=== PATIENT | female | born 1940 | race Caucasian/White ===

== ENCOUNTER 2016-10-31 12:36 | Observation (INO) ==
--- NOTE | 2016-10-31 12:49 | Emergency Department Note ---
Disposition Referrals: NO,PCP [Primary Care Provider] - Forms: ED Satisfaction Letter General Adult HPI - General Chief complaint: ED Arrhythmia/Palpitations Stated complaint: A-Fib Time Seen by Provider: 10/31/16 12:42 Source: patient Limitations: no limitations - History of Present Illness HPI Narrative: Dizziness, palpitations this AM. PCP: Dr. Mc Pain Scale: 0 - Related Data Home Medications Medication Instructions Recorded Confirmed Aspirin [Adult Low Dose Aspirin EC] 81 mg PO DAILY 07/24/15 08/06/15 Gabapentin [Neurontin] 300 mg PO TID 07/24/15 08/06/15 Niacin [Niaspan] 500 mg PO DAILY 07/24/15 08/06/15 [place]-3/Dha/Epa/Fish Oil [Fish Oil 1,000 mg PO TID 07/24/15 08/06/15 Dr 500 mg Softgel] Furosemide [Lasix] 40 mg PO BID 08/11/15 08/11/15 Previous Rx's Medication Instructions Recorded Rivaroxaban [Xarelto] 20 mg PO DAILY #30 tablet 07/27/15 Amiodarone [Cordarone] 200 mg PO DAILY tablet 08/06/15 Diltiazem CD (24hr) [Cardizem CD] 180 mg PO DAILY cap.er.24h 08/06/15 Levalbuterol Neb [Xopenex Neb] 0.63 mg IH [id number] vial.neb 08/06/15 Metoprolol [Lopressor] 50 mg PO BID tablet 08/06/15 Multivit/Ca/Min/Fe/FA [Thera M 1 tab PO DAILY tablet 08/06/15 Plus] Allergies Allergy/AdvReac Type Severity Reaction Status Date / Time Cyclobenzaprine AdvReac Hallucinati Verified 07/24/15 19:41 [From Flexeril] ng fenofibrate [From Tricor] AdvReac Muscle Pain Verified 07/24/15 19:41 Eupxseq-Vmg-Itb Reductase AdvReac Muscle Pain Verified 07/24/15 17:51 Inhibitor [Statins] tramadol [From Ultram] AdvReac Itching Verified 07/24/15 19:41 Past Medical History - Past Medical History Medical history: Reports: arthritis, asthma, atrial fibrillation, cardiomyopathy , CHF, coronary artery disease, GERD, hyperlipidemia, hypertension, myocardial infarction, osteoporosis, pulmonary embolus, SVT, syncope, valvular heart disease, other Surgical history: Reports: cataract, cholecystectomy, knee replacement, other Psychiatric history: Reports: anxiety, depression - Social History Smoking Status: Never smoker Smokeless Tobacco Status: No Alcohol use: Reports: none Drug use: Reports: none Physical Exam - General Limitations: no limitations General appearance: alert Course Vital Signs Temperature 97.3 F L 10/31/16 12:37 Pulse Rate 104 10/31/16 12:37 Respiratory Rate 18 10/31/16 12:37 Blood Pressure 140/95 10/31/16 12:37 O2 Sat by Pulse Oximetry 98 10/31/16 12:37 Temperature 97.3 F L 10/31/16 12:37 Pulse Rate 104 10/31/16 12:37 Respiratory Rate 18 10/31/16 12:37 Blood Pressure 140/95 10/31/16 12:37 O2 Sat by Pulse Oximetry 98 10/31/16 12:37 Oxygen Delivery Oxygen Delivery Room Air
[2016-10-31] MEDS ORDERED: 0.9 % Sodium Chloride 500 ML ONE (13:15)
--- NOTE | 2016-10-31 13:16 | Emergency Department Note ---
Disposition Clinical Impression: Atrial fibrillation with RVR, Elevated troponin Congestive heart failure Qualifiers: Congestive heart failure type: unspecified congestive heart failure type Congestive heart failure chronicity: unspecified congestive heart failure chronicity Qualified Code(s): I50.9 - Heart failure, unspecified Dyspnea Qualifiers: Dyspnea type: dyspnea on exertion Qualified Code(s): R06.09 - Other forms of dyspnea Disposition: Admitted As Inpatient Condition: Good Referrals: NO,PCP [Primary Care Provider] - Forms: ED Satisfaction Letter General Adult HPI - General Chief complaint: ED Arrhythmia/Palpitations Stated complaint: A-Fib Time Seen by Provider: 10/31/16 12:42 Source: patient Limitations: no limitations Nursing Notes Reviewed: Yes Vital Signs Reviewed: Yes - History of Present Illness HPI Narrative: 76-year-old female who reports approximately 4 days of palpitations, fatigue, dyspnea with exertion. She has a history of A. fib and is on metoprolol 50 BID and Xarelto. She is also on aspirin, Lasix 40 twice a day due to CHF, gabapentin. She is on chronic oxygen therapy at home she reports this is due to a prior collapsed lung. She denies having any chest pain. Denies any lower extremity edema. Denies any blood in her stool. She called the rope tow operator who recommended she come to the emergency department. Radiation: non-radiation Pain Scale: 0 Consistency: constant Improves with: nothing Worsens with: nothing Associated symptoms: Reports: denies other symptoms Treatments Prior to Arrival: none - Related Data Home Medications Medication Instructions Recorded Confirmed Aspirin [Adult Low Dose Aspirin EC] 81 mg PO DAILY 07/24/15 08/06/15 Gabapentin [Neurontin] 300 mg PO TID 07/24/15 08/06/15 Niacin [Niaspan] 500 mg PO DAILY 07/24/15 08/06/15 Furosemide [Lasix] 40 mg PO BID 08/11/15 08/11/15 Nystatin Cream [Mycostatin Cream] 1 appl TP TID PRN 10/31/16 10/31/16 Oxygen 2 l NS CONT 10/31/16 10/31/16 Potassium Chloride [K-Tab ER] 20 meq PO BID 10/31/16 10/31/16 Previous Rx's Medication Instructions Recorded Rivaroxaban [Xarelto] 20 mg PO DAILY #30 tablet 07/27/15 Levalbuterol Neb [Xopenex Neb] 0.63 mg IH [id number] vial.neb 08/06/15 Metoprolol [Lopressor] 50 mg PO BID tablet 08/06/15 Multivit/Ca/Min/Fe/FA [Thera M 1 tab PO DAILY tablet 08/06/15 Plus] Allergies Allergy/AdvReac Type Severity Reaction Status Date / Time Cyclobenzaprine AdvReac Hallucinati Verified 07/24/15 19:41 [From Flexeril] ng fenofibrate [From Tricor] AdvReac Muscle Pain Verified 07/24/15 19:41 Mjbjley-Pre-Mny Reductase AdvReac Muscle Pain Verified 07/24/15 17:51 Inhibitor [Statins] tramadol [From Ultram] AdvReac Itching Verified 07/24/15 19:41 All systems ED: reviewed and negative except as stated. Constitutional: Denies: fever Eyes: Denies: vision change ENT ED: Denies: throat pain Cardiovascular: Reports: palpitations, dyspnea on exertion. Denies: chest pain Respiratory: Reports: dyspnea. Denies: cough, wheezes Gastrointestinal: Denies: abdominal pain, nausea, vomiting Genitourinary: Denies: dysuria Musculoskeletal: Denies: back pain Integumentary: Denies: rash Neurological: Denies: headache Endocrine: Reports: fatigue Past Medical History - Past Medical History Medical history: Reports: arthritis, asthma, atrial fibrillation, cardiomyopathy , CHF, coronary artery disease, GERD, hyperlipidemia, hypertension, myocardial infarction, osteoporosis, pulmonary embolus, SVT, syncope, valvular heart disease, other Surgical history: Reports: cataract, cholecystectomy, knee replacement, other Psychiatric history: Reports: anxiety, depression - Social History Smoking Status: Never smoker Smokeless Tobacco Status: No Alcohol use: Reports: none Drug use: Reports: none Physical Exam - General Limitations: no limitations General appearance: alert - Head Head exam: atraumatic - Eye Eye exam: Present: normal appearance, PERRL, EOMI - ENT ENT exam: normal exam, normal oropharynx - Neck Neck exam: Present: normal inspection - Chest Chest inspection: Present: normal inspection - Respiratory Respiratory exam: Present: normal lung sounds bilaterally. Absent: respiratory distress - Cardiovascular Cardiovascular exam: Present: tachycardia, irregular rhythm - Abdominal Exam Abdominal exam: Present: soft, Non-Tender - Extremities Exam Extremities exam: Present: normal inspection. Absent: pedal edema - Neurological Exam Neurological exam: Present: alert, oriented X3 - Psychiatric Psychiatric exam: Present: normal affect, normal mood - Skin Skin exam: Present: warm, dry Course Course Narrative: 76-year-old female with a history of A. fib is apparently in atrial fibrillation with RVR. Heart rate on the EKG is [address] segment depression. LVH is also present. Her only rate control medication is metoprolol 50 twice a day. I had a discussion with the patient about admission for rate control which she is agreeable to. She wanted to let me know that her CODE STATUS is DNR CC. She does not want intubation or chest compressions. She would like medications control her heart rate, prevent further complications , improve her quality of life. She is not having any chest pain. She denies any precipitating events such as illness, fever, chest pain, injury. We will start on rate control medication and admit - Reevaluation(s) Reevaluation #1: Mildly elevated troponin but this is not surprising with having a rate as high as she has for so long. Respiratory lab work is relatively baseline. She will be admitted to the hospital for further rate control. Rate is significantly improved with a heart rate of 105 after starting the Cardizem drip. Dr meraz has been paged. Vital Signs Temperature 97.3 F L 10/31/16 12:37 Pulse Rate 104 10/31/16 12:37 Respiratory Rate 18 10/31/16 12:37 Blood Pressure 140/95 10/31/16 12:37 O2 Sat by Pulse Oximetry 98 10/31/16 12:37 Temperature 97.3 F L 10/31/16 12:37 Pulse Rate 88 10/31/16 14:36 Respiratory Rate 16 10/31/16 14:36 Blood Pressure 124/105 10/31/16 14:36 O2 Sat by Pulse Oximetry 94 10/31/16 14:36 Oxygen Delivery Oxygen Delivery Nasal Cannula Medical Decision Making - Medical Records Medical records reviewed: Yes I reviewed the patient's medical records. - Lab Data Lab results reviewed: Yes I reviewed the patient's lab results. Result diagrams: 10/31/16 13:37 10/31/16 13:37 Lab Results 10/31/16 10/31/16 10/31/16 Range/Units 13:37 13:37 13:37 WBC 7.2 (4.3-11.1) K/mcL RBC 4.55 (3.82-4.97) M/mcL Hgb 14.1 (11.5-15.4) g/dL Hct 42.8 (35.3-44.9) % MCV 94.1 (83.0-100.0) fL MCH 31.0 (28.0-33.3) pg MCHC 32.9 (31.6-35.5) g/dL RDW 14.1 (11.5-14.5) % Plt Count 198 (140-400) K/mcL MPV 10.5 (9.4-12.4) fL Immature Gran % 0.4 (0-4) % Seg Neutrophils % 79.8 % Lymphocytes % 12.4 % Monocytes % 6.0 % Eosinophils % 1.1 % Basophils % 0.3 % Neutrophils # 5.7 (1.6-8.9) K/mcL Lymphocytes # 0.9 (0.6-4.6) K/mcL Monocytes # 0.4 (0.0-1.3) K/mcL Eosinophils # 0.1 (0.0-0.6) K/mcL Basophils # 0.0 (0.0-0.2) K/mcL PT 24.8 H (9.4-12.1) Seconds INR 2.2 APTT 39.5 H (26.0-36.0) Seconds Sodium 141 (136-145) mEq/L Potassium 5.2 H (3.5-4.5) mEq/L Chloride 109 (98-109) mEq/L Carbon Dioxide 23 (19-29) mEq/L BUN 27 H (7-20) mg/dL Creatinine 1.16 H (0.57-1.11) mg/dL Est GFR ( Amer) 55 L (> 60) Est GFR (Non-Af Amer) 46 L (> 60) BUN/Creatinine Ratio 23 (6-26) Glucose 130 H (70-99) mg/dL Calculated Osmolality 299 (280-300) Calcium 10.1 (8.6-10.8) mg/dL Magnesium 2.2 (1.6-2.6) mg/dL Troponin I (0-0.03) ng/mL 10/31/16 Range/Units 13:37 WBC (4.3-11.1) K/mcL RBC (3.82-4.97) M/mcL Hgb (11.5-15.4) g/dL Hct (35.3-44.9) % MCV (83.0-100.0) fL MCH (28.0-33.3) pg MCHC (31.6-35.5) g/dL RDW (11.5-14.5) % Plt Count (140-400) K/mcL MPV (9.4-12.4) fL Immature Gran % (0-4) % Seg Neutrophils % % Lymphocytes % % Monocytes % % Eosinophils % % Basophils % % Neutrophils # (1.6-8.9) K/mcL Lymphocytes # (0.6-4.6) K/mcL Monocytes # (0.0-1.3) K/mcL Eosinophils # (0.0-0.6) K/mcL Basophils # (0.0-0.2) K/mcL PT (9.4-12.1) Seconds INR APTT (26.0-36.0) Seconds Sodium (136-145) mEq/L Potassium (3.5-4.5) mEq/L Chloride (98-109) mEq/L Carbon Dioxide (19-29) mEq/L BUN (7-20) mg/dL Creatinine (0.57-1.11) mg/dL Est GFR ( Amer) (> 60) Est GFR (Non-Af Amer) (> 60) BUN/Creatinine Ratio (6-26) Glucose (70-99) mg/dL Calculated Osmolality (280-300) Calcium (8.6-10.8) mg/dL Magnesium (1.6-2.6) mg/dL Troponin I 0.04 H* (0-0.03) ng/mL - Radiology Data Radiology results reviewed: Yes I reviewed the patient's radiology results. - EKG Data EKG #1 EKG attestation: Yes I reviewed and interpreted this EKG. Rate: tachycardia Rhythm: A.Fib [place]/QRS: left axis deviation ST segment depression in: v3, v4, v5, v6 Interpretation: other (A. fib with RVR with heart rate of 165) Critical Care Time Critical Care Time: Yes Total Critical Care Time: 35 Attestation: critical care time spent in medical management of rate control of A fib. Attestation Statement - Attestation Attestation: I examined this patient and my medical decision-making was reviewed with the ASSISTANT STATISTICIAN/PA/Advanced Practice Nurse/Resident Physician. I agree with the documented findings, disposition and treatment plan as described except to the extent set forth below.
[2016-10-31 13:44] LABS: Basophils % 0.3 %; Eosinophils # 0.1 K/mcL (0.0-0.6); Eosinophils % 1.1 %; Hematocrit 42.8 % (35.3-44.9); Hemoglobin 14.1 g/dL (11.5-15.4); Immature Granulocytes % 0.4 % (0-4); Lymphocytes # 0.9 K/mcL (0.6-4.6); Lymphocytes % 12.4 %; Mean Corpuscular HGB Conc 32.9 g/dL (31.6-35.5); Mean Corpuscular Volume 94.1 fL (83.0-100.0); Mean Platelet Volume 10.5 fL (9.4-12.4); Monocytes # 0.4 K/mcL (0.0-1.3); Neutrophils # 5.7 K/mcL (1.6-8.9); Platelet Count 198 K/mcL (140-400); Red Blood Count 4.55 M/mcL (3.82-4.97); Red Cell Distribution Width 14.1 % (11.5-14.5); Segmented Neutrophils % 79.8 %
[2016-10-31 13:50] LABS: INR 2.2; Prothrombin Time 24.8 Seconds (9.4-12.1)
[2016-10-31 13:53] LABS: Activated Partial Thrombo Time 39.5 Seconds (26.0-36.0)
[2016-10-31 13:59] LABS: Calcium 10.1 mg/dL (8.6-10.8); Magnesium 2.2 mg/dL (1.6-2.6); Potassium 5.2 mEq/L (3.5-4.5)
[2016-10-31] MEDS ORDERED: NON-FORMULARY MEDICATION 1 EACH EACH (Oxygen [Oxygen] 2 L) NS SCH (17:00)
[2016-10-31] MEDS ORDERED: Calcium Gluconate 1,000 MG in D5% in Water 100 ML IVPB ONE (17:04)
[2016-10-31] MEDS ORDERED: *HR* Digoxin 0.5 MG/2 ML AMPUL IVP ONE (17:06)
--- NOTE | 2016-10-31 17:12 | Internal Med History&Physical ---
Date of Encounter: 10/31/16 Time of Encounter: 17:08 Assessment and Plan (1) Atrial fibrillation with RVR Current visit: No Status: Acute Patient in aFib with rapid ventricular response. Currently on Cardizem drip 5 mg per hour. We will titrate to keep heart rate less than 100 so long blood pressure tolerates. During my interview heart rate was running around 120s. I will give a dose of digoxin .25 mg IV. Patient is on metoprolol 50 mg twice a day will continue. She had similar presentations a year ago with uncontrollable atrial fibrillation rates was transferred to outside facility for electrophysiology opinion. She mentioned she has not had any ablation but had cardioversions. She mentioned that she has been maintaining sinus rhythm the past year. She is on xarelto for anticoagulation, will continue (2) NSTEMI (non-ST elevated myocardial infarction) Current visit: No Status: Acute She denies any chest pain. Suspect NSTEMI type 2 due to demand ischemia. In 2009 patient had a coronary angiogram showed mild coronary artery disease. Internal Medicine - H&P: HPI Chief complaint: palpitations and OSB History of present illness: Ms. Bacon is a 76 year old female with history of parts displease defibrillation currently on metoprolol 50 mg twice a day and xarelto stroke prophylaxis presented emergency today with the main complain of palpitations and shortness of breath. Patient mentioned that since she started noticing palpitations which she describes as rapid and irregular. She was noting that she would get short of breath with any minimal exertion. She has minimal lower extremity swelling, denies orthopnea or paroxysmal nocturnal dyspnea. She was found to be major fibrillation with rapid ventricular response analysis emergency room heart rate was around 180s. She was started on Cardizem drip with improvement over rate to 110-120. She had problems with weight control for her atrial fibrillation before. She had to be transferred to [place] last year or electrophysiology evaluation. She does not recall that she had any ablation procedure. She denies any chest pain. She had an angiogram in 2009 showing mild coronary artery disease. She denies any recent febrile illness. No fever chills cough expectoration or urinary symptoms. Past Med Surg Social Fam HX - Past Medical History Medical history: arthritis, asthma, atrial fibrillation, cardiomyopathy, CHF, coronary artery disease, GERD, hyperlipidemia, hypertension, myocardial infarction, osteoporosis, pulmonary embolus, SVT, syncope, valvular heart disease, other Psychiatric history: anxiety, depression - Past Surgical History Surgical History: cataract, cholecystectomy, knee replacement, other - Social History Smoking Status: Never smoker Smokeless Tobacco Status: No Alcohol use: none Drug use: none - Family History Son Family Member Ethnicity: Non- Living Status: Still Living Hx Family Cardiac Disorders: Yes (ME, AFIB) Hx Family Endocrine Disorder: Yes (DM) Mother Living Status: Hx Family Cardiac Disorders: Yes (CHF) Internal Medicine - H&P: Meds Aspirin [Adult Low Dose Aspirin EC] 81 mg PO DAILY 07/24/15 [History] Gabapentin [Neurontin] 300 mg PO TID 07/24/15 [History] Niacin [Niaspan] 500 mg PO DAILY 07/24/15 [History] Rivaroxaban [Xarelto] 20 mg PO DAILY #30 tablet 07/27/15 [Rx] Levalbuterol Neb [Xopenex Neb] 0.63 mg IH [id number] vial.neb 08/06/15 [Rx] Metoprolol [Lopressor] 50 mg PO BID tablet 08/06/15 [Rx] Multivit/Ca/Min/Fe/FA [Thera M Plus] 1 tab PO DAILY tablet 08/06/15 [Rx] Furosemide [Lasix] 40 mg PO BID 08/11/15 [History] Nystatin Cream [Mycostatin Cream] 1 appl TP TID PRN 10/31/16 [History] Oxygen 2 l NS CONT 10/31/16 [History] Potassium Chloride [K-Tab ER] 20 meq PO BID 10/31/16 [History] Allergies Cyclobenzaprine [From Flexeril] Adverse Reaction (Verified 07/24/15 19:41) Hallucinating fenofibrate [From Tricor] Adverse Reaction (Verified 07/24/15 19:41) Muscle Pain Hvloroe-Tdd-Eis Reductase Inhibitor [Statins] Adverse Reaction (Verified 17:51) Muscle Pain tramadol [From Ultram] Adverse Reaction (Verified 07/24/15 19:41) Itching All Systems PM: A 10-system review of systems was performed and is negative for pertinent findings except as documented above in the HPI. Review of systems: 10 point review of systems is negative except for HPI - Constitutional Vitals: Temp Pulse Resp BP Pulse Ox 97.4 F L 96 18 150/93 94 10/31/16 16:43 10/31/16 16:43 10/31/16 16:43 10/31/16 16:43 10/31/16 16:43 Exam: Gen.: patient is alert oriented times 3 cardiac: variable intensity of S1 due to AFib. No murmurs chest: rales in the bases abdomen soft nontender nondistended normal bowel sounds lower extremity no swelling. Neuro: no new focal deficits Internal Med - H&P Results - Labs CBC & Chem 7: 10/31/16 13:37 10/31/16 13:37
[2016-10-31] MEDS: Furosemide 20 MG/2 ML VIAL IVP SCH (17:59)
[2016-10-31] MEDS ORDERED: Levalbuterol Neb 0.63 MG/3 ML IH PRN (19:00)
[2016-10-31] MEDS: Gabapentin 300 MG CAPSULE PO SCH (21:39)
[2016-11-01] MEDS ORDERED: 0.9 % Sodium Chloride 500 ML ONE (04:32)
[2016-11-01 05:09] LABS: Basophils % 0.4 %; Eosinophils # 0.2 K/mcL (0.0-0.6); Eosinophils % 4.3 %; Hematocrit 40.2 % (35.3-44.9); Hemoglobin 13.6 g/dL (11.5-15.4); Immature Granulocytes % 0.2 % (0-4); Lymphocytes # 0.8 K/mcL (0.6-4.6); Lymphocytes % 15.8 %; Mean Corpuscular HGB Conc 33.8 g/dL (31.6-35.5); Mean Corpuscular Hemoglobin 31.6 pg (28.0-33.3); Mean Corpuscular Volume 93.3 fL (83.0-100.0); Mean Platelet Volume 10.8 fL (9.4-12.4); Monocytes # 0.3 K/mcL (0.0-1.3); Monocytes % 6.5 %; Neutrophils # 3.7 K/mcL (1.6-8.9); Platelet Count 162 K/mcL (140-400); Red Blood Count 4.31 M/mcL (3.82-4.97); Segmented Neutrophils % 72.8 %
[2016-11-01 05:25] LABS: BUN/Creatinine Ratio 25 (6-26); Blood Urea Nitrogen 22 mg/dL (7-20); Calcium 9.3 mg/dL (8.6-10.8); Carbon Dioxide 26 mEq/L (19-29); Chloride 107 mEq/L (98-109); Creatine Kinase 60 Units/L (29-168); Glucose 87 mg/dL (70-99); Osmolality,Calculated 297 (280-300); Sodium 142 mEq/L (136-145); eGFR For African Americans > 60 (> 60); eGFR For Non-African Americans > 60 (> 60)
[2016-11-01 05:26] LABS: Potassium 3.9 mEq/L (3.5-4.5)
[2016-11-01 05:47] LABS: Thyroid Stimulating Hormone 3.783 mcIU/mL (0.350-4.840)
[2016-11-01] MEDS: Aspirin Enteric Coated 81 MG Tablet PO SCH (08:46)
[2016-11-01] MEDS: Furosemide 20 MG/2 ML VIAL IVP SCH (08:46)
[2016-11-01] MEDS: Gabapentin 300 MG CAPSULE PO SCH ×3 (08:46→20:42)
[2016-11-01] MEDS: Niacin (24 HR) 500 MG TAB.ER.24H PO SCH (08:46)
--- NOTE | 2016-11-01 09:48 | Cardiology Consult Note ---
<Abhi Hernandez R - Last Filed: 11/01/16 10:02> Date of Encounter: 11/01/16 Time of Encounter: 09:44 Assessment and Plan (1) Atrial fibrillation with RVR Current Visit: No Status: Acute Known hx of Paroxysmal A-Fib, anticoagulated on Xarelto. INR was 2.2 on admission, but creatinine was mildly elevated, now normal. Symptoms started last week, found to be in A-Fib with RVR on presentation to PCP office yesterday. Previously on amiodarone, stopped due to pulmonary toxicity. Pt is on Lopressor 50mg BID at home. Currently on cardizem gtt at 5mg/hr and rate controlled A-Fib. Will transition to PO Cardizem CD 120mg daily. I discussed with pt regarding initiating antiarrhythmic therapy (Sotalol or Rythmol) during inpt stay given recurrent admissions for A-Fib and prior cardioversions. Pt would like to be discharged home with rate control strategy and follow-up with Dr. Daquan Perez as outpt to discuss/plan antiarrhythmic initiation if appropriate. Check echo. Prior echo 07/2015 EF preserved, mild-moderately dilated left atrium. [facility] 04/2010 minimal CAD. If echo shows no significant change and pt remains rate controlled with transition to PO Cardizem, will sign off from cardiology standpoint and follow- up as outpt. (2) Elevated troponin Current Visit: No Status: Acute Borderline 0.04, 0.05, 0.04 in setting of A-Fib with RVR, nondiagnostic for ACS. Pt denies chest pain. Echo ordered. [facility] 04/2010 minimal CAD. Discussion w patient/family: The assessment and plan as outlined above was discussed with the patient and/or family members who expressed understanding and agreement. All questions were answered. Thank you for involving us in the care of your patient. Please call with any questions. I will discuss all the above with Dr. Benton and make changes as necessary. History of Present Illness Consult date: 11/01/16 Requesting physician: Andry Chau Consult reason: A-Fib RVR Chief complaint: dyspnea, palpitations History of present illness: Ms. Bacon is a 76 year old female with history of PAF, COPD, and diastolic CHF. Previously, she was on amiodarone, which was stopped secondary to pulmonary toxicity. She had a LAINA guided cardioversion in 07/2015 at [place], reports a second cardioversion performed at [facility]. She is now on supplemental oxygen. She was seen by Dr. Liang as outpt 10/25/16 and in her usual state of health. She states last Monday is when initial symptoms started. She began feeling bad in general and noticed her BP and HR fluctuating. Over the past week her HR has gradually increased. She was symptomatic with palpitations, dyspnea, nausea, and weakness. She denies chest pain. She went to see her PCP yesterday, was in A-Fib with RVR rate 150s and send to ED. She was started on a cardizem gtt and is currently rate controlled at bedside on 5mg/hr of IV Cardizem. She reports now feeling much better and symptoms have resolved. Troponins 0.04, 0.05, 0.04. Previous testing: TTE 07/25/2015: LVEF 55-60%. Mild concentric LVH. Mild to moderately dilated left atrium. Mild aortic regurgitation. Moderate mitral regurgitation. No evidence of pulmonary hypertension identified. LAINA-guided cardioversion 07/24/2015: LVEF 55%. Mild concentric LVH. Moderate to severely dilated left atrium. No left atrial appendage thrombus. PFO noted with predominant hult-do-vbyxh shunt. Mild aortic regurgitation. Mild to moderate mitral regurgitation. Mild tricuspid regurgitation. Successful synchronized cardioversion utilizing 150 J. [facility] 04/26/10: Minimal CAD. Past Med Surg Social Fam HX - Past Medical History Medical history: arthritis, asthma, atrial fibrillation, CHF, coronary artery disease, hyperlipidemia, hypertension, myocardial infarction, osteoporosis, pulmonary embolus, SVT, syncope, valvular heart disease Psychiatric history: anxiety, depression - Past Surgical History Surgical History: cataract, cholecystectomy, knee replacement, other - Social History Smoking Status: Never smoker Smokeless Tobacco Status: No Alcohol use: none Drug use: none - Family History Son Family Member Ethnicity: Non- Living Status: Still Living Hx Family Cardiac Disorders: Yes (DE, AFIB) Hx Family Endocrine Disorder: Yes (DM) Mother Living Status: Hx Family Cardiac Disorders: Yes (CHF) Medications and Allergies Aspirin [Adult Low Dose Aspirin EC] 81 mg PO DAILY 07/24/15 [History] Gabapentin [Neurontin] 300 mg PO TID 07/24/15 [History] Niacin [Niaspan] 500 mg PO DAILY 07/24/15 [History] Rivaroxaban [Xarelto] 20 mg PO DAILY #30 tablet 07/27/15 [Rx] Levalbuterol Neb [Xopenex Neb] 0.63 mg IH [id number] vial.neb 08/06/15 [Rx] Metoprolol [Lopressor] 50 mg PO BID tablet 08/06/15 [Rx] Multivit/Ca/Min/Fe/FA [Thera M Plus] 1 tab PO DAILY tablet 08/06/15 [Rx] Furosemide [Lasix] 40 mg PO BID 08/11/15 [History] Nystatin Cream [Mycostatin Cream] 1 appl TP TID PRN 10/31/16 [History] Oxygen 2 l NS CONT 10/31/16 [History] Potassium Chloride [K-Tab ER] 20 meq PO BID 10/31/16 [History] Allergies Cyclobenzaprine [From Flexeril] Adverse Reaction (Verified 07/24/15 19:41) Hallucinating fenofibrate [From Tricor] Adverse Reaction (Verified 07/24/15 19:41) Muscle Pain Bdidboe-Ycg-Jbc Reductase Inhibitor [Statins] Adverse Reaction (Verified 17:51) Muscle Pain tramadol [From Ultram] Adverse Reaction (Verified 07/24/15 19:41) Itching All Systems Review: A 10-system review of systems was performed and is negative for pertinent findings except as documented above in the HPI. - Constitutional Constitutional: weakness - Cardiovascular Cardiovascular: as per HPI, dyspnea at rest, dyspnea on exertion, irregular heart rhythm, palpitations, rapid heart rate - Gastrointestinal Gastrointestinal: nausea Physical Examination Vital Signs, Last 4 Hours Temp Pulse Resp BP Pulse Ox 11/01/16 07:48 97.8 F 81 16 122/77 95 Vital Signs Temp Pulse Resp BP Pulse Ox 11/01/16 07:48 97.8 F 81 16 122/77 95 11/01/16 05:25 18 94 11/01/16 03:46 97.9 F 82 16 143/78 92 10/31/16 22:28 97.6 F 70 16 130/93 92 10/31/16 18:48 78 16 173/99 96 10/31/16 16:43 97.4 F L 96 18 150/93 94 10/31/16 15:22 16 153/117 10/31/16 14:36 88 16 124/105 94 10/31/16 14:00 94 16 116/97 94 10/31/16 13:29 107 16 104/92 91 10/31/16 13:20 181 18 121/104 91 10/31/16 12:37 97.3 F L 104 18 140/95 98 Intake and Output 10/31/16 11/01/16 11/01/16 23:59 07:59 15:59 Intake Total 500 / 500 360 / 360 Output Total 900 / 900 500 / 500 Balance -400 / -400 -500 / -500 360 / 360 Intake: Oral 500 / 500 360 / 360 Output: Urine 900 / 900 500 / 500 Other: Meal Breakfast Percent of Meal Consumed 100% # Voids 2 Weight 93.621 kg General: Conversant, No Apparent Distress HEENT: Atraumatic, Normocephaly, Mucus Membranes Moist Neck: No JVD, Normal carotid pulses Cardiac: Other (irregularly irregular rhythm) Lungs: Normal Breath Sounds, No Wheeze, Rales, Rhonchi Neuro: Alert and responsive, No focal deficits noted Abdomen: Soft, Non-Tender Skin: No rashes noted on visualized skin Musculoskeletal: No Chest Wall Tenderness Extremities: No Clubbing, No Cyanosis, No Edema, Normal Pulses Results 11/01/16 04:45 11/01/16 04:45 Lab Results 10/31/16 11/01/16 11/01/16 20:15 04:45 04:45 WBC 5.1 Hgb 13.6 Hct 40.2 Plt Count 162 Sodium 142 Potassium 3.9 D Chloride 107 Carbon Dioxide 26 BUN 22 H Creatinine 0.87 Glucose 87 Calcium 9.3 Magnesium 2.0 Troponin I 0.05 H* TSH 3.783 11/01/16 04:45 WBC Hgb Hct Plt Count Sodium Potassium Chloride Carbon Dioxide BUN Creatinine Glucose Calcium Magnesium Troponin I 0.04 H* TSH Short CBC 11/01/16 10/31/16 Range/Units 04:45 13:37 WBC 5.1 7.2 (4.3-11.1) K/mcL Hgb 13.6 14.1 (11.5-15.4) g/dL Hct 40.2 42.8 (35.3-44.9) % Plt Count 162 198 (140-400) K/mcL Neutrophils # 3.7 5.7 (1.6-8.9) K/mcL BMP 11/01/16 10/31/16 Range/Units 04:45 13:37 Sodium 142 141 (136-145) mEq/L Potassium 3.9 D 5.2 H (3.5-4.5) mEq/L Chloride 107 109 (98-109) mEq/L Carbon Dioxide 26 23 (19-29) mEq/L BUN 22 H 27 H (7-20) mg/dL Creatinine 0.87 1.16 H (0.57-1.11) mg/dL Glucose 87 130 H (70-99) mg/dL Calcium 9.3 10.1 (8.6-10.8) mg/dL Cardiac Enzymes 11/01/16 10/31/16 10/31/16 Range/Units 04:45 20:15 13:37 Troponin I 0.04 H* 0.05 H* 0.04 H* (0-0.03) ng/mL Impressions Chest X-Ray 10/31/16 12:53 IMPRESSION: Cardiomegaly with mild pulmonary edema. A small left pleural effusion is suspected. D/ / Robert Lo MD / Robert Lo MD Interpreting Provider: Robert Lo MD Active Medications Aspirin (Aspirin Ec) 81 mg PO DAILY [facility] Stop: 05/03/17 09:01 Last Admin: 11/01/16 08:46 Dose: 81 mg Furosemide (Lasix) 20 mg IVP DAILY [facility] Stop: 05/02/17 17:31 Last Admin: 11/01/16 08:46 Dose: 20 mg Gabapentin (Neurontin) 300 mg PO TID [facility] Stop: 05/02/17 21:01 Last Admin: 11/01/16 08:46 Dose: 300 mg Diltiazem HCl 125 mg/ Dextrose 125 mls @ 5 mls/hr IVC .Q24H LENIN; 5 MG/HR PRN Reason: Protocol Stop: 05/02/17 13:16 Last Admin: 10/31/16 13:48 Dose: 5 mg/hr, 5 mls/hr Levalbuterol HCl (Xopenex) 0.63 mg IH [id number] PRN PRN Reason: Dyspnea Stop: 05/02/17 22:01 Last Admin: 11/01/16 05:24 Dose: 0.63 mg Metoprolol Tartrate (Lopressor) 50 mg PO BID [facility] Stop: 05/02/17 21:01 Last Admin: 11/01/16 08:46 Dose: 50 mg Niacin (Niaspan) 500 mg PO DAILY [facility] Stop: 05/03/17 09:01 Last Admin: 11/01/16 08:46 Dose: 500 mg Rivaroxaban (Xarelto) 20 mg PO DAILY@1700 [facility] Stop: 05/03/17 17:01 - Imaging and Cardiology Echo: report reviewed - EKG Interpretation EKG results cardiology: personally reviewed (A-Fib RVR rate 150s-160s.), other ( 24 hour tele AVG HR 92, A-Fib, longest pause 2.5 seconds.) Consult Discharge Plan - Plan Referrals: Mello Mc MD [Primary Care Provider] - 11/08/16 10:00 am (Please follow up as schedule...) <Betsy Benton - Last Filed: 11/01/16 16:58> Date of Encounter: 11/01/16 Assessment and Plan Discussion w patient/family: The assessment and plan as outlined above was discussed with the patient and/or family members who expressed understanding and agreement. All questions were answered. Thank you for involving us in the care of your patient. Please call with any questions. History of Present Illness History of present illness: Ms. Bacon is a 76 year old female All Systems Review: A 10-system review of systems was performed and is negative for pertinent findings except as documented above in the HPI. Physical Examination Vital Signs, Last 4 Hours Temp Pulse Resp BP Pulse Ox 11/01/16 15:46 97.5 F L 91 16 130/89 94 Results 11/01/16 04:45 11/01/16 04:45 Lab Results 10/31/16 11/01/16 11/01/16 20:15 04:45 04:45 WBC 5.1 Hgb 13.6 Hct 40.2 Plt Count 162 Sodium 142 Potassium 3.9 D Chloride 107 Carbon Dioxide 26 BUN 22 H Creatinine 0.87 Glucose 87 Calcium 9.3 Magnesium 2.0 Troponin I 0.05 H* TSH 3.783 11/01/16 04:45 WBC Hgb Hct Plt Count Sodium Potassium Chloride Carbon Dioxide BUN Creatinine Glucose Calcium Magnesium Troponin I 0.04 H* TSH - Attending Attestation I examined this patient and my medical decision-making was reviewed with the DREDGE RUNNER/PA/Advanced Practice Nurse/Resident Physician. I agree with the documented findings, disposition and treatment plan. Patient presents with AFIB RVR in setting of ARF on CKD. Renal function is improving. Heart rates are improving with addition of cardizem. Will re- evaluate tomorrow. Previous lung toxicity to amiodarone. Mild elevated troponins are not diagnostic for ACS. Checking echo.
[2016-11-01] MEDS ORDERED: Diltiazem CD (24hr) 120 MG CAPSULE PO SCH (10:45)
[2016-11-01] MEDS ORDERED: *HR* Rivaroxaban 10 MG TABLET PO SCH (17:00)
[2016-11-01] MEDS ORDERED: *HR* Rivaroxaban 15 MG TABLET PO SCH (17:00)
[2016-11-01] MEDS: Furosemide 40 MG TABLET PO SCH (17:01)
--- NOTE | 2016-11-01 17:46 | Internal Med Progress Note ---
Date of Encounter: 11/01/16 Time of Encounter: 10:00 - Assessment and plan (1) Atrial fibrillation with RVR Current Visit: No Status: Acute Assessment and plan: Improved after treatment. Heart rate 90 now. On by mouth Cardizem and metoprolol. On xarelto for anticoagulation. (2) DVT prophylaxis Current Visit: No Status: Acute Assessment and plan: On xarelto (3) Hypertension Current Visit: Yes Status: Acute Assessment and plan: Stable. Cardizem CD 120 mg by mouth daily added. Monitor BP change. Qualifiers: Hypertension type: essential hypertension Qualified Code(s): I10 - Essential (primary) hypertension - Time Spent With Patient 25 - 35 minutes - Subjective Interval history: Patient is a 76-year-old female admitted for A. fib with rapid ventricular response. Past medical history is significant for A. fib on xarelto, asthma, CHF, CAD, hyperlipidemia, hypertension, valvular heart disease. She was seen and examined. Patient feels fine. No chest pain or shortness of breath. No palpitation. Her heart rate has been controlled with Cardizem drip , switched to by mouth Cardizem right now. Cardiology consult appreciated. Echo done, shows valvular heart disease with moderate mitral valve stenosis, aortic regurgitation. Will continue closely monitor patient and plan to discharge home on by mouth Cardizem and metoprolol in tomorrow a.m. if heart rate and BP is stable. - Constitutional Vitals: Temp Pulse Resp BP Pulse Ox 97.5 F L 91 16 130/89 94 11/01/16 15:46 11/01/16 15:46 11/01/16 15:46 11/01/16 15:46 11/01/16 15:46 General appearance: Present: A&O X 3, no acute distress, answers questions appropriately - Head Head exam: Present: atraumatic, normocephalic - Eye Eye exam: Present: PERRL, conjuntiva pink, sclera anicteric Pupils: Present: PERRL - Neck Neck exam general surgery: Present: supple, trachea midline. Absent: lymphadenopathy - Respiratory Respiratory exam: Present: CTAB. Absent: accessory muscle use, rales, rhonchi, wheezes - Cardiovascular Cardiovascular exam: Present: irregular rhythm, +S1, +S2. Absent: diastolic murmur, gallop, rubs, systolic murmur - GI/Abdominal GI/Abdominal exam: Present: normal bowel sounds, soft, no peritoneal signs. Absent: distended, tenderness - Extremities Exam Extremities exam: Present: warm, radial pulses palpable and symetrical. Absent : calf tenderness, cyanotic, pedal edema - Neurological Exam Neurological exam: Present: CN II-XII intact, oriented X3, no focal deficits. Absent: pronater drift, facial droop, speech deficit - Skin Skin exam: Present: dry, intact Internal Medicine: Result - Labs CBC & Chem 7: 11/01/16 04:45 11/01/16 04:45 Labs: Short CBC 11/01/16 Range/Units 04:45 WBC 5.1 (4.3-11.1) K/mcL Hgb 13.6 (11.5-15.4) g/dL Hct 40.2 (35.3-44.9) % Plt Count 162 (140-400) K/mcL Neutrophils # 3.7 (1.6-8.9) K/mcL BMP 11/01/16 04:45 Sodium 142 Potassium 3.9 D Chloride 107 Carbon Dioxide 26 BUN 22 H Creatinine 0.87 Glucose 87 Calcium 9.3 Cardiac Enzymes 10/31/16 11/01/16 Range/Units 20:15 04:45 Troponin I 0.05 H* 0.04 H* (0-0.03) ng/mL - ABG Interpretation ABG results: PT/INR, D-dimer PT 24.8 Seconds (9.4-12.1) H 10/31/16 13:37 Consult Discharge Plan - Plan Referrals: Mello Mc MD [Primary Care Provider] - 11/08/16 10:00 am (Please follow up as schedule...)
--- NOTE | 2016-11-01 18:58 | Electrocardiograph Report ---
[address] [place] [address] Test Date: 2016-10-31 Pat Name: Delores Bacon Department: 102 Room: 2A Gender: F [employer]: Elke : 1940 Requested By: Rustam Hallman Order Number: [id number] Reading MD: Giovana Perez Measurements Intervals [place] Rate: 165 P: IA: 0 QRS: 12 QRSD: 84 T: 35 QT: 253 QTc: 344 Interpretive Statements ATRIAL FIBRILLATION WITH RAPID VENTRICULAR RESPONSE ST DEVIATION AND MODERATE T-WAVE ABNORMALITY, CONSIDER LATERAL ISCHEMIA [-0.1+ mV T WAVE IN I/aVL/V5/V6] Electronically Signed On 11-01-2016 18:56:37 EDT by Giovana Perez
--- NOTE | 2016-11-01 20:05 | Event Note ---
Date of Encounter: 11/01/16 Time of Encounter: 19:00 Discussed code status with pt. Pt state she would like DNR/DNI. Status ordered per pt's wishes.
[2016-11-02] MEDS: Aspirin Enteric Coated 81 MG Tablet PO SCH (08:02)
[2016-11-02] MEDS: Niacin (24 HR) 500 MG TAB.ER.24H PO SCH (08:02)
[2016-11-02] MEDS: Gabapentin 300 MG CAPSULE PO SCH (08:02)
[2016-11-02] MEDS: Furosemide 40 MG TABLET PO SCH (08:02)
[2016-11-02] MEDS ORDERED: Diltiazem CD (24hr) 180 MG CAPSULE PO SCH (09:00)
[2016-11-02] MEDS ORDERED: Diltiazem CD (24hr) 240 MG CAPSULE PO SCH (09:00)
--- NOTE | 2016-11-02 09:46 | Cardiology Progress Note ---
Date of Encounter: 11/02/16 Time of Encounter: 09:42 Assessment and Plan (1) Atrial fibrillation with RVR Current Visit: No Status: Acute Known hx of Paroxysmal A-Fib, anticoagulated on Xarelto. INR was 2.2 on admission, but creatinine was mildly elevated, now normal. Symptoms started last week, found to be in A-Fib with RVR on presentation to PCP office yesterday. Previously on amiodarone, stopped due to pulmonary toxicity. Pt is on Lopressor 50mg BID currently and at home. Pt was on IV Cardizem yesterday, transitioned to PO Cardizem CD. Dose increased to 240mg this AM. Rates now controlled 70s-90s at bedside. 12 hour tele AVG HR 95, A-Fib. I discussed with pt regarding initiating antiarrhythmic therapy (Sotalol or Rythmol) during inpt stay given recurrent admissions for A-Fib and prior cardioversions. Pt would like to be discharged home with rate control strategy and follow-up with Dr. Daquan Perez as outpt to discuss/plan antiarrhythmic initiation if appropriate. Echo EF 50%, moderate valvular disease, severely dilated left atrium. [facility] 04/2010 minimal CAD. Cardiology signing off. Continue Lopressor 50mg BID and Cardizem CD 240mg daily. Reconsult PRN. Coordinating outpt follow-up. (2) Elevated troponin Current Visit: No Status: Acute Borderline 0.04, 0.05, 0.04 in setting of A-Fib with RVR, nondiagnostic for ACS. Pt denies chest pain. Echo EF 50%. [facility] 04/2010 minimal CAD. Discussion w patient/family: The assessment and plan as outlined above was discussed with the patient and/or family members who expressed understanding and agreement. All questions were answered. Thank you for involving us in the care of your patient. Please call with any questions. I will discuss all the above with Dr. Benton and make changes as necessary. Subjective Principal diagnosis: A-Fib RVR Interval history: Pt reports feeling great this AM. 12 hour tele AVG HR 95, A-Fib. Echo EF 50%, moderate valvular dysfunction, severely dilated left atrium. Objective Vital Signs, Last 4 Hours Temp Pulse Resp BP Pulse Ox 11/02/16 08:07 95 11/02/16 07:44 97.5 F L 96 17 123/87 95 Vital Signs Temp Pulse Resp BP Pulse Ox 11/02/16 08:07 95 11/02/16 07:44 97.5 F L 96 17 123/87 95 11/02/16 03:46 97.9 F 90 16 155/77 92 11/02/16 00:30 97.8 F 80 16 133/79 92 11/01/16 19:30 97.7 F 16 169/97 97 11/01/16 15:46 97.5 F L 91 16 130/89 94 11/01/16 12:12 98.3 F 109 18 130/88 92 Intake and Output 11/01/16 11/02/16 11/02/16 23:59 07:59 15:59 Intake Total 240 / 240 360 / 360 Output Total 550 / 550 300 / 300 Balance 240 / 240 -550 / -550 60 / 60 Intake: Oral 240 / 240 360 / 360 Output: Urine 550 / 550 300 / 300 Other: Meal Dinner Breakfast Percent of Meal Consumed 45% 80% Weight 92.624 kg Patient Weight 11/02/16 23:59 Weight 92.624 kg General: Conversant, No Apparent Distress HEENT: Atraumatic, Normocephaly, Mucus Membranes Moist Neck: No JVD, Normal carotid pulses Cardiac: Other (irregularly irregular) Lungs: Normal Breath Sounds, No Wheeze, Rales, Rhonchi Neuro: Alert and responsive, No focal deficits noted Abdomen: Soft, Non-Tender Skin: No rashes noted on visualized skin Musculoskeletal: No Chest Wall Tenderness Extremities: No Clubbing, No Cyanosis, No Edema, Normal Pulses Results 11/01/16 04:45 11/01/16 04:45 Active Medications Aspirin (Aspirin Ec) 81 mg PO DAILY [facility] Stop: 05/03/17 09:01 Last Admin: 11/02/16 08:02 Dose: 81 mg Diltiazem HCl (Cardizem Cd) 240 mg PO DAILY [facility] Stop: 05/04/17 09:01 Last Admin: 11/02/16 08:02 Dose: 240 mg Furosemide (Lasix) 40 mg PO BIDDIURETIC [facility] Stop: 05/03/17 17:01 Last Admin: 11/02/16 08:02 Dose: 40 mg Gabapentin (Neurontin) 300 mg PO TID [facility] Stop: 05/02/17 21:01 Last Admin: 11/02/16 08:02 Dose: 300 mg Levalbuterol HCl (Xopenex) 0.63 mg IH [id number] PRN PRN Reason: Dyspnea Stop: 05/02/17 22:01 Last Admin: 11/01/16 05:24 Dose: 0.63 mg Metoprolol Tartrate (Lopressor) 50 mg PO BID [facility] Stop: 05/02/17 21:01 Last Admin: 11/02/16 08:02 Dose: 50 mg Niacin (Niaspan) 500 mg PO DAILY [facility] Stop: 05/03/17 09:01 Last Admin: 11/02/16 08:02 Dose: 500 mg Potassium Chloride (Potassium Chloride) 20 meq PO BID [facility] Stop: 05/03/17 21:01 Last Admin: 11/02/16 08:02 Dose: 20 meq Rivaroxaban (Xarelto) 20 mg PO DAILY@1700 [facility] Stop: 05/03/17 17:01 Last Admin: 11/01/16 17:01 Dose: 20 mg - Imaging and Cardiology Echo: report reviewed - EKG Interpretation EKG results cardiology: other (12 hour tele AVG HR 95, A-Fib) Consult Discharge Plan - Plan Referrals: Mello Mc MD [Primary Care Provider] - 11/08/16 10:00 am (Please follow up as schedule...)
[2016-11-02 11:52] VITALS: BP 134/78
--- NOTE | 2016-11-02 11:57 | Discharge Summary ---
Date of Encounter: 11/02/16 Time of Encounter: 10:00 - Discharge Diagnosis (1) Atrial fibrillation with RVR Priority: Primary Status: Acute (2) DVT prophylaxis Priority: Secondary Status: Acute (3) Hypertension Priority: Secondary Status: Acute Qualifiers: Hypertension type: essential hypertension Qualified Code(s): I10 - Essential (primary) hypertension - Discharge Medications Prescriptions: Diltiazem CD (24hr) [Cardizem CD] 240 mg PO DAILY #30 cap.er.24h Home Medications: Aspirin [Adult Low Dose Aspirin EC] 81 mg PO DAILY 07/24/15 [History] Gabapentin [Neurontin] 300 mg PO TID 07/24/15 [History] Niacin [Niaspan] 500 mg PO DAILY 07/24/15 [History] Rivaroxaban [Xarelto] 20 mg PO DAILY #30 tablet 07/27/15 [Rx] Levalbuterol Neb [Xopenex Neb] 0.63 mg IH [id number] vial.neb 08/06/15 [Rx] Metoprolol [Lopressor] 50 mg PO BID tablet 08/06/15 [Rx] Multivit/Ca/Min/Fe/FA [Thera M Plus] 1 tab PO DAILY tablet 08/06/15 [Rx] Furosemide [Lasix] 40 mg PO BID 08/11/15 [History] Nystatin Cream [Mycostatin Cream] 1 appl TP TID PRN 10/31/16 [History] Oxygen 2 l NS CONT 10/31/16 [History] Potassium Chloride [K-Tab ER] 20 meq PO BID 10/31/16 [History] Diltiazem CD (24hr) [Cardizem CD] 240 mg PO DAILY #30 cap.er.24h 11/02/16 [Rx] Allergies/Adverse Reactions: Allergies Cyclobenzaprine [From Flexeril] Adverse Reaction (Verified 07/24/15 19:41) Hallucinating fenofibrate [From Tricor] Adverse Reaction (Verified 07/24/15 19:41) Muscle Pain Dpqypuf-Ejx-Ais Reductase Inhibitor [Statins] Adverse Reaction (Verified 17:51) Muscle Pain tramadol [From Ultram] Adverse Reaction (Verified 07/24/15 19:41) Itching Procedures/tests Complete & Pending: Procedures Performed prior 72 hours Category Date Time Status EV echocardiogram Routine Y 11/01/16 17:06 Completed - Notes to Outpatient Provider 1. New home medication Cardizem CD 240 mg by mouth daily added. Please follow- up heart rate and blood pressure. Date of admission: 10/31/16 14:56 Primary care physician: Mello Mc MD Consults: 10/31/16 17:01 Consult to Cardiology [CONS] Routine Comment: Consulting Provider: Cardiology Yuridia Reason for Consult: AFib with RVR Call Completed: Yes Discharging clinician: Eugenio Witt Anticipated date of discharge: 11/02/16 - Patient Status Disposition: Home, Self-Care Condition: Good Functional capacity at discharge: independent ambulation Overall status at discharge: patient is back to baseline - Discharge Instructions Follow Up With: Mello Mc MD [Primary Care Provider] - 11/08/16 10:00 am (Please follow up as schedule...) - Diet and Activity Activity: increase activity as tolerated Diet: advance to your usual diet Interval History: Ms. Bacon is a 76 year old female with history of parts displease defibrillation currently on metoprolol 50 mg twice a day and xarelto stroke prophylaxis presented emergency today with the main complain of palpitations and shortness of breath. Patient mentioned that since she started noticing palpitations which she describes as rapid and irregular. She was noting that she would get short of breath with any minimal exertion. She has minimal lower extremity swelling, denies orthopnea or paroxysmal nocturnal dyspnea. She was found to be major fibrillation with rapid ventricular response analysis emergency room heart rate was around 180s. She was started on Cardizem drip with improvement over rate to 110-120. She had problems with weight control for her atrial fibrillation before. She had to be transferred to [place] last year or electrophysiology evaluation. She does not recall that she had any ablation procedure. She denies any chest pain. She had an angiogram in 2009 showing mild coronary artery disease. She denies any recent febrile illness. No fever chills cough expectoration or urinary symptoms. Hospital course: Ms. Bacon is a 76 year old female was admitted as a A. fib with a rapid ventricular response. Patient was placed on Cardizem drip, cardiology consult has been called. After treatment, patient's heart rate decreased to 60-80 level. Cardizem drip has been stopped and switched to by mouth Cardizem. Patient has no chest pain, shortness of breath, or palpitation. Vital signs stable. Will discharge patient home with by mouth Cardizem, dose per cardiology recommendation. Patient will follow-up with her cardiology as outpatient. I saw and examined the patient today. Patient is awake alert, oriented 3. Denies chest pain or shortness of breath. Vital signs stable. Will discharge patient home today. - Time Spent with Patient Total time spent providing and/or coordinating discharge services: 25 min Less than 30 minutes - Constitutional Vitals: Temp Pulse Resp BP Pulse Ox 97.7 F 69 17 134/78 93 11/02/16 11:50 11/02/16 11:50 11/02/16 11:50 11/02/16 11:50 11/02/16 11:50 General appearance: Present: A&O X 3, no acute distress, answers questions appropriately - Head Head exam: Present: atraumatic, normocephalic - Eye Eye exam: Present: PERRL, conjuntiva pink, sclera anicteric Pupils: Present: PERRL - Neck Neck exam general surgery: Present: supple, trachea midline. Absent: lymphadenopathy - Respiratory Respiratory exam: Present: CTAB. Absent: accessory muscle use, rales, rhonchi, wheezes - Cardiovascular Cardiovascular exam: Present: irregular rhythm, +S1, +S2. Absent: diastolic murmur, gallop, rubs, systolic murmur - GI/Abdominal GI/Abdominal exam: Present: normal bowel sounds, soft, no peritoneal signs. Absent: distended, tenderness - Extremities Exam Extremities exam: Present: warm, radial pulses palpable and symetrical. Absent : calf tenderness, cyanotic, pedal edema - Neurological Exam Neurological exam: Present: CN II-XII intact, oriented X3, no focal deficits. Absent: pronater drift, facial droop, speech deficit - Skin Skin exam: Present: dry, intact
[2016-11-03 20:30] LABS: CK-BB (CK isoenzymes) 0 % (0-0); CK-MB (CK isoenzymes) 0 % (0-4); CK-MM (CK-isoenzymes) 100 % (96-100)
[2016-11-03 20:30] LABS: CK-MB (CK isoenzymes) 0 % (0-4); CK-MM (CK-isoenzymes) 100 % (96-100)
[2016-11-04 10:54] LABS: CK Total (Ck Isoenzymes) 75 U/L (20-180)
[2016-11-04 10:56] LABS: CK Total (Ck Isoenzymes) 63 U/L (20-180); CK-BB (CK isoenzymes) 0 % (0-0)
== END 2016-11-02 14:10 | disposition home or self-care (01) ==
LOC: EMEROO 12:36 → 2ANU 12:36 → SUATTDRO 17:01
PROVIDERS: ADMIT Internal Medicine; ATTEND Internal Medicine

== ENCOUNTER 2016-11-16 13:37 | Inpatient (IN) ==
[2016-11-16] MEDS ORDERED: *HR* Metoprolol 5 MG/5 ML VIAL IVP ONE ×2 (14:18→16:42)
--- NOTE | 2016-11-16 14:59 | Emergency Department Note ---
Disposition Clinical Impression: Atrial fibrillation with RVR CHF exacerbation Qualifiers: Congestive heart failure type: unspecified congestive heart failure type Qualified Code(s): I50.9 - Heart failure, unspecified Dyspnea Qualifiers: Dyspnea type: unspecified Qualified Code(s): R06.00 - Dyspnea, unspecified Disposition: Admitted As Inpatient Condition: Fair General Adult HPI - General Chief complaint: ED Chest Pain Stated complaint: CP/POLA Time Seen by Provider: 11/16/16 14:02 Source: patient Limitations: no limitations Nursing Notes Reviewed: Yes Vital Signs Reviewed: Yes - History of Present Illness HPI Narrative: 76-year-old female who reports approximately 3 days of dyspnea. She also is experiencing palpitations. She has a history of A. fib with RVR. She does feel palpitations. She denies worsening lower extremity edema. She has not had a fever. She did develop a cough over the last 24 hours which is mildly productive. Dyspnea worse with exertion. Radiation: non-radiation Pain Severity: moderate Pain Scale: 3 Consistency: constant Improves with: nothing Worsens with: movement Associated symptoms: Reports: denies other symptoms - Related Data Home Medications Medication Instructions Recorded Confirmed Aspirin [Adult Low Dose Aspirin EC] 81 mg PO DAILY 07/24/15 11/16/16 Gabapentin [Neurontin] 300 mg PO TID 07/24/15 11/16/16 Niacin [Niaspan] 500 mg PO HS 07/24/15 11/16/16 Furosemide [Lasix] 40 mg PO BID 08/11/15 11/16/16 Nystatin Cream [Mycostatin Cream] 1 appl TP TID PRN 10/31/16 11/16/16 Oxygen 2 l NS CONT 10/31/16 11/16/16 Potassium Chloride [K-Tab ER] 20 meq PO BID 10/31/16 11/16/16 Levalbuterol Neb [Xopenex Neb] 0.63 mg IH BID 11/16/16 11/16/16 Previous Rx's Medication Instructions Recorded Rivaroxaban [Xarelto] 20 mg PO DAILY #30 tablet 07/27/15 Metoprolol [Lopressor] 50 mg PO BID tablet 08/06/15 Multivit/Ca/Min/Fe/FA [Thera M 1 tab PO DAILY tablet 08/06/15 Plus] Diltiazem CD (24hr) [Cardizem CD] 240 mg PO DAILY #30 cap.er.24h 11/02/16 Allergies Allergy/AdvReac Type Severity Reaction Status Date / Time Cyclobenzaprine AdvReac Hallucinati Verified 07/24/15 19:41 [From Flexeril] ng fenofibrate [From Tricor] AdvReac Muscle Pain Verified 07/24/15 19:41 Yjmyhul-Rff-Lfp Reductase AdvReac Muscle Pain Verified 07/24/15 17:51 Inhibitor [Statins] tramadol [From Ultram] AdvReac Itching Verified 07/24/15 19:41 All systems ED: reviewed and negative except as stated. Constitutional: Denies: fever Eyes: Denies: vision change ENT ED: Denies: throat pain Cardiovascular: Reports: palpitations. Denies: chest pain Respiratory: Reports: cough, dyspnea Gastrointestinal: Denies: abdominal pain, nausea, vomiting Genitourinary: Denies: dysuria Musculoskeletal: Denies: back pain Integumentary: Denies: rash Neurological: Denies: headache Endocrine: Reports: fatigue Past Medical History - Past Medical History Medical history: Reports: arthritis, asthma, atrial fibrillation, CHF, coronary artery disease, hyperlipidemia, hypertension, myocardial infarction, osteoporosis, pulmonary embolus, SVT, syncope, valvular heart disease Surgical history: Reports: cataract, cholecystectomy, knee replacement, other Psychiatric history: Reports: anxiety, depression - Social History Smoking Status: Never smoker Smokeless Tobacco Status: No Alcohol use: Reports: none Drug use: Reports: none Physical Exam - General Limitations: no limitations General appearance: alert - Head Head exam: atraumatic - Eye Eye exam: Present: normal appearance, PERRL, EOMI - ENT ENT exam: normal exam, normal oropharynx - Neck Neck exam: Present: normal inspection - Chest Chest inspection: Present: normal inspection. Absent: symmetric chest wall rise - Respiratory Respiratory exam: Present: other (Diminished in the bases). Absent: respiratory distress, accessory muscle use, prolonged expiratory phase - Cardiovascular Cardiovascular exam: Present: tachycardia, irregular rhythm - Abdominal Exam Abdominal exam: Present: soft, Non-Tender - Extremities Exam Extremities exam: Present: normal inspection - Back Exam Back exam: Present: normal inspection - Neurological Exam Neurological exam: Present: alert, oriented X3 - Psychiatric Psychiatric exam: Present: normal affect, normal mood - Skin Skin exam: Present: warm, dry Course Course Narrative: 76-year-old female who has A. fib. Her rate is up to 140 while I am in the room and drops down to 80. Her EKG rate is 100. There is some lateral ST depression. Her dyspnea may be due secondary to CHF or A. fib RVR. Her blood pressure was 110 systolic so I need to be careful with controlling her rate. I will go ahead and give her 2.5 mg of metoprolol and see if he has any effect. In addition we will do a CTA of her chest to rule out pulmonary embolism as she is hypoxic. Her normal oxygen requirement at home is 2 L and she is currently requiring 5 L to stay at 92%. CTA is negative aside from pleural effusion. I believe that the lateral ST depressions likely rate induced. Due to her EKG changes and hypoxia from baseline she will be admitted for a CHF exacerbation. After a total of 5mg of lopressor her HR is approx 90-100 Vital Signs Temperature 97.9 F 11/16/16 13:46 Pulse Rate 101 11/16/16 13:46 Respiratory Rate 22 11/16/16 13:46 Blood Pressure 141/92 11/16/16 13:46 O2 Sat by Pulse Oximetry 82 11/16/16 13:46 Temperature 97.9 F 11/16/16 13:46 Pulse Rate 80 11/16/16 17:57 Respiratory Rate 26 11/16/16 18:14 Blood Pressure 129/97 11/16/16 18:14 O2 Sat by Pulse Oximetry 91 11/16/16 17:57 Oxygen Delivery Oxygen Delivery Nasal Cannula Medical Decision Making - Medical Records Medical records reviewed: Yes I reviewed the patient's medical records. - Lab Data Lab results reviewed: Yes I reviewed the patient's lab results. Result diagrams: 11/16/16 14:57 11/16/16 14:57 Lab Results 11/16/16 11/16/16 11/16/16 Range/Units 14:57 14:57 14:57 WBC 7.3 (4.3-11.1) K/mcL RBC 4.40 (3.82-4.97) M/mcL Hgb 13.7 (11.5-15.4) g/dL Hct 43.1 (35.3-44.9) % MCV 98.0 (83.0-100.0) fL MCH 31.1 (28.0-33.3) pg MCHC 31.8 (31.6-35.5) g/dL RDW 15.3 H (11.5-14.5) % Plt Count 220 (140-400) K/mcL MPV 10.2 (9.4-12.4) fL Immature Gran % 0.3 (0-4) % Seg Neutrophils % 78.3 % Lymphocytes % 10.5 % Monocytes % 8.7 % Eosinophils % 1.9 % Basophils % 0.3 % Neutrophils # 5.7 (1.6-8.9) K/mcL Lymphocytes # 0.8 (0.6-4.6) K/mcL Monocytes # 0.6 (0.0-1.3) K/mcL Eosinophils # 0.1 (0.0-0.6) K/mcL Basophils # 0.0 (0.0-0.2) K/mcL PT 26.8 H (9.4-12.1) Seconds INR 2.4 APTT 41.2 H (26.0-36.0) Seconds VBG pH (7.32-7.42) pH Units VBG pCO2 (41-51) mmHg VBG pO2 (25-40) mmHg VBG HCO3 (21-27) mEq/L Sodium (136-145) mEq/L Potassium (3.5-4.5) mEq/L Chloride (98-109) mEq/L Carbon Dioxide (19-29) mEq/L BUN (7-20) mg/dL Creatinine (0.57-1.11) mg/dL Est GFR ( Amer) (> 60) Est GFR (Non-Af Amer) (> 60) BUN/Creatinine Ratio (6-26) Glucose (70-99) mg/dL Calculated Osmolality (280-300) Calcium (8.6-10.8) mg/dL Troponin I (0-0.03) ng/mL B-Natriuretic Peptide 871 H (0-100) pg/mL 11/16/16 11/16/16 11/16/16 Range/Units 14:57 14:57 14:57 WBC (4.3-11.1) K/mcL RBC (3.82-4.97) M/mcL Hgb (11.5-15.4) g/dL Hct (35.3-44.9) % MCV (83.0-100.0) fL MCH (28.0-33.3) pg MCHC (31.6-35.5) g/dL RDW (11.5-14.5) % Plt Count (140-400) K/mcL MPV (9.4-12.4) fL Immature Gran % (0-4) % Seg Neutrophils % % Lymphocytes % % Monocytes % % Eosinophils % % Basophils % % Neutrophils # (1.6-8.9) K/mcL Lymphocytes # (0.6-4.6) K/mcL Monocytes # (0.0-1.3) K/mcL Eosinophils # (0.0-0.6) K/mcL Basophils # (0.0-0.2) K/mcL PT (9.4-12.1) Seconds INR APTT (26.0-36.0) Seconds VBG pH 7.39 (7.32-7.42) pH Units VBG pCO2 49 (41-51) mmHg VBG pO2 75 H (25-40) mmHg VBG HCO3 29.7 H (21-27) mEq/L Sodium 143 (136-145) mEq/L Potassium 4.4 (3.5-4.5) mEq/L Chloride 105 (98-109) mEq/L Carbon Dioxide 31 H (19-29) mEq/L BUN 17 (7-20) mg/dL Creatinine 1.13 H (0.57-1.11) mg/dL Est GFR ( Amer) 57 L (> 60) Est GFR (Non-Af Amer) 47 L (> 60) BUN/Creatinine Ratio 15 (6-26) Glucose 144 H (70-99) mg/dL Calculated Osmolality 300 (280-300) Calcium 10.1 (8.6-10.8) mg/dL Troponin I 0.02 (0-0.03) ng/mL B-Natriuretic Peptide (0-100) pg/mL - Radiology Data Radiology results reviewed: Yes I reviewed the patient's radiology results. - EKG Data EKG #1 EKG attestation: Yes I reviewed and interpreted this EKG. Rate: tachycardia Rhythm: A.Fib [place]/QRS: normal ST segment depression in: II, v5, v6 Interpretation: other (Afib RVR with lateral depression) Critical Care Time Critical Care Time: Yes Total Critical Care Time: 31 Attestation: This is a female patient presenting with acute hypoxia and dyspnea requiring intervention with both o2 as well as diuresis. She remains in critical condition with high potential for life threatening deterioration. Critical care time was excluding billable procedures. Attestation Statement - Attestation Attestation: I agree with the residents plan of care. In summary this is a 76-year-old female who presents with dyspnea, tachycardia, afib with RVR. Known CHF. CT scan of the chest was preformed. CT scan of the chest was performed to rule out pulmonary embolism. Ultimately this was negative but she does have evidence of heart failure. She was given both nitro paste as well as IV lasix. Plans to admit for further evaluation of worsening heart failure. Her HR was controlled with beta delano. Discussed case with hospitalist team.
[2016-11-16 15:03] LABS: Basophils % 0.3 %; Eosinophils # 0.1 K/mcL (0.0-0.6); Eosinophils % 1.9 %; Hematocrit 43.1 % (35.3-44.9); Hemoglobin 13.7 g/dL (11.5-15.4); Immature Granulocytes % 0.3 % (0-4); Lymphocytes # 0.8 K/mcL (0.6-4.6); Lymphocytes % 10.5 %; Mean Corpuscular HGB Conc 31.8 g/dL (31.6-35.5); Mean Corpuscular Hemoglobin 31.1 pg (28.0-33.3); Mean Platelet Volume 10.2 fL (9.4-12.4); Monocytes # 0.6 K/mcL (0.0-1.3); Monocytes % 8.7 %; Neutrophils # 5.7 K/mcL (1.6-8.9); Platelet Count 220 K/mcL (140-400); Red Cell Distribution Width 15.3 % (11.5-14.5); Segmented Neutrophils % 78.3 %
[2016-11-16 15:12] LABS: VBG HCO3 29.7 mEq/L (21-27); VBG PH 7.39 pH Units (7.32-7.42)
[2016-11-16 15:14] LABS: INR 2.4; Prothrombin Time 26.8 Seconds (9.4-12.1)
[2016-11-16 15:17] LABS: Activated Partial Thrombo Time 41.2 Seconds (26.0-36.0)
[2016-11-16 15:18] LABS: Calcium 10.1 mg/dL (8.6-10.8); Potassium 4.4 mEq/L (3.5-4.5)
--- NOTE | 2016-11-16 16:25 | Electrocardiograph Report ---
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
[2016-11-16] MEDS ORDERED: Nitroglycerin 1 INCH/GM PACKET TP ONE (16:40)
[2016-11-16] MEDS ORDERED: Furosemide 40 MG/4 ML VIAL IVP ONE (16:42)
[2016-11-16] MEDS ORDERED: Acetaminophen 325 MG TABLET PO PRN (19:40)
[2016-11-16] MEDS ORDERED: Naloxone 0.4 MG/ML INJ IVP PRN (19:40)
--- NOTE | 2016-11-16 19:47 | Internal Med History&Physical ---
<Gonzalez,Fadia J - Last Filed: 11/16/16 19:44> Date of Encounter: 11/16/16 Time of Encounter: 19:45 Assessment and Plan (1) Atrial fibrillation with RVR Current visit: No Status: Acute Per history. Was recently hospitalized 10/2016 for A. fib with RVR. Require Cardizem drip at that time. Has been on amiodarone in the past but stopped due to pulmonary toxicity. TTE 10/2016 with severely left dilated atrium. Evaluated by cardiology last admission who recommended initiating antiarrhythmic therapy however patient wanted to attempt rate control strategy first. Now with worsening shortness of breath, EKG arrival showed A. fib with RVR heart rate 110s-120s. Heart rate now in the 80s and 90s. Continue home BB, CCB, xarelto. Cardiology consulted (will need to be called in the morning). (2) Congestive heart failure (CHF) Current visit: No Status: Acute TTE 10/2016 with EF 50% and diastolic dysfunction secondary to A. fib. Appears clinically overloaded on exam with crackles in lower extremity edema. Received IV Lasix in the ED with improvement in breathing. Continue IV Lasix, I's and O' s, daily weights. Cardiology consult and (will need to be called in the morning ). Qualifiers: Congestive heart failure type: combined Congestive heart failure chronicity : acute Qualified Code(s): I50.41 - Acute combined systolic (congestive) and diastolic (congestive) heart failure (3) LARRY (acute kidney injury) Current visit: Yes Status: Acute Cr 1.13; Baseline appears to be normal. Possibly cardiorenal syndrome. Holding on fluids she is clinically fluid Monitor repeat BMP with IV diuresis. (4) DVT prophylaxis Current visit: No Status: Acute Xarelto Internal Medicine - H&P: HPI Chief complaint: Shortness of breath Admitted From: Home Plans for Post Hospital Care: Home History of present illness: Ms. Bacon is a 76 year old female past medical history A. fib on several toe CHF who presented to [facility] on 11/16/2016 with complaints of worsening shortness of breath. She was found to be in A. fib with RVR. Given IV beta delano in the ED for rate control and was admitted for further workup and treatment and cardiac evaluation. Information obtained from chart review and patient report. Patient reports shortness of breath has been worsening over the past several days says she has to stop and catch her breath. Nothing makes breathing better or worse. She called her senior program analyst who advised her to come to the ER not when she was found to be in A. fib with RVR. She reports taking home Lasix as prescribed. Has intermittent nonproductive cough denies chest pain. Has lower extremity edema. No abdominal pain and nausea vomiting or diarrhea. Past Med Surg Social Fam HX - Past Medical History Medical history: arthritis, asthma, atrial fibrillation, CHF, coronary artery disease, hyperlipidemia, hypertension, myocardial infarction, osteoporosis, pulmonary embolus, SVT, syncope, valvular heart disease Psychiatric history: anxiety, depression - Past Surgical History Surgical History: cataract, cholecystectomy, knee replacement, other - Social History Smoking Status: Never smoker Smokeless Tobacco Status: No Alcohol use: none Drug use: none - Family History Son Family Member Ethnicity: Non- Living Status: Still Living Hx Family Cardiac Disorders: Yes (CT, AFIB) Hx Family Endocrine Disorder: Yes (DM) Mother Living Status: Hx Family Cardiac Disorders: Yes (CHF) Internal Medicine - H&P: Meds Aspirin [Adult Low Dose Aspirin EC] 81 mg PO DAILY 07/24/15 [History] Gabapentin [Neurontin] 300 mg PO TID 07/24/15 [History] Niacin [Niaspan] 500 mg PO HS 07/24/15 [History] Rivaroxaban [Xarelto] 20 mg PO DAILY #30 tablet 07/27/15 [Rx] Metoprolol [Lopressor] 50 mg PO BID tablet 08/06/15 [Rx] Multivit/Ca/Min/Fe/FA [Thera M Plus] 1 tab PO DAILY tablet 08/06/15 [Rx] Furosemide [Lasix] 40 mg PO BID 08/11/15 [History] Nystatin Cream [Mycostatin Cream] 1 appl TP TID PRN 10/31/16 [History] Oxygen 2 l NS CONT 10/31/16 [History] Potassium Chloride [K-Tab ER] 20 meq PO BID 10/31/16 [History] Diltiazem CD (24hr) [Cardizem CD] 240 mg PO DAILY #30 cap.er.24h 11/02/16 [Rx] Levalbuterol Neb [Xopenex Neb] 0.63 mg IH BID 11/16/16 [History] Allergies Cyclobenzaprine [From Flexeril] Adverse Reaction (Verified 07/24/15 19:41) Hallucinating fenofibrate [From Tricor] Adverse Reaction (Verified 07/24/15 19:41) Muscle Pain [place]ai-Gif-Owt Reductase Inhibitor [Statins] Adverse Reaction (Verified 17:51) Muscle Pain tramadol [From Ultram] Adverse Reaction (Verified 07/24/15 19:41) Itching All Systems PM: A 10-system review of systems was performed and is negative for pertinent findings except as documented above in the HPI. - Constitutional Constitutional: no chills, no fever(s), no night sweats - EENT Eyes: no change in vision, no discharge, no pain, no photophobia Ears: no ear discharge, no ear pain, no tinnitus Nose, mouth and throat: no dysphagia, no nasal discharge, no neck pain, no sore throat - Cardiovascular Cardiovascular ROS IM: dyspnea, dyspnea on exertion, edema, palpitations, no chest pain, no diaphoresis, no lightheadedness, no syncope - Respiratory Respiratory: dyspnea, dyspnea on exertion, no cough, no wheezing, no excessive phlegm production - Gastrointestinal Gastrointestinal: no abdominal pain, no diarrhea, no hematemesis, no hematochezia, no melena, no nausea, no vomiting - Genitourinary Genitourinary: no change in urinary stream, no dysuria, no flank pain, no hematuria - Musculoskeletal Musculoskeletal ROS IM: no numbness, no tingling - Integumentary Integumentary IM: no rash, no unusual bruising - Neurological Neurological ROS: no confusion, no convulsions, no focal weakness, no numbness, no tingling, no tremor(s) - Hematologic/Lymphatic Hematologic/Lymphatic: no easy bruising - Constitutional Vitals: Temp Pulse Resp BP Pulse Ox 97.9 F 80 26 129/97 91 11/16/16 13:46 11/16/16 17:57 11/16/16 18:14 11/16/16 18:14 11/16/16 17:57 General appearance: Present: A&O X 3 - Head Head exam: Present: atraumatic, normocephalic - Eye Eye exam: Present: PERRL, conjuntiva pink, sclera anicteric Pupils: Present: PERRL - Neck Neck exam general surgery: Present: supple, trachea midline. Absent: lymphadenopathy - Respiratory Respiratory exam: Present: accessory muscle use, rales. Absent: rhonchi, wheezes - Cardiovascular Cardiovascular exam: Present: irregular rhythm, +S1, +S2. Absent: diastolic murmur, gallop, rubs, systolic murmur - GI/Abdominal GI/Abdominal exam: Present: normal bowel sounds, soft, no peritoneal signs. Absent: distended, tenderness - Extremities Exam Extremities exam: Present: pedal edema, warm, radial pulses palpable and symetrical. Absent: calf tenderness, cyanotic - Neurological Exam Neurological exam: Present: CN II-XII intact, oriented X3, no focal deficits. Absent: pronater drift, facial droop, speech deficit - Skin Skin exam: Present: dry, intact Internal Med - H&P Results - Labs CBC & Chem 7: 11/16/16 14:57 11/16/16 14:57 <Fabián Bennett - Last Filed: 11/17/16 07:22> Date of Encounter: 11/17/16 Internal Medicine - H&P: HPI History of present illness: Ms. Bacon is a 76 year old female All Systems PM: A 10-system review of systems was performed and is negative for pertinent findings except as documented above in the HPI. - Constitutional Vitals: Temp Pulse Resp BP Pulse Ox 98.7 F 112 15 104/88 90 11/17/16 05:29 11/17/16 05:29 11/17/16 05:29 11/17/16 05:29 11/17/16 05:29 Internal Med - H&P Results - Labs CBC & Chem 7: 11/17/16 05:21 11/17/16 05:21 Labs: Short CBC 11/17/16 Range/Units 05:21 WBC 6.0 (4.3-11.1) K/mcL Hgb 12.7 (11.5-15.4) g/dL Hct 39.6 (35.3-44.9) % Plt Count 179 (140-400) K/mcL Neutrophils # 4.5 (1.6-8.9) K/mcL BMP 11/17/16 05:21 Sodium 144 Potassium 3.5 Chloride 105 Carbon Dioxide 30 H BUN 15 Creatinine 0.88 Glucose 114 H Calcium 9.3 Cardiac Enzymes 11/16/16 Range/Units 20:19 Troponin I 0.01 (0-0.03) ng/mL Liver Function 11/17/16 Range/Units 05:21 Total Bilirubin 1.3 H (0.2-1.2) mg/dL AST 20 (5-34) Units/L ALT 25 (0-55) Units/L Alkaline Phosphatase 91 (38-126) Units/L Albumin 3.3 L (3.5-5.0) g/dL - Attending Attestation I examined this patient and my medical decision-making was reviewed with the Resident Physician. I agree with the documented findings, disposition and treatment plan as described
[2016-11-16] MEDS: Gabapentin 300 MG CAPSULE PO SCH (20:22)
[2016-11-16] MEDS: Furosemide 40 MG/4 ML VIAL IVP SCH (20:22)
[2016-11-17] MEDS: Ipratropium/Albuterol Neb 3 ML IH SCH ×4 (00:44→11:31)
[2016-11-17 05:46] LABS: Basophils % 0.2 %; Eosinophils # 0.2 K/mcL (0.0-0.6); Eosinophils % 3.7 %; Hematocrit 39.6 % (35.3-44.9); Hemoglobin 12.7 g/dL (11.5-15.4); Immature Granulocytes % 0.3 % (0-4); Lymphocytes # 0.8 K/mcL (0.6-4.6); Lymphocytes % 12.8 %; Mean Corpuscular HGB Conc 32.1 g/dL (31.6-35.5); Mean Corpuscular Hemoglobin 31.4 pg (28.0-33.3); Mean Corpuscular Volume 97.8 fL (83.0-100.0); Monocytes # 0.4 K/mcL (0.0-1.3); Monocytes % 7.2 %; Neutrophils # 4.5 K/mcL (1.6-8.9); Platelet Count 179 K/mcL (140-400); Red Blood Count 4.05 M/mcL (3.82-4.97); Red Cell Distribution Width 15.2 % (11.5-14.5); Segmented Neutrophils % 75.8 %
[2016-11-17 06:00] LABS: Alanine Aminotransferase 25 Units/L (0-55); Albumin 3.3 g/dL (3.5-5.0); Albumin/Globulin Ratio 1.2 (1.1-2.2); Alkaline Phosphatase 91 Units/L (38-126); Aspartate Amino Transferase 20 Units/L (5-34); BUN/Creatinine Ratio 17 (6-26); Bilirubin,Total 1.3 mg/dL (0.2-1.2); Blood Urea Nitrogen 15 mg/dL (7-20); Calcium 9.3 mg/dL (8.6-10.8); Carbon Dioxide 30 mEq/L (19-29); Chloride 105 mEq/L (98-109); Globulin 2.8 g/dL (2.4-3.5); Glucose 114 mg/dL (70-99); Osmolality,Calculated 300 (280-300); Potassium 3.5 mEq/L (3.5-4.5); Sodium 144 mEq/L (136-145); Total Protein 6.1 g/dL (6.0-8.3); eGFR For African Americans > 60 (> 60); eGFR For Non-African Americans > 60 (> 60)
[2016-11-17] MEDS: Furosemide 40 MG/4 ML VIAL IVP SCH ×2 (08:28→17:28)
[2016-11-17] MEDS: Aspirin Enteric Coated 81 MG Tablet PO SCH (08:28)
[2016-11-17] MEDS: Gabapentin 300 MG CAPSULE PO SCH ×3 (08:28→20:25)
[2016-11-17] MEDS ORDERED: *HR* Rivaroxaban 10 MG TABLET PO SCH (09:00)
[2016-11-17] MEDS ORDERED: Diltiazem CD (24hr) 240 MG CAPSULE PO SCH (09:00)
[2016-11-17 11:45] LABS: Magnesium 2.1 mg/dL (1.6-2.6)
--- NOTE | 2016-11-17 12:09 | Cardiology Consult Note ---
Date of Encounter: 11/17/16 Time of Encounter: 11:50 Assessment and Plan (1) Atrial fibrillation with RVR Current Visit: Yes Status: Acute Known hx of Paroxysmal A-Fib, anticoagulated on Xarelto. Dyspnea/palpitations started 3-4 days ago. Previously on amiodarone, stopped due to pulmonary toxicity. Pt is on Lopressor 50mg BID and cardizem 240 mg daily currently and at home. Echo EF 50%, moderate valvular disease, severely dilated left atrium. [facility] 04/2010 minimal CAD. HR 110's-130's at bedside, on cardizem gtt at 10 mg/hr--continue until HR controlled. ECG upon admission: Afib HR 100 QRS 77 QT/QTc 350,407 ms. Recommend starting antiarrhythmic as inpatient--discussed with Dr. Daquan Perez, will start sotalol 80 mg BID. Monitor renal function closely. Daily ECG's to assess QT/QTc. Has been on Xarelto 20 mg daily for 30+ days without missed dose. Possible DCCV after 5th dose if does not convert to NSR. Patient/family are agreeable to plan. (2) Congestive heart failure Current Visit: Yes Status: Chronic Dypsnea likely secondary to RVR. Clinically appears euvolemic upon exam, CTA negative for acute process. Continue home medications. Qualifiers: Congestive heart failure type: diastolic Congestive heart failure chronicity: chronic Qualified Code(s): I50.32 - Chronic diastolic (congestive ) heart failure Discussion w patient/family: The assessment and plan as outlined above was discussed with the patient and/or family members who expressed understanding and agreement. All questions were answered. Thank you for involving us in the care of your patient. Please call with any questions. History of Present Illness Consult date: 11/17/16 Requesting physician: Fabián Bennett Consult reason: Afib with RVR Chief complaint: Shortness of breath, palpitations History of present illness: Ms. Bacon is a 76 year old female with PMHx significant for PAF, dCHF, and COPD who presented to [facility] with 3 day history of worsening shortness of breath, palpitations, and weakness. Recent hospitalization with similar symptoms. Associated symptoms include elevated blood pressure. Outpatient plan for antiarrhythmic therapy--had appt next week. CTA negative for acute abnormality. She is agreeable to start antiarrhythmic therapy this admission if appropriate. Prior CV testing: TTE 11/01/16: LVEF 50%, mild cLVH, severely dilated LA, moderately dilated RA , moderate AR, moderate MS, moderate MR, mild TR TTE 07/25/15: LVEF 55-60%. Mild concentric LVH. Mild to moderately dilated left atrium. Mild aortic regurgitation. Moderate mitral regurgitation. No evidence of pulmonary hypertension identified. LAINA-guided cardioversion 07/24/15: LVEF 55%. Mild concentric LVH. Moderate to severely dilated left atrium. No left atrial appendage thrombus. PFO noted with predominant [id number] shunt. Mild aortic regurgitation. Mild to moderate mitral regurgitation. Mild tricuspid regurgitation. Successful synchronized cardioversion utilizing 150 J. [facility] 04/26/10: Minimal CAD. Past Med Surg Social Fam HX - Past Medical History Medical history: arthritis, asthma, atrial fibrillation, CHF (diastolic, chronic ), hyperlipidemia, hypertension, myocardial infarction, osteoporosis, pulmonary embolus, syncope, valvular heart disease Psychiatric history: anxiety, depression - Past Surgical History Surgical History: cataract, cholecystectomy, knee replacement, other - Social History Smoking Status: Never smoker Smokeless Tobacco Status: No Alcohol use: none Drug use: none - Family History Son Family Member Ethnicity: Non- Living Status: Still Living Hx Family Cardiac Disorders: Yes (OH, AFIB) Hx Family Endocrine Disorder: Yes (DM) Mother Living Status: Hx Family Cardiac Disorders: Yes (CHF) Medications and Allergies Aspirin [Adult Low Dose Aspirin EC] 81 mg PO DAILY 07/24/15 [History] Gabapentin [Neurontin] 300 mg PO TID 07/24/15 [History] Niacin [Niaspan] 500 mg PO HS 07/24/15 [History] Rivaroxaban [Xarelto] 20 mg PO DAILY #30 tablet 07/27/15 [Rx] Metoprolol [Lopressor] 50 mg PO BID tablet 08/06/15 [Rx] Multivit/Ca/Min/Fe/FA [Thera M Plus] 1 tab PO DAILY tablet 08/06/15 [Rx] Furosemide [Lasix] 40 mg PO BID 08/11/15 [History] Nystatin Cream [Mycostatin Cream] 1 appl TP TID PRN 10/31/16 [History] Oxygen 2 l NS CONT 10/31/16 [History] Potassium Chloride [K-Tab ER] 20 meq PO BID 10/31/16 [History] Diltiazem CD (24hr) [Cardizem CD] 240 mg PO DAILY #30 cap.er.24h 11/02/16 [Rx] Levalbuterol Neb [Xopenex Neb] 0.63 mg IH BID 11/16/16 [History] Allergies amiodarone Adverse Reaction (Verified 11/17/16 12:20) pulmonary toxicity Cyclobenzaprine [From Flexeril] Adverse Reaction (Verified 07/24/15 19:41) Hallucinating fenofibrate [From Tricor] Adverse Reaction (Verified 07/24/15 19:41) Muscle Pain [id number] Reductase Inhibitor [Statins] Adverse Reaction (Verified 17:51) Muscle Pain tramadol [From Ultram] Adverse Reaction (Verified 07/24/15 19:41) Itching All Systems Review: A 10-system review of systems was performed and is negative for pertinent findings except as documented above in the HPI. - Cardiovascular Cardiovascular: as per HPI Physical Examination Vital Signs, Last 4 Hours Resp Pulse Ox 11/17/16 11:32 15 92 11/17/16 08:36 92 General: Conversant HEENT: Atraumatic, Normocephaly Neck: No JVD Cardiac: Other (irregularly irregular) Lungs: Normal Breath Sounds Neuro: Alert and responsive Abdomen: Soft Skin: No rashes noted on visualized skin Musculoskeletal: No Chest Wall Tenderness Extremities: No Edema, Normal Pulses Results 11/17/16 05:21 11/17/16 05:21 Lab Results 11/16/16 11/17/16 11/17/16 20:19 05:21 05:21 WBC 6.0 Hgb 12.7 Hct 39.6 Plt Count 179 Sodium 144 Potassium 3.5 Chloride 105 Carbon Dioxide 30 H BUN 15 Creatinine 0.88 Glucose 114 H Calcium 9.3 Magnesium 2.1 Total Bilirubin 1.3 H AST 20 ALT 25 Alkaline Phosphatase 91 Troponin I 0.01 Active Medications Acetaminophen (Tylenol) 650 mg PO Q6HR PRN PRN Reason: Mild Pain (1-3) Stop: 05/18/17 19:41 Albuterol/Ipratropium (Duoneb) 3 ml IH [id number] LENIN PRN Reason: Protocol Stop: 05/19/17 00:01 Last Admin: 11/17/16 11:31 Dose: 3 ml Aspirin (Aspirin Ec) 81 mg PO DAILY [facility] Stop: 05/19/17 09:01 Last Admin: 11/17/16 08:28 Dose: 81 mg Furosemide (Lasix) 40 mg IVP BIDDIURETIC [facility] Stop: 05/18/17 20:01 Last Admin: 11/17/16 08:28 Dose: 40 mg Gabapentin (Neurontin) 300 mg PO TID [facility] Stop: 05/18/17 21:01 Last Admin: 11/17/16 08:28 Dose: 300 mg Diltiazem HCl 125 mg/ Dextrose 125 mls @ 10 mls/hr IVC .[id number] LENIN; 10 MG/HR PRN Reason: Protocol Stop: 05/19/17 11:01 Last Admin: 11/17/16 11:33 Dose: 10 mg/hr, 10 mls/hr Metoprolol Tartrate (Lopressor) 50 mg PO BID [facility] Stop: 05/18/17 21:01 Last Admin: 11/17/16 08:28 Dose: 50 mg Naloxone HCl (Narcan) 0.4 mg IVP Q2MIN PRN PRN Reason: Opioid Reversal Stop: 05/18/17 19:41 Potassium Chloride (Potassium Chloride) 20 meq PO BID [facility] Stop: 05/19/17 11:01 Last Admin: 11/17/16 11:34 Dose: 20 meq Rivaroxaban (Xarelto) 20 mg PO DAILY [facility] Stop: 05/19/17 09:01 Last Admin: 11/17/16 08:28 Dose: 20 mg - Imaging and Cardiology Echo: report reviewed Cardiac cath: report reviewed Other Results: 12 hour tele: avg PR=280 afib. - EKG Interpretation EKG results cardiology: personally reviewed Consult Discharge Plan - Plan Referrals: Mello Mc MD [Primary Care Provider] - 11/28/16 11:00 am
[2016-11-17] MEDS ORDERED: Levalbuterol Neb 1.25 MG/3 ML IH PRN (15:08)
--- NOTE | 2016-11-17 16:52 | Internal Med Progress Note ---
Date of Encounter: 11/17/16 Time of Encounter: 10:15 - Assessment and plan (1) Atrial fibrillation with RVR Current Visit: Yes Status: Acute Assessment and plan: Remains uncontrolled and has been placed on IV Cardizem drip. Cardiology consulted. We will follow recommendations. On anticoagulation consulted. High risk for complications. (2) LARRY (acute kidney injury) Current Visit: Yes Status: Resolved Assessment and plan: Renal Function is back to baseline (3) Congestive heart failure (CHF) Current Visit: Yes Status: Acute Assessment and plan: On IV Lasix. Has had negative 750 ml fluid balance. We will continue Lasix. Qualifiers: Congestive heart failure type: combined Congestive heart failure chronicity : acute Qualified Code(s): I50.41 - Acute combined systolic (congestive) and diastolic (congestive) heart failure (4) Asthma Current Visit: Yes Status: Chronic Assessment and plan: On albuterol but given tachycardia, has been changed to Xopenex as needed Qualifiers: Asthma severity: mild persistent Asthma complication type: uncomplicated Qualified Code(s): J45.30 - Mild persistent asthma, uncomplicated - Subjective Interval history: Patient complains of some palpitations and shortness of breath. Denies any chest pain. No cough. No fever or chills. No dizziness or lightheadedness. No pedal edema. - Constitutional Vitals: Temp Pulse Resp BP Pulse Ox 98.7 F 112 15 104/88 92 11/17/16 05:29 11/17/16 05:29 11/17/16 11:32 11/17/16 05:29 11/17/16 11:32 General appearance: Present: cooperative, mild distress, A&O X 3, answers questions appropriately - Neck Neck exam general surgery: Present: supple, trachea midline. Absent: lymphadenopathy - Respiratory Respiratory exam: Present: prolonged expiratory phase, wheezes. Absent: accessory muscle use, rales, rhonchi - Cardiovascular Cardiovascular exam: Present: irregular rhythm, +S1, +S2, tachycardia. Absent: diastolic murmur, gallop, rubs, systolic murmur - GI/Abdominal GI/Abdominal exam: Present: normal bowel sounds, soft, no peritoneal signs. Absent: distended, tenderness - Extremities Exam Extremities exam: Present: pedal edema, warm, radial pulses palpable and symetrical. Absent: calf tenderness, cyanotic - Neurological Exam Neurological exam: Present: alert, oriented X3, no focal deficits. Absent: facial droop, speech deficit - Skin Skin exam: Present: dry, intact Internal Medicine: Result - Labs CBC & Chem 7: 11/17/16 05:21 11/17/16 05:21 Labs: Short CBC 11/17/16 Range/Units 05:21 WBC 6.0 (4.3-11.1) K/mcL Hgb 12.7 (11.5-15.4) g/dL Hct 39.6 (35.3-44.9) % Plt Count 179 (140-400) K/mcL Neutrophils # 4.5 (1.6-8.9) K/mcL BMP 11/17/16 05:21 Sodium 144 Potassium 3.5 Chloride 105 Carbon Dioxide 30 H BUN 15 Creatinine 0.88 Glucose 114 H Calcium 9.3 Cardiac Enzymes 11/16/16 Range/Units 20:19 Troponin I 0.01 (0-0.03) ng/mL Liver Function 11/17/16 Range/Units 05:21 Total Bilirubin 1.3 H (0.2-1.2) mg/dL AST 20 (5-34) Units/L ALT 25 (0-55) Units/L Alkaline Phosphatase 91 (38-126) Units/L Albumin 3.3 L (3.5-5.0) g/dL - ABG Interpretation ABG results: PT/INR, D-dimer PT 26.8 Seconds (9.4-12.1) H 11/16/16 14:57 Consult Discharge Plan - Plan Referrals: Mello Mc MD [Primary Care Provider] - 11/28/16 11:00 am
[2016-11-18 05:23] LABS: BUN/Creatinine Ratio 23 (6-26); Blood Urea Nitrogen 19 mg/dL (7-20); Calcium 9.3 mg/dL (8.6-10.8); Carbon Dioxide 30 mEq/L (19-29); Chloride 103 mEq/L (98-109); Glucose 86 mg/dL (70-99); Osmolality,Calculated 298 (280-300); Sodium 143 mEq/L (136-145); eGFR For African Americans > 60 (> 60); eGFR For Non-African Americans > 60 (> 60)
[2016-11-18 05:56] LABS: Potassium 3.8 mEq/L (3.5-4.5)
--- NOTE | 2016-11-18 10:08 | Internal Med Progress Note ---
Date of Encounter: 11/18/16 Time of Encounter: 09:45 - Assessment and plan (1) Atrial fibrillation with RVR Current Visit: Yes Status: Acute Assessment and plan: Evaluated by cardiology. Recommended starting sotalol. Patient received 2 doses yesterday. Heart rate is improving. Still remains in A. fib. On IV Cardizem to control heart rate. We will wean as tolerated. High risk for complications due to use of a new antiarrhythmic and use of intravenous Cardizem (2) LARRY (acute kidney injury) Current Visit: Yes Status: Resolved (3) Congestive heart failure (CHF) Current Visit: Yes Status: Acute Assessment and plan: Continue Lasix. We will transition to oral Lasix as patient has had good response so far and is clinically improving. Qualifiers: Congestive heart failure type: combined Congestive heart failure chronicity : acute Qualified Code(s): I50.41 - Acute combined systolic (congestive) and diastolic (congestive) heart failure (4) Asthma Current Visit: Yes Status: Chronic Assessment and plan: Continue bronchodilators. Will resume Symbicort. Qualifiers: Asthma severity: mild persistent Asthma complication type: uncomplicated Qualified Code(s): J45.30 - Mild persistent asthma, uncomplicated (5) Interstitial lung disease Current Visit: Yes Status: Chronic Assessment and plan: Treat symptomatically. Continue O2 supplementation. As patient is having continued shortness of breath, we will also start systemic steroids. - Subjective Interval history: Patient had an episode of chest heaviness and shortness of breath early this morning. Treated with bronchodilators with improvement in her symptoms. She no longer has chest heaviness at this time. No palpitations. No other new complaints at this time. Patient says that she was on Symbicort before and is now sure whether she has asthma or COPD as she has been told of both the diagnoses at different times. 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 She also had findings suggestive of reactive small airway disease. - Constitutional Vitals: Temp Pulse Resp BP Pulse Ox 97.9 F 87 20 124/68 90 11/18/16 07:00 11/18/16 07:00 11/18/16 07:00 11/18/16 07:00 11/18/16 07:00 General appearance: Present: cooperative, mild distress, A&O X 3, answers questions appropriately - Neck Neck exam general surgery: Present: supple, trachea midline. Absent: lymphadenopathy - Respiratory Respiratory exam: Present: prolonged expiratory phase, rhonchi. Absent: accessory muscle use, rales, wheezes - Cardiovascular Cardiovascular exam: Present: irregular rhythm, +S1, +S2. Absent: diastolic murmur, gallop, rubs, systolic murmur - GI/Abdominal GI/Abdominal exam: Present: normal bowel sounds, soft, no peritoneal signs. Absent: distended, tenderness - Extremities Exam Extremities exam: Present: warm, radial pulses palpable and symetrical. Absent : calf tenderness, cyanotic, pedal edema - Neurological Exam Neurological exam: Present: alert, CN II-XII intact, oriented X3, no focal deficits. Absent: facial droop, speech deficit - Skin Skin exam: Present: dry, intact Internal Medicine: Result - Labs CBC & Chem 7: 11/17/16 05:21 11/18/16 03:22 Labs: BMP 11/17/16 11/18/16 05:21 03:22 Sodium 144 143 Potassium 3.5 3.8 Chloride 105 103 Carbon Dioxide 30 H 30 H BUN 15 19 Creatinine 0.88 0.81 Glucose 114 H 86 Calcium 9.3 9.3 Cardiac Enzymes 11/18/16 Range/Units 03:22 Troponin I 0.01 (0-0.03) ng/mL Liver Function 11/17/16 Range/Units 05:21 Total Bilirubin 1.3 H (0.2-1.2) mg/dL AST 20 (5-34) Units/L ALT 25 (0-55) Units/L Alkaline Phosphatase 91 (38-126) Units/L Albumin 3.3 L (3.5-5.0) g/dL - ABG Interpretation ABG results: PT/INR, D-dimer PT 26.8 Seconds (9.4-12.1) H 11/16/16 14:57 Consult Discharge Plan - Plan Referrals: Mello Mc MD [Primary Care Provider] - 11/28/16 11:00 am
[2016-11-18] MEDS: Furosemide 40 MG/4 ML VIAL IVP SCH ×2 (10:13→17:00)
[2016-11-18] MEDS: Aspirin Enteric Coated 81 MG Tablet PO SCH (10:13)
[2016-11-18] MEDS: Gabapentin 300 MG CAPSULE PO SCH ×3 (10:14→20:41)
[2016-11-18] MEDS: predniSONE 20 MG TABLET PO SCH (11:17)
[2016-11-18] MEDS: Levalbuterol Neb 1.25 MG/3 ML IH SCH ×3 (11:22→19:43)
[2016-11-18] MEDS: Budesonide/Formoterol 160/4.5 MDI IH SCH ×2 (11:22→19:43)
--- NOTE | 2016-11-18 14:24 | Cardiology Progress Note ---
Date of Encounter: 11/18/16 Time of Encounter: 14:20 Assessment and Plan (1) Atrial fibrillation with RVR Current Visit: Yes Status: Acute Known hx of Paroxysmal A-Fib, anticoagulated on Xarelto. Dyspnea/palpitations started 3-4 days ago. Previously on amiodarone, stopped due to pulmonary toxicity. Pt is on Lopressor 50mg BID and cardizem 240 mg daily currently and at home. Echo EF 50%, moderate valvular disease, severely dilated left atrium. [facility] 04/2010 minimal CAD. HR controlled improved, HR 80-100's upon exam. Continue lopressor 50 mg BID and sotalol 80 mg BID. Wean off cardizem gtt to keep HR less than 100. ECG upon admission: Afib HR 100 QRS 77 QT/QTc 350,407 ms. ECG 11/18/16: Afib HR 98 QRS 86 QT/QTc 371,426 ms after 2 doses of sotalol Continue daily ECG's and monitor kidney function. Has been on Xarelto 20 mg daily for 30+ days without missed dose. Possible DCCV after 5th dose if does not convert to NSR. Patient/family are agreeable to plan. (2) Congestive heart failure Current Visit: Yes Status: Chronic Dypsnea likely secondary to RVR. Clinically appears euvolemic upon exam, CTA negative for acute process. Continue home medications. Qualifiers: Congestive heart failure type: diastolic Congestive heart failure chronicity: chronic Qualified Code(s): I50.32 - Chronic diastolic (congestive ) heart failure Discussion w patient/family: The assessment and plan as outlined above was discussed with the patient and/or family members who expressed understanding and agreement. All questions were answered. Thank you for involving us in the care of your patient. Please call with any questions. The patient was discussed and reviewed with Dr. Benton; changes to be made accordingly. Subjective Principal diagnosis: Afib Interval history: Seen and examined. Reports dyspnea is much better today, HR control has improved. Reports episode of shortness of breath this AM--improved after breathing tx. Objective Vital Signs, Last 4 Hours Pulse Resp BP Pulse Ox 11/18/16 13:22 99 138/104 11/18/16 11:24 16 96 General: Conversant, No Apparent Distress HEENT: Atraumatic, Normocephaly Cardiac: Other (irregularly irregular) Lungs: Normal Breath Sounds Neuro: Alert and responsive Abdomen: Soft Skin: No rashes noted on visualized skin Musculoskeletal: No Chest Wall Tenderness Extremities: No Edema, Normal Pulses Results 11/17/16 05:21 11/18/16 03:22 Lab Results 11/18/16 11/18/16 03:22 03:22 Sodium 143 Potassium 3.8 Chloride 103 Carbon Dioxide 30 H BUN 19 Creatinine 0.81 Glucose 86 Calcium 9.3 Troponin I 0.01 Active Medications Acetaminophen (Tylenol) 650 mg PO Q6HR PRN PRN Reason: Mild Pain (1-3) Stop: 05/18/17 19:41 Aspirin (Aspirin Ec) 81 mg PO DAILY [facility] Stop: 05/19/17 09:01 Last Admin: 11/18/16 10:13 Dose: 81 mg Budesonide/Formoterol Fumarate (Symbicort) 2 puff IH BIDRESP LENIN PRN Reason: Protocol Stop: 05/20/17 10:01 Last Admin: 11/18/16 11:22 Dose: 2 puff Furosemide (Lasix) 40 mg IVP BIDDIURETIC [facility] Stop: 05/18/17 20:01 Last Admin: 11/18/16 10:13 Dose: 40 mg Gabapentin (Neurontin) 300 mg PO TID [facility] Stop: 05/18/17 21:01 Last Admin: 11/18/16 10:14 Dose: 300 mg Diltiazem HCl 125 mg/ Dextrose 125 mls @ 10 mls/hr IVC .[id number] LENIN; 10 MG/HR PRN Reason: Protocol Stop: 05/19/17 11:01 Last Admin: 11/18/16 03:30 Dose: 5 mg/hr, 5 mls/hr Levalbuterol HCl (Xopenex) 1.25 mg IH [id number] LENIN Stop: 05/20/17 10:52 Last Admin: 11/18/16 11:22 Dose: 1.25 mg Metoprolol Tartrate (Lopressor) 50 mg PO BID [facility] Stop: 05/18/17 21:01 Last Admin: 11/18/16 10:13 Dose: 50 mg Naloxone HCl (Narcan) 0.4 mg IVP Q2MIN PRN PRN Reason: Opioid Reversal Stop: 05/18/17 19:41 Potassium Chloride (Potassium Chloride) 20 meq PO BID [facility] Stop: 05/19/17 11:01 Last Admin: 11/18/16 10:14 Dose: 20 meq Prednisone (Prednisone) 40 mg PO DAILY [facility] Stop: 05/20/17 10:16 Last Admin: 11/18/16 11:17 Dose: 40 mg Rivaroxaban (Xarelto) 15 mg PO 1700 [facility] Stop: 05/20/17 17:01 Sotalol HCl (Betapace) 80 mg PO Q12HR LENIN Stop: 05/19/17 18:01 Last Admin: 11/18/16 05:03 Dose: 80 mg - Imaging and Cardiology Echo: report reviewed Other Results: 12 hour tele: avg [id number] afib. - EKG Interpretation EKG results cardiology: personally reviewed Consult Discharge Plan - Plan Referrals: Mello Mc MD [Primary Care Provider] - 11/28/16 11:00 am
[2016-11-18] MEDS: *HR* Rivaroxaban 15 MG TABLET PO SCH (17:00)
--- NOTE | 2016-11-18 17:48 | Electrocardiograph Report ---
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
--- NOTE | 2016-11-18 17:51 | Electrocardiograph Report ---
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
[2016-11-19] MEDS: Levalbuterol Neb 1.25 MG/3 ML IH SCH ×4 (03:39→21:53)
[2016-11-19] MEDS: Furosemide 40 MG TABLET PO SCH ×2 (07:56→17:18)
[2016-11-19] MEDS: Gabapentin 300 MG CAPSULE PO SCH ×3 (07:56→20:39)
[2016-11-19] MEDS: Aspirin Enteric Coated 81 MG Tablet PO SCH (07:56)
[2016-11-19] MEDS: predniSONE 20 MG TABLET PO SCH (07:56)
--- NOTE | 2016-11-19 08:24 | Cardiology Progress Note ---
Date of Encounter: 11/19/16 Time of Encounter: 07:00 Assessment and Plan (1) Atrial fibrillation with RVR Current Visit: Yes Status: Acute Known hx of Paroxysmal A-Fib, anticoagulated on Xarelto. Dyspnea/palpitations started 3-4 days ago. Previously on amiodarone, stopped due to pulmonary toxicity. Pt is on Lopressor 50mg BID and cardizem 240 mg daily currently and at home. Echo EF 50%, moderate valvular disease, severely dilated left atrium. [facility] 04/2010 minimal CAD. HR controlled improved, HR 80-100's upon exam. Decrease lopressor to 25 mg BID; continue sotalol 80 mg BID. Wean off cardizem gtt to keep HR less than 100. ECG upon admission: Afib HR 100 QRS 77 QT/QTc 350,407 ms. ECG 11/18/16: Afib HR 98 QRS 86 QT/QTc 371,426 ms ECG 11/19/16: Afib HR 84 QRS 88 QT/QTc 380,421 ms Continue daily ECG's and monitor kidney function. Has been on Xarelto 20 mg daily for 30+ days without missed dose. Possible DCCV after 5th dose if does not convert to NSR. Patient/family are agreeable to plan. (2) Congestive heart failure Current Visit: Yes Status: Chronic Dypsnea likely secondary to RVR. Clinically appears euvolemic upon exam, CTA negative for acute process. Continue home medications. Qualifiers: Congestive heart failure type: diastolic Congestive heart failure chronicity: chronic Qualified Code(s): I50.32 - Chronic diastolic (congestive ) heart failure Discussion w patient/family: The assessment and plan as outlined above was discussed with the patient and/or family members who expressed understanding and agreement. All questions were answered. Thank you for involving us in the care of your patient. Please call with any questions. The patient was discussed and reviewed with Dr. Benton; changes to be made accordingly. Subjective Principal diagnosis: Afib Interval history: Seen and examined. Reports dyspnea is much better today, HR control improving--HR 70's upon exam. Objective Vital Signs, Last 4 Hours Temp Pulse Resp BP Pulse Ox 11/19/16 06:13 97.5 F L 84 15 140/87 11/19/16 04:35 104 17 121/81 94 General: Conversant HEENT: Atraumatic, Normocephaly Cardiac: Other (irregularly irregular) Lungs: Normal Breath Sounds Neuro: Alert and responsive Abdomen: Soft Skin: No rashes noted on visualized skin Musculoskeletal: No Chest Wall Tenderness Extremities: Normal Pulses, Other (mild BLE edema) Results 11/17/16 05:21 11/18/16 03:22 Active Medications Acetaminophen (Tylenol) 650 mg PO Q6HR PRN PRN Reason: Mild Pain (1-3) Stop: 05/18/17 19:41 Aspirin (Aspirin Ec) 81 mg PO DAILY [facility] Stop: 05/19/17 09:01 Last Admin: 11/19/16 07:56 Dose: 81 mg Budesonide/Formoterol Fumarate (Symbicort) 2 puff IH BIDRESP LENIN PRN Reason: Protocol Stop: 05/20/17 10:01 Last Admin: 11/18/16 19:43 Dose: 2 puff Furosemide (Lasix) 40 mg PO BIDDIURETIC [facility] Stop: 05/21/17 08:01 Last Admin: 11/19/16 07:56 Dose: 40 mg Gabapentin (Neurontin) 300 mg PO TID [facility] Stop: 05/18/17 21:01 Last Admin: 11/19/16 07:56 Dose: 300 mg Diltiazem HCl 125 mg/ Dextrose 125 mls @ 10 mls/hr IVC .[id number] LENIN; 10 MG/HR PRN Reason: Protocol Stop: 05/19/17 11:01 Last Titration: 11/19/16 08:02 Dose: 5 mg/hr, 5 mls/hr Levalbuterol HCl (Xopenex) 1.25 mg IH Q3NPNBT [facility] Stop: 05/20/17 10:52 Last Admin: 11/19/16 03:39 Dose: 1.25 mg Metoprolol Tartrate (Lopressor) 25 mg PO BID [facility] Stop: 05/21/17 09:01 Naloxone HCl (Narcan) 0.4 mg IVP Q2MIN PRN PRN Reason: Opioid Reversal Stop: 05/18/17 19:41 Potassium Chloride (Potassium Chloride) 20 meq PO BID [facility] Stop: 05/19/17 11:01 Last Admin: 11/19/16 07:56 Dose: 20 meq Prednisone (Prednisone) 40 mg PO DAILY [facility] Stop: 05/20/17 10:16 Last Admin: 11/19/16 07:56 Dose: 40 mg Rivaroxaban (Xarelto) 15 mg PO 1700 [facility] Stop: 05/20/17 17:01 Last Admin: 11/18/16 17:00 Dose: 15 mg Sotalol HCl (Betapace) 80 mg PO Q12HR [facility] Stop: 05/19/17 18:01 Last Admin: 11/19/16 05:14 Dose: 80 mg - Imaging and Cardiology Echo: report reviewed Other Results: 12 hour tele: avg HR=86 afib. - EKG Interpretation EKG results cardiology: personally reviewed Consult Discharge Plan - Plan Referrals: Mello Mc MD [Primary Care Provider] - 11/28/16 11:00 am
[2016-11-19] MEDS: Budesonide/Formoterol 160/4.5 MDI IH SCH ×2 (11:24→21:53)
--- NOTE | 2016-11-19 13:57 | Internal Med Progress Note ---
Date of Encounter: 11/19/16 Time of Encounter: 09:45 - Assessment and plan (1) Atrial fibrillation with RVR Current Visit: Yes Status: Acute Assessment and plan: On Cardizem drip. Also receiving oral sotalol. Heart rate ranging between 80 and 110. Cardiology following. Patient did have a short run of nonsustained ventricular tachycardia yesterday. Has not had further episodes since then. Moderate risk for complications. (2) LARRY (acute kidney injury) Current Visit: Yes Status: Resolved (3) Congestive heart failure (CHF) Current Visit: Yes Status: Acute Assessment and plan: On oral Lasix. Clinically improving. Continue current dosage for now. Qualifiers: Congestive heart failure type: combined Congestive heart failure chronicity : acute Qualified Code(s): I50.41 - Acute combined systolic (congestive) and diastolic (congestive) heart failure (4) Interstitial lung disease Current Visit: Yes Status: Chronic Assessment and plan: Likely idiopathic. Patient was not on amiodarone long enough for this to be the cause of the patient's interstitial lung disease. Continue O2 supplementation. (5) Reactive airway disease Current Visit: Yes Status: Acute Assessment and plan: Mild exacerbation. Treating with Xopenex. Qualifiers: Asthma severity: mild persistent Asthma complication type: with acute exacerbation Qualified Code(s): J45.31 - Mild persistent asthma with (acute) exacerbation - Subjective Interval history: Patient doing well today. Denies any palpitations. No significant shortness of breath today. No chest pains. No other new complaints at this time. - Constitutional Vitals: Temp Pulse Resp BP Pulse Ox 97.6 F 74 15 118/81 96 11/19/16 11:11 11/19/16 11:11 11/19/16 11:27 11/19/16 11:11 11/19/16 11:27 General appearance: Present: cooperative, mild distress, A&O X 3, answers questions appropriately - Eye Eye exam: Present: EOMI, PERRL - Neck Neck exam general surgery: Present: supple, trachea midline. Absent: lymphadenopathy - Respiratory Respiratory exam: Present: CTAB. Absent: accessory muscle use, rales, rhonchi, wheezes - Cardiovascular Cardiovascular exam: Present: irregular rhythm, +S1, +S2. Absent: diastolic murmur, gallop, rubs, systolic murmur - Extremities Exam Extremities exam: Present: warm, radial pulses palpable and symetrical. Absent : calf tenderness, cyanotic, pedal edema - Neurological Exam Neurological exam: Present: alert, oriented X3, no focal deficits. Absent: facial droop, speech deficit Internal Medicine: Result - Labs CBC & Chem 7: 11/17/16 05:21 11/18/16 03:22 - ABG Interpretation ABG results: PT/INR, D-dimer PT 26.8 Seconds (9.4-12.1) H 11/16/16 14:57 Consult Discharge Plan - Plan Referrals: Mello Mc MD [Primary Care Provider] - 11/28/16 11:00 am
[2016-11-19] MEDS: *HR* Rivaroxaban 15 MG TABLET PO SCH (17:18)
[2016-11-20 03:31] LABS: BUN/Creatinine Ratio 31 (6-26); Blood Urea Nitrogen 27 mg/dL (7-20); Calcium 9.5 mg/dL (8.6-10.8); Carbon Dioxide 27 mEq/L (19-29); Chloride 106 mEq/L (98-109); Glucose 136 mg/dL (70-99); Magnesium 2.3 mg/dL (1.6-2.6); Osmolality,Calculated 301 (280-300); Sodium 142 mEq/L (136-145); eGFR For African Americans > 60 (> 60); eGFR For Non-African Americans > 60 (> 60)
[2016-11-20 03:32] LABS: Potassium 4.2 mEq/L (3.5-4.5)
[2016-11-20] MEDS: Levalbuterol Neb 1.25 MG/3 ML IH SCH ×4 (03:47→21:24)
[2016-11-20] MEDS: Aspirin Enteric Coated 81 MG Tablet PO SCH (07:32)
[2016-11-20] MEDS: predniSONE 20 MG TABLET PO SCH (07:32)
[2016-11-20] MEDS: Gabapentin 300 MG CAPSULE PO SCH ×3 (07:32→20:18)
[2016-11-20] MEDS: Furosemide 40 MG TABLET PO SCH ×2 (07:32→17:25)
--- NOTE | 2016-11-20 09:43 | Cardiology Progress Note ---
Date of Encounter: 11/20/16 Time of Encounter: 09:50 Assessment and Plan (1) Atrial fibrillation with RVR Current Visit: Yes Status: Acute Known hx of Paroxysmal A-Fib, anticoagulated on Xarelto. Dyspnea/palpitations started 3-4 days ago. Previously on amiodarone, stopped due to pulmonary toxicity. Pt is on Lopressor 50mg BID and cardizem 240 mg daily currently and at home. Echo EF 50%, moderate valvular disease, severely dilated left atrium. [facility] 04/2010 minimal CAD. HR controlled improved, HR 80-100's upon exam, avg=84. Decrease lopressor to 25 mg BID; continue sotalol 80 mg BID. Change cardizem to po today. ECG upon admission: Afib HR 100 QRS 77 QT/QTc 350,407 ms. ECG 11/18/16: Afib HR 98 QRS 86 QT/QTc 371,426 ms ECG 11/19/16: Afib HR 84 QRS 88 QT/QTc 380,421 ms ECG 11/20/16: Afib HR 96 QRS QT/QTc 381,434 ms Continue daily ECG's and monitor kidney function. Has been on Xarelto 20 mg daily for 30+ days without missed dose. s/p 6 doses of Sotalol. Plan for DCCV in AM, will make NPO after MN except medications. Patient is agreeable to proceed. (2) Congestive heart failure Current Visit: Yes Status: Chronic Dypsnea likely secondary to RVR. Clinically appears euvolemic upon exam, CTA negative for acute process. Continue home medications. Qualifiers: Congestive heart failure type: diastolic Congestive heart failure chronicity: chronic Qualified Code(s): I50.32 - Chronic diastolic (congestive ) heart failure Discussion w patient/family: The assessment and plan as outlined above was discussed with the patient and/or family members who expressed understanding and agreement. All questions were answered. Thank you for involving us in the care of your patient. Please call with any questions. The patient was discussed and reviewed with Dr. Benton; changes to be made accordingly. Subjective Principal diagnosis: Afib Interval history: Seen and examined. Reports dyspnea is much better today, HR control improving--HR 70's upon exam. Objective Vital Signs, Last 4 Hours Temp Pulse Resp BP Pulse Ox 11/20/16 07:43 98.0 F 93 15 126/91 94 General: Conversant, No Apparent Distress HEENT: Atraumatic, Normocephaly, Mucus Membranes Moist Cardiac: Other (irregularly irregular) Lungs: Normal Breath Sounds Neuro: Alert and responsive Abdomen: Soft Skin: No rashes noted on visualized skin Musculoskeletal: No Chest Wall Tenderness Extremities: Other (bilateral non-pitting edema) Results 11/17/16 05:21 11/20/16 02:54 Lab Results 11/20/16 02:54 Sodium 142 Potassium 4.2 Chloride 106 Carbon Dioxide 27 BUN 27 H Creatinine 0.87 Glucose 136 H Calcium 9.5 Magnesium 2.3 Active Medications Acetaminophen (Tylenol) 650 mg PO Q6HR PRN PRN Reason: Mild Pain (1-3) Stop: 05/18/17 19:41 Aspirin (Aspirin Ec) 81 mg PO DAILY [facility] Stop: 05/19/17 09:01 Last Admin: 11/20/16 07:32 Dose: 81 mg Budesonide/Formoterol Fumarate (Symbicort) 2 puff IH BIDRESP LENIN PRN Reason: Protocol Stop: 05/20/17 10:01 Last Admin: 11/20/16 09:57 Dose: 2 puff Diltiazem HCl (Cardizem Cd) 180 mg PO DAILY [facility] Stop: 05/22/17 10:01 Furosemide (Lasix) 40 mg PO BIDDIURETIC [facility] Stop: 05/21/17 08:01 Last Admin: 11/20/16 07:32 Dose: 40 mg Gabapentin (Neurontin) 300 mg PO TID [facility] Stop: 05/18/17 21:01 Last Admin: 11/20/16 07:32 Dose: 300 mg Levalbuterol HCl (Xopenex) 1.25 mg IH [id number] [facility] Stop: 05/20/17 10:52 Last Admin: 11/20/16 09:57 Dose: 1.25 mg Metoprolol Tartrate (Lopressor) 25 mg PO BID [facility] Stop: 05/21/17 09:01 Last Admin: 11/20/16 07:32 Dose: 25 mg Naloxone HCl (Narcan) 0.4 mg IVP Q2MIN PRN PRN Reason: Opioid Reversal Stop: 05/18/17 19:41 Potassium Chloride (Potassium Chloride) 20 meq PO BID [facility] Stop: 05/19/17 11:01 Last Admin: 11/20/16 07:32 Dose: 20 meq Prednisone (Prednisone) 40 mg PO DAILY [facility] Stop: 05/20/17 10:16 Last Admin: 11/20/16 07:32 Dose: 40 mg Rivaroxaban (Xarelto) 15 mg PO 1700 [facility] Stop: 05/20/17 17:01 Last Admin: 11/19/16 17:18 Dose: 15 mg Sotalol HCl (Betapace) 80 mg PO Q12HR [facility] Stop: 05/19/17 18:01 Last Admin: 11/20/16 05:32 Dose: 80 mg - Imaging and Cardiology Echo: report reviewed Other Results: 12 hour tele: avg HR=84 afib. No significant pause or event. - EKG Interpretation EKG results cardiology: personally reviewed Consult Discharge Plan - Plan Referrals: Mello Mc MD [Primary Care Provider] - 11/28/16 11:00 am
[2016-11-20] MEDS: Budesonide/Formoterol 160/4.5 MDI IH SCH ×2 (09:57→21:24)
[2016-11-20] MEDS: Diltiazem CD (24hr) 180 MG CAPSULE PO SCH (10:10)
--- NOTE | 2016-11-20 14:57 | Internal Med Progress Note ---
Date of Encounter: 11/20/16 Time of Encounter: 14:57 - Assessment and plan (1) Atrial fibrillation with RVR Current Visit: Yes Status: Acute Assessment and plan: On Cardizem drip. We will wean as tolerated. Has had 6 doses of sotalol but remains in A. fib. Discussed with cardiology. Plan for DC cardioversion in the morning. We will keep her nothing by mouth after midnight. Patient aware of plan. Patient has been anticoagulated with Xarelto for more than one month. (2) LARRY (acute kidney injury) Current Visit: Yes Status: Resolved (3) Congestive heart failure (CHF) Current Visit: Yes Status: Acute Assessment and plan: Acute symptoms resolving. Continue Lasix. 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 Taper steroids. Qualifiers: Asthma severity: mild persistent Asthma complication type: with acute exacerbation Qualified Code(s): J45.31 - Mild persistent asthma with (acute) exacerbation - Subjective Interval history: Patient remains in A. fib although rate controlled. On Cardizem drip still. Denies any chest pain or shortness of breath at this time. No pedal edema. No nausea or vomiting. - Constitutional Vitals: Temp Pulse Resp BP Pulse Ox 98.0 F 93 18 126/91 91 11/20/16 07:43 11/20/16 07:43 11/20/16 09:57 11/20/16 07:43 11/20/16 09:57 General appearance: Present: cooperative, mild distress, A&O X 3, answers questions appropriately - Respiratory Respiratory exam: Present: CTAB. Absent: accessory muscle use, rales, rhonchi, wheezes - Cardiovascular Cardiovascular exam: Present: irregular rhythm, +S1, +S2. Absent: diastolic murmur, gallop, rubs, systolic murmur - GI/Abdominal GI/Abdominal exam: Present: normal bowel sounds, soft, no peritoneal signs. Absent: distended, tenderness Internal Medicine: Result - Labs CBC & Chem 7: 11/17/16 05:21 11/20/16 02:54 Labs: BMP 11/20/16 02:54 Sodium 142 Potassium 4.2 Chloride 106 Carbon Dioxide 27 BUN 27 H Creatinine 0.87 Glucose 136 H Calcium 9.5 - ABG Interpretation ABG results: PT/INR, D-dimer PT 26.8 Seconds (9.4-12.1) H 11/16/16 14:57 Consult Discharge Plan - Plan Referrals: Mello Mc MD [Primary Care Provider] - 11/28/16 11:00 am
[2016-11-20] MEDS: *HR* Rivaroxaban 15 MG TABLET PO SCH (17:24)
[2016-11-21] MEDS: Levalbuterol Neb 1.25 MG/3 ML IH SCH ×4 (03:39→21:42)
[2016-11-21] MEDS: Diltiazem CD (24hr) 180 MG CAPSULE PO SCH (07:40)
[2016-11-21] MEDS: Gabapentin 300 MG CAPSULE PO SCH ×3 (07:40→20:39)
[2016-11-21] MEDS: predniSONE 20 MG TABLET PO SCH (07:41)
[2016-11-21] MEDS: Furosemide 40 MG TABLET PO SCH ×2 (07:41→18:04)
[2016-11-21] MEDS: Aspirin Enteric Coated 81 MG Tablet PO SCH (07:41)
[2016-11-21] MEDS ORDERED: 0.9 % Sodium Chloride 500 ML IVC ONE (09:50)
[2016-11-21] MEDS ORDERED: *HR* Midazolam HCl 5 MG/5 ML VIAL IVP PRN (09:50)
[2016-11-21] MEDS ORDERED: *HR* FentaNYL (PF) 100 MCG/2 ML VIAL IVP PRN (09:50)
--- NOTE | 2016-11-21 10:03 | Event Note ---
Date of Encounter: 11/21/16 Time of Encounter: 09:45 - Cardiology Event Note Seen and examined. HR 90's-100's this AM, Afib. Has been NPO after MN except medications. Now s/p 7 doses of sotalol. Has been on Xarelto without missed doses in >30 days. Code status: [id number], patient has consented and agrees to DCCV today, she is aware she will be FULL code for 24 hours after procedure. Family at bedside. All questions and concerns were addressed, patient is agreeable to proceed with DCCV today. Further recommendations to follow.
--- NOTE | 2016-11-21 10:41 | Electrocardiograph Report ---
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
[2016-11-21] MEDS: Budesonide/Formoterol 160/4.5 MDI IH SCH ×2 (11:16→21:42)
--- NOTE | 2016-11-21 14:27 | Internal Med Progress Note ---
Date of Encounter: 11/21/16 Time of Encounter: 09:00 - Assessment and plan (1) Atrial fibrillation with RVR Current Visit: Yes Status: Acute Assessment and plan: Patient is scheduled for DC cardioversion later today. Remains on anticoagulation with Xarelto. On by mouth Cardizem and sotalol. Cardiology following. High risk for complications due to DC cardioversion. Monitor vital signs closely. (2) Congestive heart failure (CHF) Current Visit: Yes Status: Chronic Assessment and plan: Continue Lasix. 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 Continue outpatient follow-up with pulmonology after discharge. (5) Reactive airway disease Current Visit: Yes Status: Acute Assessment and plan: On bronchodilators. We will begin to taper steroids to complete a short tapering course as outpatient. Qualifiers: Asthma severity: mild persistent Asthma complication type: with acute exacerbation Qualified Code(s): J45.31 - Mild persistent asthma with (acute) exacerbation - Subjective Interval history: Patient is awake and alert and appears comfortable. Denies any chest pain. Remains in A. fib although she has been off Cardizem drip. Denies any dizziness or lightheadedness. - Constitutional Vitals: Temp Pulse Resp BP Pulse Ox 97.9 F 52 17 152/72 93 11/21/16 13:34 11/21/16 13:34 11/21/16 13:34 11/21/16 13:34 11/21/16 13:34 General appearance: Present: cooperative, mild distress, A&O X 3, answers questions appropriately - Respiratory Respiratory exam: Present: prolonged expiratory phase, wheezes. Absent: accessory muscle use, rales, rhonchi - Cardiovascular Cardiovascular exam: Present: irregular rhythm, +S1, +S2. Absent: diastolic murmur, gallop, rubs, systolic murmur - GI/Abdominal GI/Abdominal exam: Present: normal bowel sounds, soft, no peritoneal signs. Absent: distended, tenderness - Extremities Exam Extremities exam: Present: warm, radial pulses palpable and symetrical. Absent : calf tenderness, cyanotic, pedal edema Internal Medicine: Result - Labs CBC & Chem 7: 11/17/16 05:21 11/20/16 02:54 - ABG Interpretation ABG results: PT/INR, D-dimer PT 26.8 Seconds (9.4-12.1) H 11/16/16 14:57 Consult Discharge Plan - Plan Referrals: Mello Mc MD [Primary Care Provider] - 11/28/16 11:00 am
[2016-11-21] MEDS ORDERED: predniSONE 10 MG TABLET PO SCH (14:29)
--- NOTE | 2016-11-21 16:02 | Electrocardiograph Report ---
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
[2016-11-21] MEDS: *HR* Rivaroxaban 15 MG TABLET PO SCH (18:04)
[2016-11-22] MEDS: Levalbuterol Neb 1.25 MG/3 ML IH SCH ×2 (03:45→09:09)
[2016-11-22 05:46] LABS: BUN/Creatinine Ratio 30 (6-26); Blood Urea Nitrogen 22 mg/dL (7-20); Carbon Dioxide 32 mEq/L (19-29); Chloride 104 mEq/L (98-109); Potassium 3.6 mEq/L (3.5-4.5); Sodium 142 mEq/L (136-145); eGFR For African Americans > 60 (> 60)
[2016-11-22 05:47] LABS: Calcium 9.2 mg/dL (8.6-10.8); Glucose 94 mg/dL (70-99); Osmolality,Calculated 297 (280-300); eGFR For Non-African Americans > 60 (> 60)
[2016-11-22 05:53] LABS: Basophils % 0.1 %; Eosinophils % 0.3 %; Hemoglobin 12.6 g/dL (11.5-15.4); Immature Granulocytes % 0.9 % (0-4); Lymphocytes # 0.8 K/mcL (0.6-4.6); Lymphocytes % 12.1 %; Mean Corpuscular HGB Conc 32.3 g/dL (31.6-35.5); Mean Corpuscular Hemoglobin 31.3 pg (28.0-33.3); Mean Corpuscular Volume 96.8 fL (83.0-100.0); Mean Platelet Volume 10.3 fL (9.4-12.4); Monocytes # 0.7 K/mcL (0.0-1.3); Monocytes % 9.5 %; Neutrophils # 5.4 K/mcL (1.6-8.9); Platelet Count 188 K/mcL (140-400); Red Blood Count 4.03 M/mcL (3.82-4.97); Red Cell Distribution Width 15.1 % (11.5-14.5); Segmented Neutrophils % 77.1 %
[2016-11-22 08:31] VITALS: BP 102/79
--- NOTE | 2016-11-22 08:32 | Discharge Summary ---
Date of Encounter: 11/22/16 Time of Encounter: 08:30 - Discharge Diagnosis (1) Atrial fibrillation Priority: Primary Status: Chronic Qualifiers: Atrial fibrillation type: paroxysmal Qualified Code(s): I48.0 - Paroxysmal atrial fibrillation (2) Respiratory failure Priority: Secondary Status: Chronic Qualifiers: Chronicity: chronic Respiratory failure complication: hypoxia Qualified Code(s): J96.11 - Chronic respiratory failure with hypoxia (3) Congestive heart failure (CHF) Priority: Secondary Status: Chronic Qualifiers: Congestive heart failure type: diastolic Congestive heart failure chronicity: chronic Qualified Code(s): I50.32 - Chronic diastolic (congestive ) heart failure (4) Interstitial lung disease Priority: Secondary Status: Chronic (5) Hypertension Priority: Secondary Status: Acute Qualifiers: Hypertension type: essential hypertension Qualified Code(s): I10 - Essential (primary) hypertension - Discharge Medications Prescriptions: Sotalol [Betapace] 80 mg PO Q12HR #120 tablet Diltiazem CD (24hr) [Cardizem CD] 180 mg PO DAILY #30 cap.er.24h Home Medications: Aspirin [Adult Low Dose Aspirin EC] 81 mg PO DAILY 07/24/15 [History] Gabapentin [Neurontin] 300 mg PO TID 07/24/15 [History] Niacin [Niaspan] 500 mg PO HS 07/24/15 [History] Rivaroxaban [Xarelto] 20 mg PO DAILY #30 tablet 07/27/15 [Rx] Multivit/Ca/Min/Fe/FA [Thera M Plus] 1 tab PO DAILY tablet 08/06/15 [Rx] Furosemide [Lasix] 40 mg PO BID 08/11/15 [History] Nystatin Cream [Mycostatin Cream] 1 appl TP TID PRN 10/31/16 [History] Oxygen 2 l NS CONT 10/31/16 [History] Potassium Chloride [K-Tab ER] 20 meq PO BID 10/31/16 [History] Levalbuterol Neb [Xopenex Neb] 0.63 mg IH BID 11/16/16 [History] Diltiazem CD (24hr) [Cardizem CD] 180 mg PO DAILY #30 cap.er.24h 11/22/16 [Rx] Sotalol [Betapace] 80 mg PO Q12HR #120 tablet 11/22/16 [Rx] Allergies/Adverse Reactions: Allergies amiodarone Adverse Reaction (Verified 11/17/16 12:20) pulmonary toxicity Cyclobenzaprine [From Flexeril] Adverse Reaction (Verified 07/24/15 19:41) Hallucinating fenofibrate [From Tricor] Adverse Reaction (Verified 07/24/15 19:41) Muscle Pain Vvtqyyd-Kyb-Fot Reductase Inhibitor [Statins] Adverse Reaction (Verified 17:51) Muscle Pain tramadol [From Ultram] Adverse Reaction (Verified 07/24/15 19:41) Itching Procedures/tests Complete & Pending: Procedures Performed prior 72 hours Category Date Time Status ECG 12 lead ECG [ECG] AM 0600 Y 11/20/16 06:00 Completed ECG 12 lead ECG [ECG] AM 0600 Y 11/21/16 06:00 Completed ECG 12 lead ECG [ECG] AM 0600 Y 11/22/16 06:00 Completed ECG 12 lead ECG [ECG] Routine Y 11/21/16 10:23 Completed EV cardioversion Routine Y 11/21/16 09:00 Completed Date of admission: 11/16/16 19:40 Primary care physician: Mello Mc MD Consults: 11/16/16 19:57 Consult to Cardiology [CONS] Routine Comment: Consulting Provider: Cardiology Yuridia Reason for Consult: A-fib with RVR Call Completed: No Discharging clinician: Masoud Lambert Anticipated date of discharge: 11/22/16 - Patient Status Disposition: Home Health Service Condition: Fair Functional capacity at discharge: uses cane/walker Overall status at discharge: patient is back to baseline - Discharge Instructions Follow Up With: Mello Mc MD [Primary Care Provider] - 11/28/16 11:00 am Martinez Liang DO [Partnered Physician] - - Diet and Activity Activity: ambulate only with your walker, as per physical therapy, increase activity as tolerated, wear oxygen at all times Diet: low fat, low cholesterol, low salt diet Hospital course: Ms. Bacon is a 76 year old female with a history of paroxysmal atrial fibrillation, diastolic CHF, interstitial lung disease and chronic respiratory hypoxic failure who presented to the emergency room due to worsening shortness of breath. She required 5 L of oxygen via nasal cannula which is about her baseline where she requires 2 L of oxygen via nasal cannula. The patient was found to have atrial flutter ablation with rapid ventricle response. She was admitted to the hospital and her home medications were continued. She was also placed on Cardizem drip at that time. Cardiology was consulted. Patient was evaluated by cardiology. As the patient was not on any antiarrhythmic drug therapy given her history of paroxysmal atrial ablation, she was started on sotalol. Her Lopressor was discontinued. The patient underwent direct current cardioversion on 11/21/2016 with conversion to sinus rhythm. The patient had dramatic improvement in her symptoms after cardioversion. She remains in sinus rhythm on 80 mg twice a day sotalol and 180 mg extended release Cardizem. The patient has been evaluated by cardiology has been deemed stable to be discharged home today. On the day of discharge, the patient denies any symptoms and states that she feels back to baseline and is eager to be discharged home. - Time Spent with Patient Total time spent providing and/or coordinating discharge services: Greater than 30 minutes (40 min) - Constitutional Vitals: Temp Pulse Resp BP Pulse Ox 97.3 F L 62 18 131/96 93 11/22/16 03:34 11/22/16 03:34 11/22/16 03:45 11/22/16 03:34 11/22/16 03:45 General appearance: Present: cooperative, mild distress, A&O X 3, answers questions appropriately Exam: Gen.: Sitting in bed. No acute distress. Chest: Intermittent wheezing present. CVS: First and second heart sounds present. No murmurs, rubs or gallops. Regular rate and rhythm. bilateral 2+ pitting pedal edema Lymphatic system: No lymphadenopathy appreciated
[2016-11-22] MEDS ORDERED: *HR* Rivaroxaban 15 MG TABLET PO SCH (09:00)
--- NOTE | 2016-11-22 09:04 | Cardiology Progress Note ---
Date of Encounter: 11/22/16 Time of Encounter: 08:30 Assessment and Plan (1) Atrial fibrillation with RVR Current Visit: Yes Status: Acute Known hx of Paroxysmal A-Fib, anticoagulated on Xarelto. Dyspnea/palpitations started 3-4 days ago. Previously on amiodarone, stopped due to pulmonary toxicity. Pt is on Lopressor 50mg BID and cardizem 240 mg daily currently and at home. Echo EF 50%, moderate valvular disease, severely dilated left atrium. [facility] 04/2010 minimal CAD. s/p successful DCCV to NSR on 11/21/16 after 3rd attempt using 300J. ECG upon admission: Afib HR 100 QRS 77 QT/QTc 350,407 ms. ECG 11/18/16: Afib HR 98 QRS 86 QT/QTc 371,426 ms ECG 11/19/16: Afib HR 84 QRS 88 QT/QTc 380,421 ms ECG 11/20/16: Afib HR 96 QRS QT/QTc 381,434 ms ECG 11/22/16: (s/p CV) HR 69 QRS 87 ms QT/QTc 408/427 ms Continue Xarelto for AC, sotalol 80 mg BID, and cardizem 180 mg daily. Recommend outpatient follow-up with Pulmonology (has followed with Dr. Fenton in the past). Follow-up with [facility] in 2-3 weeks, will arrange for outpatient follow -up. (2) Congestive heart failure Current Visit: Yes Status: Chronic Dypsnea likely secondary to RVR. Clinically appears euvolemic upon exam, CTA negative for acute process. Continue home medications. Qualifiers: Congestive heart failure type: diastolic Congestive heart failure chronicity: chronic Qualified Code(s): I50.32 - Chronic diastolic (congestive ) heart failure Discussion w patient/family: The assessment and plan as outlined above was discussed with the patient and/or family members who expressed understanding and agreement. All questions were answered. Thank you for involving us in the care of your patient. Please call with any questions. The patient was discussed and reviewed with Dr. White; Cardiology will sign-off, will coordinate appt in the outpatient setting. Subjective Principal diagnosis: Afib Interval history: Seen and examined. s/p successful DCCV 11/21/16, converted to NSR on 3rd attempt using 300 J. No complaints overnight, SR upon exam. Objective Vital Signs, Last 4 Hours Temp Pulse Resp BP Pulse Ox 11/22/16 08:28 98.4 F 58 18 102/79 95 General: Conversant, No Apparent Distress HEENT: Atraumatic, Normocephaly, Mucus Membranes Moist Cardiac: Reg Rate and Rhythm, Normal S1 and S2 Lungs: Normal Breath Sounds Neuro: Alert and responsive Abdomen: Soft Skin: No rashes noted on visualized skin Musculoskeletal: No Chest Wall Tenderness Extremities: Normal Pulses, Other (mild BLE edema) Results 11/22/16 04:43 11/22/16 04:43 Lab Results 11/22/16 11/22/16 04:43 04:43 WBC 7.0 Hgb 12.6 Hct 39.0 Plt Count 188 Sodium 142 Potassium 3.6 Chloride 104 Carbon Dioxide 32 H BUN 22 H Creatinine 0.73 Glucose 94 Calcium 9.2 Active Medications Acetaminophen (Tylenol) 650 mg PO Q6HR PRN PRN Reason: Mild Pain (1-3) Stop: 05/18/17 19:41 Aspirin (Aspirin Ec) 81 mg PO DAILY LENIN Stop: 05/19/17 09:01 Last Admin: 11/21/16 07:41 Dose: 81 mg Budesonide/Formoterol Fumarate (Symbicort) 2 puff IH BIDRESP LENIN PRN Reason: Protocol Stop: 05/20/17 10:01 Last Admin: 11/21/16 21:42 Dose: 2 puff Diltiazem HCl (Cardizem Cd) 180 mg PO DAILY LENIN Stop: 05/22/17 10:01 Last Admin: 11/21/16 07:40 Dose: 180 mg Furosemide (Lasix) 40 mg PO BIDDIURETIC LENIN Stop: 05/21/17 08:01 Last Admin: 11/21/16 18:04 Dose: 40 mg Gabapentin (Neurontin) 300 mg PO TID LENIN Stop: 05/18/17 21:01 Last Admin: 11/21/16 20:39 Dose: 300 mg Levalbuterol HCl (Xopenex) 1.25 mg IH [id number] LENIN Stop: 05/20/17 10:52 Last Admin: 11/22/16 03:45 Dose: 1.25 mg Naloxone HCl (Narcan) 0.4 mg IVP Q2MIN PRN PRN Reason: Opioid Reversal Stop: 05/18/17 19:41 Potassium Chloride (Potassium Chloride) 20 meq PO BID [facility] Stop: 05/19/17 11:01 Last Admin: 11/21/16 20:39 Dose: 20 meq Prednisone (Prednisone) 30 mg PO DAILY [facility] PRN Reason: Taper Stop: 11/27/16 14:28 Rivaroxaban (Xarelto) 20 mg PO 0900 [facility] Stop: 05/20/17 17:01 Sotalol HCl (Betapace) 80 mg PO Q12HR [facility] Stop: 05/19/17 18:01 Last Admin: 11/22/16 05:47 Dose: 80 mg - Imaging and Cardiology Echo: report reviewed Other Results: 12 hour: avg HR=55 SB. No PAF noted. - EKG Interpretation EKG results cardiology: personally reviewed Consult Discharge Plan - Plan Referrals: Martinez Liang DO [Partnered Physician] - Mello Mc MD [Primary Care Provider] - 11/28/16 11:00 am Prescriptions: Sotalol [Betapace] 80 mg PO Q12HR #120 tablet Diltiazem CD (24hr) [Cardizem CD] 180 mg PO DAILY #30 cap.er.24h
[2016-11-22] MEDS: Budesonide/Formoterol 160/4.5 MDI IH SCH (09:09)
[2016-11-22] MEDS ORDERED: *HR* Rivaroxaban 10 MG TABLET PO SCH (10:00)
[2016-11-22] MEDS: Furosemide 40 MG TABLET PO SCH (10:03)
[2016-11-22] MEDS: Gabapentin 300 MG CAPSULE PO SCH (10:03)
[2016-11-22] MEDS: Aspirin Enteric Coated 81 MG Tablet PO SCH (10:03)
[2016-11-22] MEDS: Diltiazem CD (24hr) 180 MG CAPSULE PO SCH (10:03)
--- NOTE | 2016-11-22 11:56 | Physician Discharge Referral ---
Home Health/Hosp Referral Info Transfer to: Home Health Attending Provider: Dr. Masoud Lambert Provider in Charge Post Discharge: PCP - Diagnosis (1) Atrial fibrillation Priority: Primary Status: Chronic (2) Respiratory failure Priority: Secondary Status: Chronic (3) Congestive heart failure (CHF) Priority: Secondary Status: Chronic (4) Interstitial lung disease Priority: Secondary Status: Chronic (5) Hypertension Priority: Secondary Status: Acute - Respiratory Orders Oxygen / L per min (2) Smoking Cessation: Smoking cessation has been advised. For more information, call the [place] Tobacco Quit Line at 3-756-TEMM-NOW. - Diet/Nutrition Diet/Nutrition Orders: No Added Salt (ISI), Cardiac - Activity Activity Orders: Up ad morgan, Ambulate - Services Needed Following services are medically necessary services: Physical Therapy, Occupational Therapy - Transfer Medications Prescriptions: Sotalol [Betapace] 80 mg PO Q12HR #120 tablet Diltiazem CD (24hr) [Cardizem CD] 180 mg PO DAILY #30 cap.er.24h Home Medications: Aspirin [Adult Low Dose Aspirin EC] 81 mg PO DAILY 07/24/15 [History] Gabapentin [Neurontin] 300 mg PO TID 07/24/15 [History] Niacin [Niaspan] 500 mg PO HS 07/24/15 [History] Rivaroxaban [Xarelto] 20 mg PO DAILY #30 tablet 07/27/15 [Rx] Multivit/Ca/Min/Fe/FA [Thera M Plus] 1 tab PO DAILY tablet 08/06/15 [Rx] Furosemide [Lasix] 40 mg PO BID 08/11/15 [History] Nystatin Cream [Mycostatin Cream] 1 appl TP TID PRN 10/31/16 [History] Oxygen 2 l NS CONT 10/31/16 [History] Potassium Chloride [K-Tab ER] 20 meq PO BID 10/31/16 [History] Levalbuterol Neb [Xopenex Neb] 0.63 mg IH BID 11/16/16 [History] Diltiazem CD (24hr) [Cardizem CD] 180 mg PO DAILY #30 cap.er.24h 11/22/16 [Rx] Sotalol [Betapace] 80 mg PO Q12HR #120 tablet 11/22/16 [Rx] Allergies/Adverse Reactions: Allergies amiodarone Adverse Reaction (Verified 11/17/16 12:20) pulmonary toxicity Cyclobenzaprine [From Flexeril] Adverse Reaction (Verified 07/24/15 19:41) Hallucinating fenofibrate [From Tricor] Adverse Reaction (Verified 07/24/15 19:41) Muscle Pain Ufunmny-Hoa-Zrk Reductase Inhibitor [Statins] Adverse Reaction (Verified 17:51) Muscle Pain tramadol [From Ultram] Adverse Reaction (Verified 07/24/15 19:41) Itching Certification: Further, I certify that my clinical findings support that this patient is homebound (i.e. absences from home require considerable and taxing effort and are for medical reasons or jain services or infrequently or short duration when for other reasons) because: Homebound Reason: Patient requires assistance of a person or device to safely leave home, Leaving home requires considerable and taxing effort due to condition Attestation: My signature below is to certify that this patient is under my care and that I, or nurse practitioner, or a physician's senior court office assistant working with me, has a face-to -face encounter with this patient.
--- NOTE | 2016-11-22 16:08 | Electrocardiograph Report ---
[place] [address] Test Date: 2016-11-21 Pat Name: Delores Bacon Department: 111 Room: [facility] Gender: F Event Av Operator: JOVANI : 1940 Requested By: Yarelis Saeed Order Number: [id number] Reading MD: Daquan Perez Measurements Intervals [place] Rate: 114 P: UT: 0 QRS: 12 QRSD: 80 T: -60 QT: 270 QTc: 337 Interpretive Statements ATRIAL FIBRILLATION WITH RAPID VENTRICULAR RESPONSE NONSPECIFIC ST \T\ T-WAVE ABNORMALITY Electronically Signed On 11-22-2016 16:07:11 EDT by Daquan Perez
--- NOTE | 2016-11-22 16:09 | Electrocardiograph Report ---
[place] [address] Test Date: 2016-11-21 Pat Name: Delores Bacon Department: 111 Room: [facility] Gender: F Slicing Machine Tender: [id number] : 1940 Requested By: Manda Villalba Order Number: [id number] Reading MD: Daquan Perez Measurements Intervals [place] Rate: 104 P: SC: 0 QRS: 18 QRSD: 85 T: 30 QT: 364 QTc: 424 Interpretive Statements ATRIAL FIBRILLATION WITH RAPID VENTRICULAR RESPONSE WITH ABERRANT CONDUCTION OR VENTRICULAR PREMATURE COMPLEXES NONSPECIFIC ST \T\ T-WAVE ABNORMALITY ABNORMAL RHYTHM ECG Electronically Signed On 11-22-2016 16:07:56 EDT by Daquan Perez
--- NOTE | 2016-11-22 16:40 | Electrocardiograph Report ---
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
--- NOTE | 2016-11-22 16:40 | Electrocardiograph Report ---
[address] [address] Test Date: 2016-11-22 Pat Name: Delores Bacon Department: 111 Room: 2N5 Gender: F Glove Brusher: [facility] : 1940 Requested By: Yarelis Saeed Order Number: [id number] Reading MD: Daquan Perez Measurements Intervals [place] Rate: 59 P: 78 OR: 136 QRS: 21 QRSD: 89 T: 5 QT: 456 QTc: 456 Interpretive Statements SINUS BRADYCARDIA LEFT VENTRICULAR HYPERTROPHY AND ST-T CHANGE Electronically Signed On 11-22-2016 16:38:10 EDT by Daquan Perze
== END 2016-11-22 12:18 | disposition home health service (06) | DRG 309 ==
LOC: EMEROO 13:37 → 2NENU 13:37 → SUATTDRO 19:40
PROVIDERS: ADMIT Registered Nurse; ATTEND Internal Medicine

== ENCOUNTER 2018-10-31 23:52 | Observation (INO) ==
[2018-11-01] MEDS ORDERED: *HR* OxyCODONE Immed Rel 5 MG TABLET PO ONE (00:11)
--- NOTE | 2018-11-01 01:18 | Emergency Department Note ---
Disposition Clinical Impression: Fracture of femoral condyle, right, closed Qualifiers: Encounter type: initial encounter Fracture alignment: nondisplaced Qualified Code(s): S72.414A - Nondisplaced unspecified condyle fracture of lower end of right femur, initial encounter for closed fracture Fall Qualifiers: Encounter type: initial encounter Qualified Code(s): W19.XXXA - Unspecified fall, initial encounter Disposition: Admitted As Inpatient Condition: Good Referrals: Juventino Carlisle MD [Primary Care Provider] - Forms: ED Satisfaction Letter Time of Disposition: : Fall HPI - General Chief Complaint: ED Fall Stated Complaint: fall knee pain Time Seen by Provider: 11/01/18 00:08 Source: patient, family (), EMS Mode of arrival: EMS Limitations: no limitations Nursing Notes Reviewed: Yes Vital Signs Reviewed: Yes - History of Present Illness HPI Narrative: 78-year-old female history of atrial fibrillation on Xarelto and history of bilateral knee replacement presents to the emergency department via EMS for fall and right knee pain. Prior to arrival patient was walking and experienced a mechanical fall. She tripped and fell to her right side and struck the right side of her face on the stand. She denies loss of consciousness. Reports some mild right side neck pain. No visual changes. Denies any prodromal symptoms in states this was purely mechanical fall. She had immediate pain to the right knee was unable to get up. She required assistance of her and neighbor. She took Tylenol without any significant relief. Denies any other complaints at this time. Pt Subjective Complaint: fall - Related Data Home Medications Medication Instructions Recorded Confirmed Aspirin [Adult Low Dose Aspirin EC] 81 mg PO DAILY 07/24/15 11/01/18 Gabapentin [Neurontin] 300 mg PO BID 07/24/15 11/01/18 Niacin [Niaspan] 500 mg PO HS 07/24/15 11/16/16 Furosemide [Lasix] 40 mg PO ONCE 08/11/15 11/01/18 Nystatin Cream [Mycostatin Cream] 1 appl TP TID PRN 10/31/16 11/01/18 Oxygen 2 l NS CONT 10/31/16 11/01/18 Potassium Chloride [K-Tab ER] 20 meq PO BID 10/31/16 11/16/16 Levalbuterol Neb [Xopenex Neb] 0.63 mg IH BID 11/16/16 11/01/18 Rivaroxaban [Xarelto] 15 mg PO DAILY 11/01/18 11/01/18 Previous Rx's Medication Instructions Recorded Multivit/Ca/Min/Fe/FA [Thera M 1 tab PO DAILY tablet 08/06/15 Plus] Diltiazem CD (24hr) [Cardizem CD] 180 mg PO DAILY #30 cap.er.24h 11/22/16 Sotalol [Betapace] 80 mg PO Q12HR #120 tablet 11/22/16 Allergies Allergy/AdvReac Type Severity Reaction Status Date / Time amiodarone AdvReac pulmonary Verified 09/06/17 14:46 toxicity Cyclobenzaprine AdvReac Hallucinati Verified 09/06/17 14:46 [From Flexeril] ng fenofibrate [From Tricor] AdvReac Muscle Pain Verified 09/06/17 14:46 [id number] Reductase AdvReac Muscle Pain Verified 09/06/17 14:46 Inhibitor [Statins] tramadol [From Ultram] AdvReac Itching Verified 09/06/17 14:46 All systems ED: reviewed and negative except as stated. Review of Systems: As Per HPI Constitutional: Denies: fever Cardiovascular: Denies: chest pain Gastrointestinal: Denies: abdominal pain Musculoskeletal: Reports: neck pain, arthralgia. Denies: back pain Neurological: Denies: headache, weakness, numbness Fall PMH - Past Medical History Medical history: Reports: arthritis, asthma, atrial fibrillation, CHF, hyperlipidemia, hypertension, myocardial infarction, osteoporosis, pulmonary embolus, syncope, valvular heart disease Surgical history: Reports: cataract, cholecystectomy, knee replacement, other Psychiatric history: Reports: anxiety, depression - Social History Smoking Status: Never smoker Alcohol use: Reports: none Drug use: Reports: none Physical Exam - General Limitations: no limitations General appearance: alert, in no apparent distress - Head Head exam: normocephalic, normal inspection - Expanded Head Exam Head exam physicial: Present: abrasion (Right cheek), contusion (Right cheek). Absent: raccoon eyes, Monte's sign - Eye Eye exam: Present: normal appearance, PERRL, EOMI - ENT ENT exam: normal exam, normal oropharynx, mucous membranes moist, TM's normal bilaterally - Expanded ENT Exam External ear exam: Present: normal external inspection TM/Canal: Hemotympanum: Negative Mouth exam: Present: normal external inspection Teeth exam: Present: normal inspection Throat exam: Present: normal inspection - Neck Neck exam: Present: normal inspection, full ROM, trachea midline, tenderness - Expanded Neck Exam Neck exam focused ED: Present: paraspinal tenderness. Absent: midline tenderness - Chest Chest inspection: Present: normal inspection, symmetric chest wall rise. Absent: tenderness - Respiratory Respiratory exam: Present: normal lung sounds bilaterally. Absent: respiratory distress, wheezes - Cardiovascular Cardiovascular exam: Present: regular rate, normal rhythm, normal heart sounds - Expanded Cardiovascular Exam Peripheral pulses: 2+: radial (R), radial (L), dorsalis pedis (R), dorsalis pedis (L) - Abdominal Exam Abdominal exam: Present: soft, Non-Tender, normal bowel sounds. Absent: tenderness, distention, guarding, rebound, rigidity - Expanded Lower Extremity Exam Hip/Pelvis exam: Present: tenderness (Right hip), pelvis stable. Absent: full ROM (Limited due to pain), internal rotation, shortening Upper leg exam: Present: tenderness (Right upper leg). Absent: full ROM (Limited due to pain), deformity Knee exam: Present: tenderness (Inside of the knee (medial)), swelling (Right knee), ecchymosis, knee extension intact, other (Bilateral knee scars from prior replacement). Absent: full ROM (Limited to due to pain), deformity, dislocation Lower leg exam: Present: normal inspection, full ROM Ankle exam: Present: normal inspection, full ROM Foot/toe exam: Present: normal inspection, full ROM Neurovascular/Tendon exam: Present: normal capillary refill. Absent: pulse deficit, motor deficit, sensory deficit, tendon deficit - Back Exam Back exam: Present: normal inspection, full ROM. Absent: tenderness - Neurological Exam Neurological exam: Present: alert, oriented X3 - Psychiatric Psychiatric exam: Present: normal affect, normal mood - Skin Skin exam: Present: warm, dry, intact, normal color. Absent: rash, cyanosis, diaphoresis - Expanded Skin Exam Type of lesion: Present: abrasion (Right face) Course Course Narrative: Patient presents with mechanical fall. Pain to the right knee and close head injury. She is on Xarelto. At this time will obtain plain films of the right lower extremity and CT of the head and neck. Oxycodone for pain at this time. - Reevaluation(s) Reevaluation #1: X-ray of the right knee shows a nondisplaced medial femoral condyle fracture. Patient's pain is controlled however any slight movement of her right knee brings excruciating pain. Her CT of the head and cervical spine is unre markable. There is some mastoid effusion noted but she has no fluctuance erythema or fevers or discomfort to the area. At this time will admit the patient for pain control as she cannot ambulate or move. Orthopedic surgery has been consulted. - Consultations Consultation #1: Spoke to the on-call orthopedic surgeon Dr. Shelton who agrees with the plan for a dmission to the hospitalist with consultation. No immediate surgical intervention at this time. Recommend to continue pain control regimen and knee immobilizer. No PEDRO wrap at this time Time: 03:27 Consultation #2: Spoke with on-call hospitalist reji López to admit for right medial femoral condylar fracture. Requesting basic labs Time: 03:27 Vital Signs Temperature 97.7 F 10/31/18 23:57 Pulse Rate 70 10/31/18 23:57 Respiratory Rate 16 10/31/18 23:57 Blood Pressure 172/67 10/31/18 23:57 O2 Sat by Pulse Oximetry 93 10/31/18 23:57 Temperature 97.7 F 10/31/18 23:57 Pulse Rate 63 11/01/18 04:08 Respiratory Rate 16 11/01/18 04:08 Blood Pressure 160/66 11/01/18 04:08 O2 Sat by Pulse Oximetry 93 11/01/18 04:08 Oxygen Delivery Oxygen Delivery Nasal Cannula Fall - MDM Narrative Medical decision making narrative: Patient was discussed with my attending physician who agrees with ED management and final disposition. They independently evaluated the patient. Please refer to their attestation to this encounter for additional information. This note was generated by [employer] voice recognition software and as a result grammatical or spelling errors may occur using this program. - Medical Records Medical records reviewed: Yes I reviewed the patient's medical records. - Lab Data Result diagrams: 11/01/18 04:21 Lab Results 11/01/18 Range/Units 04:21 WBC 9.8 (4.3-11.1) K/mcL RBC 4.45 (3.82-4.97) M/mcL Hgb 13.8 (11.5-15.4) g/dL Hct 40.7 (35.3-44.9) % MCV 91.5 (83.0-100.0) fL MCH 31.0 (28.0-33.3) pg MCHC 33.9 (31.6-35.5) g/dL RDW 13.1 (11.5-14.5) % Plt Count 172 (140-400) K/mcL MPV 9.9 (9.4-12.4) fL Immature Gran % 0.3 (0-4) % Seg Neutrophils % 80.6 % Lymphocytes % 9.2 % Monocytes % 7.7 % Eosinophils % 2.1 % Basophils % 0.1 % Neutrophils # 7.9 (1.6-8.9) K/mcL Lymphocytes # 0.9 (0.6-4.6) K/mcL Monocytes # 0.8 (0.0-1.3) K/mcL Eosinophils # 0.2 (0.0-0.6) K/mcL Basophils # 0.0 (0.0-0.2) K/mcL - Radiology Data Radiology results reviewed: Yes I reviewed the patient's radiology results. Cervical Spine CT 11/01/18 00:10 IMPRESSION: No acute abnormality of the cervical spine. Bilateral mastoid opacification/disease. Correlate clinically for signs of infection. D/ / Jovan Dill MD / Jovan iDll MD Interpreting Provider: Jovan Dill MD Femur X-Ray 11/01/18 00:10 IMPRESSION: Osteopenia limits assessment. Mild degenerative changes. No acute fracture or dislocation. RECOMMENDATION: Follow-up studies are advised should symptoms persist. Consideration may be given to multi planer imaging. D/ / Lydia Estrada MD / Lydia Estrada MD Interpreting Provider: Lydia Estrada MD Head CT 11/01/18 00:10 IMPRESSION: No acute intracranial abnormality. Bilateral mastoid disease/opacification, right greater than left. Correlate for signs of acute infection. D/ / Jovan Dill MD / Jovan Dill MD Interpreting Provider: Jovan Dill MD Knee X-Ray 11/01/18 00:10 IMPRESSION: A nondisplaced periprosthetic fracture is suspected involving the [place] medial femoral condyle. Small fat/hemorrhage level in the suprapatellar bursa. D/ / Jovan Dill MD / Jovan Dill MD Interpreting Provider: Jovan Dill MD Pelvis X-Ray 11/01/18 00:10 IMPRESSION: No obvious acute displaced fracture. If high clinical concern for fracture persists then pelvic CT may be helpful for further evaluation as warranted. D/ / Tevin Zaragoza / Tevin Zaragoza Interpreting Provider: Tevin Zaragoza
[2018-11-01] MEDS ORDERED: *HR* FentaNYL (PF) 100 MCG/2 ML VIAL IVP ONE (03:24)
--- NOTE | 2018-11-01 04:12 | Emergency Department Note ---
Disposition Clinical Impression: Fracture of femoral condyle, right, closed Qualifiers: Encounter type: initial encounter Fracture alignment: nondisplaced Qualified Code(s): S72.414A - Nondisplaced unspecified condyle fracture of lower end of right femur, initial encounter for closed fracture Fall Qualifiers: Encounter type: initial encounter Qualified Code(s): W19.XXXA - Unspecified fall, initial encounter Disposition: Admitted As Inpatient Condition: Good Time of Disposition: 03:29 General Adult HPI - General Chief complaint: ED Fall Stated complaint: fall knee pain Time Seen by Provider: 11/01/18 00:08 Source: patient, family (), EMS Mode of arrival: EMS Limitations: no limitations Nursing Notes Reviewed: Yes Vital Signs Reviewed: Yes - History of Present Illness Pain Scale: 0 - Related Data Home Medications Medication Instructions Recorded Confirmed Aspirin [Adult Low Dose Aspirin EC] 81 mg PO DAILY 07/24/15 11/01/18 Gabapentin [Neurontin] 300 mg PO BID 07/24/15 11/01/18 Niacin [Niaspan] 500 mg PO HS 07/24/15 11/16/16 Furosemide [Lasix] 40 mg PO ONCE 08/11/15 11/01/18 Nystatin Cream [Mycostatin Cream] 1 appl TP TID PRN 10/31/16 11/01/18 Oxygen 2 l NS CONT 10/31/16 11/01/18 Potassium Chloride [K-Tab ER] 20 meq PO BID 10/31/16 11/16/16 Levalbuterol Neb [Xopenex Neb] 0.63 mg IH BID 11/16/16 11/01/18 Rivaroxaban [Xarelto] 15 mg PO DAILY 11/01/18 11/01/18 Previous Rx's Medication Instructions Recorded Multivit/Ca/Min/Fe/FA [Thera M 1 tab PO DAILY tablet 08/06/15 Plus] Diltiazem CD (24hr) [Cardizem CD] 180 mg PO DAILY #30 cap.er.24h 11/22/16 Sotalol [Betapace] 80 mg PO Q12HR #120 tablet 11/22/16 Allergies Allergy/AdvReac Type Severity Reaction Status Date / Time amiodarone AdvReac pulmonary Verified 09/06/17 14:46 toxicity Cyclobenzaprine AdvReac Hallucinati Verified 09/06/17 14:46 [From Flexeril] ng fenofibrate [From Tricor] AdvReac Muscle Pain Verified 09/06/17 14:46 [id number] Reductase AdvReac Muscle Pain Verified 09/06/17 14:46 Inhibitor [Statins] tramadol [From Ultram] AdvReac Itching Verified 09/06/17 14:46 Constitutional: Denies: fever Cardiovascular: Denies: chest pain Gastrointestinal: Denies: abdominal pain Musculoskeletal: Reports: neck pain, arthralgia. Denies: back pain Neurological: Denies: headache, weakness, numbness Past Medical History - Past Medical History Medical history: Reports: arthritis, asthma, atrial fibrillation, CHF, hyperlipidemia, hypertension, myocardial infarction, osteoporosis, pulmonary embolus, syncope, valvular heart disease Surgical history: Reports: cataract, cholecystectomy, knee replacement, other Psychiatric history: Reports: anxiety, depression - Social History Smoking Status: Never smoker Smokeless Tobacco Status: No Alcohol use: Reports: none Drug use: Reports: none Physical Exam - General Limitations: no limitations General appearance: alert, in no apparent distress Course Vital Signs Temperature 97.7 F 10/31/18 23:57 Pulse Rate 70 10/31/18 23:57 Respiratory Rate 16 10/31/18 23:57 Blood Pressure 172/67 10/31/18 23:57 O2 Sat by Pulse Oximetry 93 10/31/18 23:57 Temperature 97.7 F 10/31/18 23:57 Pulse Rate 63 11/01/18 04:08 Respiratory Rate 18 11/01/18 05:15 Blood Pressure 151/59 11/01/18 05:15 O2 Sat by Pulse Oximetry 93 11/01/18 04:08 Oxygen Delivery Oxygen Delivery Nasal Cannula Medical Decision Making - Lab Data Lab results reviewed: Yes I reviewed the patient's lab results. Result diagrams: 11/01/18 04:21 11/01/18 04:21 Lab Results 11/01/18 11/01/18 11/01/18 Range/Units 04:21 04:21 04:21 WBC 9.8 (4.3-11.1) K/mcL RBC 4.45 (3.82-4.97) M/mcL Hgb 13.8 (11.5-15.4) g/dL Hct 40.7 (35.3-44.9) % MCV 91.5 (83.0-100.0) fL MCH 31.0 (28.0-33.3) pg MCHC 33.9 (31.6-35.5) g/dL RDW 13.1 (11.5-14.5) % Plt Count 172 (140-400) K/mcL MPV 9.9 (9.4-12.4) fL Immature Gran % 0.3 (0-4) % Seg Neutrophils % 80.6 % Lymphocytes % 9.2 % Monocytes % 7.7 % Eosinophils % 2.1 % Basophils % 0.1 % Neutrophils # 7.9 (1.6-8.9) K/mcL Lymphocytes # 0.9 (0.6-4.6) K/mcL Monocytes # 0.8 (0.0-1.3) K/mcL Eosinophils # 0.2 (0.0-0.6) K/mcL Basophils # 0.0 (0.0-0.2) K/mcL PT 13.7 H (9.4-12.1) Seconds INR 1.2 APTT 35.8 (26.0-36.0) Seconds Sodium 143 (136-145) mEq/L Potassium 4.1 (3.5-5.1) mEq/L Chloride 104 (98-107) mEq/L Carbon Dioxide 28 (23-29) mEq/L BUN 11 (8-23) mg/dL Creatinine 0.59 L (0.60-1.20) mg/dL Est GFR ( Amer) > 60 (> 60) Est GFR (Non-Af Amer) > 60 (> 60) BUN/Creatinine Ratio 19 (6-26) Glucose 121 H (70-105) mg/dL Calculated Osmolality 297 (280-300) Calcium 9.0 (8.6-10.3) mg/dL - Radiology Data Radiology results reviewed: Yes I reviewed the patient's radiology results. Cervical Spine CT 11/01/18 00:10 IMPRESSION: No acute abnormality of the cervical spine. Bilateral mastoid opacification/disease. Correlate clinically for signs of infection. D/ / Jovan Dill MD / Jovan Dill MD Interpreting Provider: Jovan Dill MD Femur X-Ray 11/01/18 00:10 IMPRESSION: Osteopenia limits assessment. Mild degenerative changes. No acute fracture or dislocation. RECOMMENDATION: Follow-up studies are advised should symptoms persist. Consideration may be given to multi planer imaging. D/ / Lydia Estrada MD / Lydia Estrada MD Interpreting Provider: Lydia Estrada MD Head CT 11/01/18 00:10 IMPRESSION: No acute intracranial abnormality. Bilateral mastoid disease/opacification, right greater than left. Correlate for signs of acute infection. D/ / Jovan Dill MD / Jovan Dill MD Interpreting Provider: Jovan Dill MD Knee X-Ray 11/01/18 00:10 IMPRESSION: A nondisplaced periprosthetic fracture is suspected involving the [place] medial femoral condyle. Small fat/hemorrhage level in the suprapatellar bursa. D/ / Jovan Dill MD / Jovan Dill MD Interpreting Provider: Jovan Dill MD Pelvis X-Ray 11/01/18 00:10 IMPRESSION: No obvious acute displaced fracture. If high clinical concern for fracture persists then pelvic CT may be helpful for further evaluation as warranted. D/ / Tevin Zaragoza / Tevin Zaragoza Interpreting Provider: Tevin Zaragoza Attestation Statement - Attestation Attestation: I, Valente Delacruz MD, personally evaluated this patient and discussed their management with the resident physician. I reviewed the resident's note and agree with the documented findings, medical decision making, and plan of care. 78-year-old female persisted emergency department by EMS with a complaint of right knee pain after she tripped and fell going into her house. She tripped over the door she was entering. She did strike her face on a table and has a bruise to the right cheek. She denies any loss of consciousness. She also has a bruise to the left forearm. She has a history of bilateral total knee arthroplasties more than 20 years ago. She only complains of pain in the right knee. On examination patient is a well-developed obese elderly female in no acute distress. She is alert and oriented 3. There is no cyanosis or diaphoresis. There is a contusion with some ecchymosis to the right cheek area. No significant swelling. She also has some abrasion and ecchymosis to the distal left forearm. Full range of motion of the wrist and elbow. Neurovascular function intact distally. Breath sounds are equal bilaterally. Heart regular rate and rhythm. Abdomen soft and nontender with normal bowel sounds. There is some mild ecchymosis to the inferior anterior right knee. There is diffuse swelling of the right knee with marked tenderness to palpation. Range of motion limited secondary to pain. Neurovascular function intact distally. Also appears to be some tenderness over the right femur and right hip. CT of the head and cervical spine was negative. X-ray of the pelvis, right femur, and right knee shows a nondisplaced fracture of the medial condyle of the distal femur. Labs reviewed. Dr. Harrell discussed this with the orthopedist adult education teacher, Dr. Shelton. He felt this was likely a nonsurgical fracture but did recommend admission for pain control and will consult on the patient. The hospitalist, Dr. Ugalde, was consulted and accepted admission of the patient.
[2018-11-01 04:33] LABS: Basophils % 0.1 %; Eosinophils # 0.2 K/mcL (0.0-0.6); Eosinophils % 2.1 %; Hematocrit 40.7 % (35.3-44.9); Hemoglobin 13.8 g/dL (11.5-15.4); Immature Granulocytes % 0.3 % (0-4); Lymphocytes # 0.9 K/mcL (0.6-4.6); Lymphocytes % 9.2 %; Mean Corpuscular HGB Conc 33.9 g/dL (31.6-35.5); Mean Corpuscular Volume 91.5 fL (83.0-100.0); Mean Platelet Volume 9.9 fL (9.4-12.4); Monocytes # 0.8 K/mcL (0.0-1.3); Monocytes % 7.7 %; Neutrophils # 7.9 K/mcL (1.6-8.9); Platelet Count 172 K/mcL (140-400); Red Blood Count 4.45 M/mcL (3.82-4.97); Red Cell Distribution Width 13.1 % (11.5-14.5); Segmented Neutrophils % 80.6 %; White Blood Count 9.8 K/mcL (4.3-11.1)
[2018-11-01 04:45] LABS: INR 1.2; Prothrombin Time 13.7 Seconds (9.4-12.1)
[2018-11-01 04:47] LABS: Activated Partial Thrombo Time 35.8 Seconds (26.0-36.0)
[2018-11-01 04:58] LABS: BUN/Creatinine Ratio 19 (6-26); Blood Urea Nitrogen 11 mg/dL (8-23); Carbon Dioxide 28 mEq/L (23-29); Chloride 104 mEq/L (98-107); Glucose 121 mg/dL (70-105); Osmolality,Calculated 297 (280-300); Potassium 4.1 mEq/L (3.5-5.1); Sodium 143 mEq/L (136-145); eGFR For African Americans > 60 (> 60); eGFR For Non-African Americans > 60 (> 60)
[2018-11-01] MEDS ORDERED: Naloxone 0.4 MG/ML INJ IVP PRN (07:30)
[2018-11-01] MEDS ORDERED: *HR* FentaNYL (PF) 100 MCG/2 ML VIAL IVP PRN (07:34)
[2018-11-01] MEDS ORDERED: NON-FORMULARY MEDICATION 1 EACH EACH (Oxygen 2 L) NS SCH (07:45)
[2018-11-01] MEDS ORDERED: Levalbuterol Neb 0.63 MG/3 ML ONE (07:48)
[2018-11-01] MEDS: Levalbuterol Neb 0.63 MG/3 ML IH SCH ×2 (07:56→20:00)
[2018-11-01] MEDS: Multivit/Ca/Min/Fe/FA 1 TAB TABLET PO SCH (14:54)
[2018-11-01] MEDS: Gabapentin 300 MG CAPSULE PO SCH ×2 (14:54→20:18)
--- NOTE | 2018-11-01 16:39 | Internal Med History&Physical ---
Date of Encounter: 11/01/18 Time of Encounter: 09:00 Internal Medicine - H&P: HPI Chief complaint: s/p fall with fracture of right knee prosthesis History of present illness: Ms. Bacon is a 78 year old female with pmh of bilateral knee replacement, atrial fibrillation on xarelto, hypertension, PE, osteoporosis presenting with complaints of tripping and falling last night. Patient says she was standing on the porch of the house and walked back into the house when she tripped and fell and landed on her right knee. She immediately felt excruciating pain and called her for help who was unable to get her up. She was finally able to get up with the help of her neighbors and called EMS to bring her to the hospital. Prior to this episode, she was at her usual state of health and had no acute complaints In the ER, she was noted to have a non displaced fracture of the medial condyle of the distal femur. Orthopedic surgery was consulted and she is being admitted for further management Past Med Surg Social Fam HX - Past Medical History Medical history: arthritis, asthma, atrial fibrillation, CHF, hyperlipidemia, hypertension, myocardial infarction, osteoporosis, pulmonary embolus, syncope, valvular heart disease Additional medical history: PE in 1985 Psychiatric history: anxiety, depression - Past Surgical History Surgical History: knee replacement Additional surgical history: BACK SURGERY - Social History Smoking Status: Never smoker Smokeless Tobacco Status: No Alcohol use: none Drug use: none - Family History Son Family Member Ethnicity: Non- Living Status: Still Living Hx Family Cardiac Disorders: Yes ([place], AFIB) Hx Family Endocrine Disorder: Yes (DM) Mother Living Status: Hx Family Cardiac Disorders: Yes (mother) Hx Family Cancer: Yes (sister) Internal Medicine - H&P: Meds Aspirin [Adult Low Dose Aspirin EC] 81 mg PO DAILY 07/24/15 [History] Gabapentin [Neurontin] 300 mg PO BID 07/24/15 [History] Niacin [Niaspan] 500 mg PO HS 07/24/15 [History] Multivit/Ca/Min/Fe/FA [Thera M Plus] 1 tab PO DAILY tablet 08/06/15 [Rx] Furosemide [Lasix] 40 mg PO ONCE 08/11/15 [History] Nystatin Cream [Mycostatin Cream] 1 appl TP TID PRN 10/31/16 [History] Oxygen 2 l NS CONT 10/31/16 [History] Potassium Chloride [K-Tab ER] 20 meq PO BID 10/31/16 [History] Levalbuterol Neb [Xopenex Neb] 0.63 mg IH BID 11/16/16 [History] Diltiazem CD (24hr) [Cardizem CD] 180 mg PO DAILY #30 cap.er.24h 11/22/16 [Rx] Sotalol [Betapace] 80 mg PO Q12HR #120 tablet 11/22/16 [Rx] Rivaroxaban [Xarelto] 15 mg PO DAILY 11/01/18 [History] Allergy/AdvReac Type Severity Reaction Status Date / Time amiodarone AdvReac pulmonary Verified 09/06/17 14:46 toxicity Cyclobenzaprine AdvReac Hallucinati Verified 09/06/17 14:46 [From Flexeril] ng fenofibrate [From Tricor] AdvReac Muscle Pain Verified 09/06/17 14:46 Xbsnuqj-Zrg-Tcj Reductase AdvReac Muscle Pain Verified 09/06/17 14:46 Inhibitor [Statins] tramadol [From Ultram] AdvReac Itching Verified 09/06/17 14:46 All Systems PM: A 10-system review of systems was performed and is negative for pertinent findings except as documented above in the HPI. - Constitutional Constitutional: no chills, no fever(s), no night sweats - EENT Eyes: no change in vision, no discharge, no pain, no photophobia Ears: no ear discharge, no ear pain, no tinnitus Nose, mouth and throat: no dysphagia, no nasal discharge, no neck pain, no sore throat - Cardiovascular Cardiovascular ROS IM: no chest pain, no diaphoresis, no dyspnea, no lightheadedness, no palpitations, no syncope - Respiratory Respiratory: no cough, no dyspnea, no wheezing, no excessive phlegm production - Gastrointestinal Gastrointestinal: no abdominal pain, no diarrhea, no hematemesis, no hematochezia, no melena, no nausea, no vomiting - Genitourinary Genitourinary: no change in urinary stream, no dysuria, no flank pain, no hematuria - Musculoskeletal Musculoskeletal ROS IM: limited range of motion, no numbness, no tingling Additional comments: Right knee pain - Integumentary Integumentary IM: no rash, no unusual bruising - Neurological Neurological ROS: no confusion, no convulsions, no focal weakness, no numbness, no tingling, no tremor(s) - Hematologic/Lymphatic Hematologic/Lymphatic: no easy bruising - Constitutional Vitals: Temp Pulse Resp BP Pulse Ox 98.5 F 84 19 180/83 90 11/01/18 16:04 11/01/18 16:04 11/01/18 16:04 11/01/18 16:04 11/01/18 16:04 Exam: Moderate distress from knee pain - Head Head exam: Present: atraumatic, normocephalic - Eye Eye exam: Present: PERRL, conjuntiva pink, sclera anicteric Pupils: Present: PERRL - Neck Neck exam general surgery: Present: supple, trachea midline. Absent: lymphadenopathy - Respiratory Respiratory exam: Present: CTAB. Absent: accessory muscle use, rales, rhonchi, wheezes - Cardiovascular Cardiovascular exam: Present: RRR, +S1, +S2. Absent: diastolic murmur, gallop, rubs, systolic murmur - GI/Abdominal GI/Abdominal exam: Present: normal bowel sounds, soft, no peritoneal signs. Absent: distended, tenderness - Extremities Exam Extremities exam: Present: warm, radial pulses palpable and symmetrical. Absent: calf tenderness, cyanotic, pedal edema - Neurological Exam Neurological exam: Present: CN II-XII intact, oriented X3, no focal deficits. Absent: pronater drift, facial droop, speech deficit - Skin Skin exam: Present: dry, intact Internal Med - H&P Results - Labs CBC & Chem 7: 11/01/18 04:21 11/01/18 04:21 Labs: Short CBC 11/01/18 Range/Units 04:21 WBC 9.8 (4.3-11.1) K/mcL Hgb 13.8 (11.5-15.4) g/dL Hct 40.7 (35.3-44.9) % Plt Count 172 (140-400) K/mcL Neutrophils # 7.9 (1.6-8.9) K/mcL BMP 11/01/18 04:21 Sodium 143 Potassium 4.1 Chloride 104 Carbon Dioxide 28 BUN 11 Creatinine 0.59 L Glucose 121 H Calcium 9.0 - Impressions ITS Impressions Cervical Spine CT 11/01/18 00:10 IMPRESSION: No acute abnormality of the cervical spine. Bilateral mastoid opacification/disease. Correlate clinically for signs of infection. D/ / Jovan Dill MD / Jovan Dill MD Interpreting Provider: Jovan Dill MD Femur X-Ray 11/01/18 00:10 IMPRESSION: Osteopenia limits assessment. Mild degenerative changes. No acute fracture or dislocation. RECOMMENDATION: Follow-up studies are advised should symptoms persist. Consideration may be given to multi planer imaging. D/ / Lydia Estrada MD / Lydia Estrada MD Interpreting Provider: Lydia Estrada MD Head CT 11/01/18 00:10 IMPRESSION: No acute intracranial abnormality. Bilateral mastoid disease/opacification, right greater than left. Correlate for signs of acute infection. D/ / Jovan Dill MD / Jovan Dill MD Interpreting Provider: Jovan Dill MD Knee X-Ray 11/01/18 00:10 IMPRESSION: A nondisplaced periprosthetic fracture is suspected involving the [place] medial femoral condyle. Small fat/hemorrhage level in the suprapatellar bursa. D/ / Jovan Dill MD / Jovan Dill MD Interpreting Provider: Jovan Dill MD Pelvis X-Ray 11/01/18 00:10 IMPRESSION: No obvious acute displaced fracture. If high clinical concern for fracture persists then pelvic CT may be helpful for further evaluation as warranted. D/ / Tevin Sessions / Tevin Zaragoza Interpreting Provider: Tevin Zaragoza - Assessment and Plan (1) Fracture of femoral condyle, right, closed Current Visit: Yes Status: Acute Assessment and plan: Pt comes inn with femoral fracture s/p fall. Xray shows medial femoral condyle fracture Pain control. Orthopedic surgery consulted Qualifiers: Encounter type: initial encounter Fracture alignment: nondisplaced Qualified Code(s): S72.414A - Nondisplaced unspecified condyle fracture of lower end of right femur, initial encounter for closed fracture (2) Atrial fibrillation Current Visit: Yes Status: Chronic Assessment and plan: Hold xarelto for possible surgery. Continue rate control with sotalol Qualifiers: Atrial fibrillation type: paroxysmal Qualified Code(s): I48.0 - Paroxysmal atrial fibrillation (3) Hypertension Current Visit: Yes Status: Acute Assessment and plan: Continue home meds Qualifiers: Hypertension type: essential hypertension Qualified Code(s): I10 - Essential (primary) hypertension (4) DVT prophylaxis Current Visit: Yes Status: Acute Assessment and plan: SCDs - Time Spent With Patient Total time spent is greater than 50% in coordination of care (as documented) at patient's floor/unit and/or counseling patient:
--- NOTE | 2018-11-01 17:32 | Orthopedic Consult Note ---
Date of Encounter: 11/01/18 Time of Encounter: 17:15 History of Present Illness Chief complaint: Right knee pain HPI: Ms. Barragan is a 78 year old female who sustained a fall when she was attempting to go into her house last night. She apparently stumbled and fell striking her right knee as well as the right side of her face. Patient states that she has had difficulty ambulating and has used a walker for at least the past 4 years. She attributes this to a combination of a back problem as well as what sounds like chronic shingles. The patient did have bilateral knee replacements 20+ years ago. She has not had any problems with the knees until this episode. The patient's history is also complicated by the use of oral anticoagulants (Xarelto). I have reviewed the patient's completed history and physical examination, the medical record and imaging studies completed. Pertinent physical examination reveals a pleasant 78-year-old woman in no distress while lying still in the hospital bed. Examination of the right lower extremity reveals pain about the right knee. This is somewhat global in nature but appears to be centered about the patella and along the medial side of the femur. There is a well-healed midline incision. There is an obvious effusion in the knee. There is ecchymosis and some swelling in the soft tissue. Complete examination of the knee is not possible due to the pain. Review of the right femur and pelvis x-rays reveals good bone quality. There are mild to moderate arthritic changes. X-rays of the right knee reveal a stab le, cemented 3 part total knee arthroplasty. There does not appear to be any evidence of a periprosthetic lucencies. There appears to be a nondisplaced fracture of the medial femoral condyle at the flare. Cannot visualize the extent of the fracture due to the presence of the femoral component. On lateral view the patella component appears to be intact. There is a fluid-fluid level effusion consistent with a lipohemarthrosis, consistent with an fracture inside the knee joint proper. Impression: Nondisplaced periprosthetic fracture right medial femoral condyle Recommendation: This fracture can be treated conservatively without any surgical intervention. Recommend that the patient be placed into a knee immobilizer and maintain strict nonweightbearing. Would not allow knee flexion at this time. Would start physical therapy and make sure the patient is safe prior to discharge. Can resume Xarelto. Will follow up with me in about 2 weeks' time. Discussed at length with the patient that for evaluation of the knee cannot be performed at this time and that there is the potential for ligamentous or other injuries. We would not know about these until the fracture has healed enough that we can evaluate her further. Thank you very much for allowing me to see and care for Mrs. Barragan. Sincerely, Mario Shelton,DO Past Med Surg Social Fam HX - Past Medical History Medical history: arthritis, asthma, atrial fibrillation, CHF, hyperlipidemia, hypertension, myocardial infarction, osteoporosis, pulmonary embolus, syncope, valvular heart disease Additional medical history: PE in 1985 Psychiatric history: anxiety, depression - Past Surgical History Surgical History: knee replacement Additional surgical history: BACK SURGERY - Social History Smoking Status: Never smoker Smokeless Tobacco Status: No Alcohol use: none Drug use: none - Family History Son Family Member Ethnicity: Non- Living Status: Still Living Hx Family Cardiac Disorders: Yes ([place], AFIB) Hx Family Endocrine Disorder: Yes (DM) Mother Living Status: Hx Family Cardiac Disorders: Yes (mother) Hx Family Cancer: Yes (sister) Medications and Allergies Aspirin [Adult Low Dose Aspirin EC] 81 mg PO DAILY 07/24/15 [History] Gabapentin [Neurontin] 300 mg PO BID 07/24/15 [History] Niacin [Niaspan] 500 mg PO HS 07/24/15 [History] Multivit/Ca/Min/Fe/FA [Thera M Plus] 1 tab PO DAILY tablet 08/06/15 [Rx] Furosemide [Lasix] 40 mg PO ONCE 08/11/15 [History] Nystatin Cream [Mycostatin Cream] 1 appl TP TID PRN 10/31/16 [History] Oxygen 2 l NS CONT 10/31/16 [History] Potassium Chloride [K-Tab ER] 20 meq PO BID 10/31/16 [History] Levalbuterol Neb [Xopenex Neb] 0.63 mg IH BID 11/16/16 [History] Diltiazem CD (24hr) [Cardizem CD] 180 mg PO DAILY #30 cap.er.24h 11/22/16 [Rx] Sotalol [Betapace] 80 mg PO Q12HR #120 tablet 11/22/16 [Rx] Rivaroxaban [Xarelto] 15 mg PO DAILY 11/01/18 [History] Allergy/AdvReac Type Severity Reaction Status Date / Time amiodarone AdvReac pulmonary Verified 09/06/17 14:46 toxicity Cyclobenzaprine AdvReac Hallucinati Verified 09/06/17 14:46 [From Flexeril] ng fenofibrate [From Tricor] AdvReac Muscle Pain Verified 09/06/17 14:46 Hodksin-Zdr-Qha Reductase AdvReac Muscle Pain Verified 09/06/17 14:46 Inhibitor [Statins] tramadol [From Ultram] AdvReac Itching Verified 09/06/17 14:46 All Systems Reviewed: The remainder of the systems were reviewed and are negative Physical Exam - Constitutional Vitals: Temp Pulse Resp BP Pulse Ox 98.5 F 84 19 180/83 90 11/01/18 16:04 11/01/18 16:04 11/01/18 16:04 11/01/18 16:04 11/01/18 16:04 Results - Labs Result Diagrams: 11/01/18 04:21 11/01/18 04:21 Labs: Abnormal lab results PT 13.7 Seconds (9.4-12.1) H 11/01/18 04:21 0.59 mg/dL (0.60-1.20) L 11/01/18 04:21 Glucose 121 mg/dL (70-105) H 11/01/18 04:21 H & H 11/01/18 Range/Units 04:21 Hgb 13.8 (11.5-15.4) g/dL Hct 40.7 (35.3-44.9) % All other labs normal. - Diagnostic results Pelvic AP x-ray: image reviewed Knee x-ray: image reviewed Consult Discharge Plan - Plan Referrals: Juventino Carlisle MD [Primary Care Provider] -
[2018-11-01] MEDS: *HR* Rivaroxaban 15 MG TABLET PO SCH (17:44)
[2018-11-02 06:05] LABS: Basophils % 0.1 %; Eosinophils # 0.4 K/mcL (0.0-0.6); Eosinophils % 4.2 %; Hematocrit 40.1 % (35.3-44.9); Hemoglobin 13.6 g/dL (11.5-15.4); Immature Granulocytes % 0.4 % (0-4); Lymphocytes # 0.8 K/mcL (0.6-4.6); Lymphocytes % 7.9 %; Mean Corpuscular HGB Conc 33.9 g/dL (31.6-35.5); Mean Corpuscular Hemoglobin 31.3 pg (28.0-33.3); Mean Corpuscular Volume 92.4 fL (83.0-100.0); Mean Platelet Volume 9.9 fL (9.4-12.4); Monocytes # 0.6 K/mcL (0.0-1.3); Monocytes % 6.1 %; Neutrophils # 8.2 K/mcL (1.6-8.9); Platelet Count 162 K/mcL (140-400); Red Blood Count 4.34 M/mcL (3.82-4.97); Segmented Neutrophils % 81.3 %; White Blood Count 10.1 K/mcL (4.3-11.1)
[2018-11-02 06:29] LABS: BUN/Creatinine Ratio 17 (6-26); Blood Urea Nitrogen 10 mg/dL (8-23); Calcium 9.4 mg/dL (8.6-10.3); Carbon Dioxide 30 mEq/L (23-29); Chloride 100 mEq/L (98-107); Glucose 129 mg/dL (70-105); Magnesium 2.2 mg/dL (1.6-2.6); Osmolality,Calculated 289 (280-300); Phosphorous 2.9 mg/dL (2.7-4.5); Potassium 3.1 mEq/L (3.5-5.1); Sodium 139 mEq/L (136-145); eGFR For African Americans > 60 (> 60); eGFR For Non-African Americans > 60 (> 60)
--- NOTE | 2018-11-02 09:10 | Internal Med Progress Note ---
Hospitalist Progress Note - Encounter Date of Encounter: 11/02/18 Time of Encounter: 09:00 - Subjective Interval History: No acute events overnight - Exam Vitals: Temp Pulse Resp BP Pulse Ox 98.9 F 73 18 153/79 92 11/02/18 07:34 11/02/18 07:34 11/02/18 07:34 11/02/18 07:34 11/02/18 07:34 Exam: General appearance: Present: A&O X 3, no acute distress Head exam: Present: normocephalic Respiratory exam: Present: CTAB. Absent: accessory muscle use, rales, rhonchi, wheezes Cardiovascular exam: Present: RRR, +S1, +S2. Absent: diastolic murmur, gallop, rubs, systolic murmur GI/Abdominal exam: Soft, NT, ND, +BS Extremities exam: Right knee immobilizer in place Neurological exam: Present: alert, oriented X3, no focal deficits. Absent: altered - Assessment and Plan (1) Fracture of femoral condyle, right, closed Current Visit: Yes Status: Acute Assessment and Plan: Pt comes inn with femoral fracture s/p fall. Xray shows medial femoral condyle fracture Pain control. Orthopedic surgery consulted and recommend no acute surgical intervention Physical therapy consulted and plan for discharge to rehab (2) Atrial fibrillation Current Visit: Yes Status: Chronic Assessment and Plan: Hold xarelto for possible surgery. Continue rate control with sotalol (3) Hypertension Current Visit: Yes Status: Acute Assessment and Plan: Continue home meds (4) DVT prophylaxis Current Visit: Yes Status: Acute Assessment and Plan: SCDs - Time Spent with Patient Total time spent is greater than 50% in coordination of care (as documented) at patient's floor/unit and/or counseling patient: Internal Medicine: Result - Labs CBC & Chem 7: 11/02/18 05:31 11/02/18 05:31 Labs: Short CBC 11/02/18 Range/Units 05:31 WBC 10.1 (4.3-11.1) K/mcL Hgb 13.6 (11.5-15.4) g/dL Hct 40.1 (35.3-44.9) % Plt Count 162 (140-400) K/mcL Neutrophils # 8.2 (1.6-8.9) K/mcL BMP 11/02/18 05:31 Sodium 139 Potassium 3.1 L Chloride 100 Carbon Dioxide 30 H BUN 10 Creatinine 0.60 Glucose 129 H Calcium 9.4 - ABG Interpretation ABG results: PT/INR, D-dimer PT 13.7 Seconds (9.4-12.1) H 11/01/18 04:21 Consult Discharge Plan - Plan Referrals: Juventino Carlisle MD [Primary Care Provider] - (1) Fracture of femoral condyle, right, closed Qualifiers: Encounter type: initial encounter Fracture alignment: nondisplaced Qualified Code(s): S72.414A - Nondisplaced unspecified condyle fracture of lower end of right femur, initial encounter for closed fracture (2) Atrial fibrillation Qualifiers: Atrial fibrillation type: paroxysmal Qualified Code(s): I48.0 - Paroxysmal atrial fibrillation (3) Hypertension Qualifiers: Hypertension type: essential hypertension Qualified Code(s): I10 - Essential (primary) hypertension
[2018-11-02] MEDS: Multivit/Ca/Min/Fe/FA 1 TAB TABLET PO SCH (09:55)
[2018-11-02] MEDS: Gabapentin 300 MG CAPSULE PO SCH ×2 (09:56→22:47)
[2018-11-02] MEDS: Potassium Chloride Elixir 20 MEQ/15 ML UDC PO SCH ×2 (09:56→13:49)
[2018-11-02] MEDS: Levalbuterol Neb 0.63 MG/3 ML IH SCH ×2 (10:32→22:11)
[2018-11-02] MEDS ORDERED: Albuterol 2.5 MG/3 ML NEBULIZER AER PRN (16:27)
[2018-11-02] MEDS: *HR* Rivaroxaban 15 MG TABLET PO SCH (17:01)
[2018-11-02] MEDS: amLODIPine 5 MG TABLET PO SCH (17:01)
[2018-11-03 08:28] LABS: Hematocrit 41.4 % (35.3-44.9); Hemoglobin 13.4 g/dL (11.5-15.4); Mean Corpuscular HGB Conc 32.4 g/dL (31.6-35.5); Mean Corpuscular Hemoglobin 30.7 pg (28.0-33.3); Mean Platelet Volume 10.2 fL (9.4-12.4); Platelet Count 185 K/mcL (140-400); Red Blood Count 4.36 M/mcL (3.82-4.97); Red Cell Distribution Width 12.9 % (11.5-14.5); White Blood Count 10.8 K/mcL (4.3-11.1)
--- NOTE | 2018-11-03 08:57 | Internal Med Progress Note ---
Hospitalist Progress Note - Encounter Date of Encounter: 11/03/18 - Exam Vitals: Temp Pulse Resp BP Pulse Ox 98.1 F 60 20 133/74 91 11/03/18 08:35 11/03/18 08:35 11/03/18 08:35 11/03/18 08:35 11/03/18 08:35 Exam: General appearance: Present: A&O X 3, no acute distress Head exam: Present: normocephalic Respiratory exam: Present: CTAB. Absent: accessory muscle use, rales, rhonchi, wheezes Cardiovascular exam: Present: RRR, +S1, +S2. Absent: diastolic murmur, gallop, rubs, systolic murmur GI/Abdominal exam: Soft, NT, ND, +BS Extremities exam: Right knee immobilizer in place Neurological exam: Present: alert, oriented X3, no focal deficits. Absent: altered - Assessment and Plan (1) Fracture of femoral condyle, right, closed Current Visit: Yes Status: Acute Assessment and Plan: Pt comes inn with femoral fracture s/p fall. Xray shows medial femoral condyle fracture Pain control. Orthopedic surgery consulted and recommend no acute surgical intervention Physical therapy consulted and plan for discharge to rehab (2) Atrial fibrillation Current Visit: Yes Status: Chronic Assessment and Plan: Hold xarelto for possible surgery. Continue rate control with sotalol (3) Hypertension Current Visit: Yes Status: Acute Assessment and Plan: Continue home meds (4) DVT prophylaxis Current Visit: Yes Status: Acute Assessment and Plan: SCDs - Time Spent with Patient Total time spent is greater than 50% in coordination of care (as documented) at patient's floor/unit and/or counseling patient: Internal Medicine: Result - Labs CBC & Chem 7: 11/03/18 07:44 11/02/18 05:31 Labs: Short CBC 11/03/18 Range/Units 07:44 WBC 10.8 (4.3-11.1) K/mcL Hgb 13.4 (11.5-15.4) g/dL Hct 41.4 (35.3-44.9) % Plt Count 185 (140-400) K/mcL - ABG Interpretation ABG results: PT/INR, D-dimer PT 13.7 Seconds (9.4-12.1) H 11/01/18 04:21 Consult Discharge Plan - Plan Referrals: Juventino Carlisle MD [Primary Care Provider] - (1) Fracture of femoral condyle, right, closed Qualifiers: Encounter type: initial encounter Fracture alignment: nondisplaced Qualified Code(s): S72.414A - Nondisplaced unspecified condyle fracture of lower end of right femur, initial encounter for closed fracture (2) Atrial fibrillation Qualifiers: Atrial fibrillation type: paroxysmal Qualified Code(s): I48.0 - Paroxysmal atrial fibrillation (3) Hypertension Qualifiers: Hypertension type: essential hypertension Qualified Code(s): I10 - Essential (primary) hypertension
[2018-11-03] MEDS ORDERED: Furosemide 40 MG TABLET PO SCH (09:00)
[2018-11-03] MEDS ORDERED: Cholecalciferol (D-3) 1,000 UNIT TABLET PO SCH (09:00)
[2018-11-03] MEDS ORDERED: Aspirin Enteric Coated 81 MG Tablet PO SCH (09:00)
[2018-11-03 09:14] LABS: BUN/Creatinine Ratio 23 (6-26); Blood Urea Nitrogen 14 mg/dL (8-23); Calcium 9.5 mg/dL (8.6-10.3); Carbon Dioxide 31 mEq/L (23-29); Chloride 101 mEq/L (98-107); Glucose 145 mg/dL (70-105); Osmolality,Calculated 289 (280-300); Potassium 4.1 mEq/L (3.5-5.1); Sodium 138 mEq/L (136-145); eGFR For African Americans > 60 (> 60); eGFR For Non-African Americans > 60 (> 60)
[2018-11-03] MEDS: amLODIPine 5 MG TABLET PO SCH (10:33)
[2018-11-03] MEDS: Multivit/Ca/Min/Fe/FA 1 TAB TABLET PO SCH (10:33)
[2018-11-03] MEDS: Gabapentin 300 MG CAPSULE PO SCH (10:33)
[2018-11-03] MEDS: Levalbuterol Neb 0.63 MG/3 ML IH SCH (10:41)
--- NOTE | 2018-11-03 12:17 | Physician Discharge Referral ---
- Diagnosis (1) Fracture of femoral condyle, right, closed Priority: Primary Status: Acute (2) Atrial fibrillation Priority: Primary Status: Chronic (3) Hypertension Priority: Primary Status: Acute (4) DVT prophylaxis Priority: Primary Status: Acute - Transfer Medications Prescriptions: OxyCODONE/APAP 5/325 [Percocet 5/325 MG] 1 each PO Q6HR PRN 3 Days #10 tablet PRN Reason: Pain Home Medications: Gabapentin [Neurontin] 300 mg PO BID 07/24/15 [History] Multivit/Ca/Min/Fe/FA [Thera M Plus] 1 tab PO DAILY tablet 08/06/15 [Rx] Furosemide [Lasix] 40 mg PO DAILY 08/11/15 [History] Oxygen 2 l NS CONT 10/31/16 [History] Sotalol [Betapace] 80 mg PO Q12HR #120 tablet 11/22/16 [Rx] Rivaroxaban [Xarelto] 15 mg PO QAM 11/01/18 [History] Albuterol Neb [Proventil Neb] 2.5 mg PO BID PRN 11/02/18 [History] Amlodipine Besylate 5 mg PO QAM 11/02/18 [History] Aspirin [Lo-Dose Aspirin EC] 81 mg PO QAM 11/02/18 [History] Cholecalciferol (Vitamin D3) [Vitamin D3] 2,000 units PO QAM 11/02/18 [History] OxyCODONE/APAP 5/325 [Percocet 5/325 MG] 1 each PO Q6HR PRN 3 Days #10 tablet 11/03/18 [Rx] Allergies/Adverse Reactions: Allergy/AdvReac Type Severity Reaction Status Date / Time amiodarone AdvReac pulmonary Verified 11/02/18 14:54 toxicity Cyclobenzaprine AdvReac Hallucinati Verified 11/02/18 14:54 [From Flexeril] ng fenofibrate [From Tricor] AdvReac Muscle Pain Verified 11/02/18 14:54 Umulcde-Rka-Ebg Reductase AdvReac Muscle Pain Verified 11/02/18 14:54 Inhibitor [Statins] tramadol [From Ultram] AdvReac Itching Verified 11/02/18 14:54 - Respiratory Orders Smoking Cessation: Smoking cessation has been advised. For more information, call the [employer] Tobacco Quit Line at 0-306-CGGM-NOW. - Mobility Orders Ambulate - Rehabiliation Orders Rehab Orders: Evaluation for Physical Therapy, Evaluation for Occupational Therapy CERTIFICATION: I certify that the transfer of the above named patient to an Extended Care Facility is necessary for the continuing treatment of the diagnosis listed. The above information is true and accurate reflection of patient's current condition. Confidential - Redisclosure prohibited without a patient's written consent.
--- NOTE | 2018-11-03 12:17 | Discharge Summary ---
Date of Encounter: 11/03/18 Time of Encounter: 10:00 - Discharge Diagnosis (1) Fracture of femoral condyle, right, closed Priority: Primary Status: Acute Assessment and Plan: 78 year old female with pmh of bilateral knee replacement, atrial fibrillation on xarelto, hypertension, PE, osteoporosis presenting with complaints of tripping and falling last night. Patient says she was standing on the porch of the house and walked back into the house when she tripped and fell and landed on her right knee. She immediately felt excruciating pain and called her for help who was unable to get her up. She was finally able to get up with the help of her neighbors and called EMS to bring her to the hospital. Prior to this episode, she was at her usual state of health and had no acute complaints. She was assessed with femoral fracture s/p fall. Xray shows medial femoral condyle fracture. She was seen by orthopedic surgery consulted and who recommended no acute surgical intervention. She was placed in a knee immobilize r. Physical therapy was consulted and recommend discharge to rehab.She was discharged in a stable condition Qualifiers: Encounter type: initial encounter Fracture alignment: nondisplaced Qualified Code(s): S72.414A - Nondisplaced unspecified condyle fracture of lower end of right femur, initial encounter for closed fracture (2) Atrial fibrillation Priority: Primary Status: Chronic Qualifiers: Atrial fibrillation type: paroxysmal Qualified Code(s): I48.0 - Paroxysmal atrial fibrillation (3) Hypertension Priority: Primary Status: Acute Qualifiers: Hypertension type: essential hypertension Qualified Code(s): I10 - Essential (primary) hypertension (4) DVT prophylaxis Priority: Primary Status: Acute Hospital course: Ms. Bacon is a 78 year old female - Time Spent with Patient Total time spent providing and/or coordinating discharge services: - Discharge Medications Prescriptions: New OxyCODONE/APAP 5/325 [Percocet 5/325 MG] 1 each PO Q6HR PRN 3 Days #10 tablet PRN Reason: Pain Continued Gabapentin [Neurontin] 300 mg PO BID Multivit/Ca/Min/Fe/FA [Thera M Plus] 1 tab PO DAILY tablet Oxygen 2 l NS CONT Sotalol [Betapace] 80 mg PO Q12HR #120 tablet Rivaroxaban [Xarelto] 15 mg PO QAM Albuterol Neb [Proventil Neb] 2.5 mg PO BID PRN PRN Reason: Shortness Of Breath Amlodipine Besylate 5 mg PO QAM Aspirin [Lo-Dose Aspirin EC] 81 mg PO QAM Cholecalciferol (Vitamin D3) [Vitamin D3] 2,000 units PO QAM Furosemide [Lasix] 40 mg PO DAILY Home Medications: Gabapentin [Neurontin] 300 mg PO BID 07/24/15 [History] Multivit/Ca/Min/Fe/FA [Thera M Plus] 1 tab PO DAILY tablet 08/06/15 [Rx] Furosemide [Lasix] 40 mg PO DAILY 08/11/15 [History] Oxygen 2 l NS CONT 10/31/16 [History] Sotalol [Betapace] 80 mg PO Q12HR #120 tablet 11/22/16 [Rx] Rivaroxaban [Xarelto] 15 mg PO QAM 11/01/18 [History] Albuterol Neb [Proventil Neb] 2.5 mg PO BID PRN 11/02/18 [History] Amlodipine Besylate 5 mg PO QAM 11/02/18 [History] Aspirin [Lo-Dose Aspirin EC] 81 mg PO QAM 11/02/18 [History] Cholecalciferol (Vitamin D3) [Vitamin D3] 2,000 units PO QAM 11/02/18 [History] OxyCODONE/APAP 5/325 [Percocet 5/325 MG] 1 each PO Q6HR PRN 3 Days #10 tablet 11/03/18 [Rx] Allergies/Adverse Reactions: Allergy/AdvReac Type Severity Reaction Status Date / Time amiodarone AdvReac pulmonary Verified 11/02/18 14:54 toxicity Cyclobenzaprine AdvReac Hallucinati Verified 11/02/18 14:54 [From Flexeril] ng fenofibrate [From Tricor] AdvReac Muscle Pain Verified 11/02/18 14:54 [id number]-Awe Reductase AdvReac Muscle Pain Verified 11/02/18 14:54 Inhibitor [Statins] tramadol [From Ultram] AdvReac Itching Verified 11/02/18 14:54 Date of admission: 11/01/18 05:01 Primary care physician: Juventino Carlisle MD Consults: 11/01/18 03:28 Consult to Orthopedic Surgery [CONS] Stat Consulting Provider: Mario Shelton Reason for Consult: right femoral condylar fracture Time Notified: 03:29 Call Completed: Yes 11/01/18 06:19 Consult to Pastoral Services [CONS] Routine Comment: 11/01/18 17:33 Consult to Physical Therapy [CONS] Routine Comment: Evaluate, develop and implement POC Reason for Consult: NWB Ambulation Does patient have active BEDREST order?: No Is patient medically & hemodynamically stable?: Yes Consult to Composer Teaching Artist [CONS] Routine Reason for SW Consult: Discharge planning 11/02/18 10:06 Consult to Occupational Therapy [CONS] Routine Comment: Evaluate, develop and implement POC Reason for Consult: eval and treat Does patient have active BEDREST order?: Yes Is patient medically & hemodynamically stable?: Yes Patient assessed for mobility or mobilized this visit?: Yes - Constitutional Vitals: Temp Pulse Resp BP Pulse Ox 98.0 F 67 16 150/65 91 11/03/18 12:00 11/03/18 12:00 11/03/18 12:00 11/03/18 12:00 11/03/18 12:00 Exam: General appearance: Present: A&O X 3, no acute distress Head exam: Present: normocephalic Respiratory exam: Present: CTAB. Absent: accessory muscle use, rales, rhonchi, wheezes Cardiovascular exam: Present: RRR, +S1, +S2. Absent: diastolic murmur, gallop, rubs, systolic murmur GI/Abdominal exam: Soft, NT, ND, +BS Extremities exam: Right knee immobilizer in place Neurological exam: Present: alert, oriented X3, no focal deficits. Absent: altered - Patient Status Disposition: Transfer SNF Condition: Good - Discharge Instructions Follow Up With: Juventino Carlisle MD [Primary Care Provider] - 11/14/18 9:00 am
[2018-11-03 14:15] VITALS: BP 138/76
== END 2018-11-03 15:28 ==
LOC: 3NENU 23:52 → EMEROOARM 23:52 → 3NENU 11-01 05:45
PROVIDERS: ADMIT Internal Medicine; ATTEND Internal Medicine

== ENCOUNTER 2019-06-06 11:07 | Inpatient (IN) ==
[2019-06-06] MEDS ORDERED: Ipratropium/Albuterol Neb 3 ML IH ONE (11:17)
[2019-06-06] MEDS ORDERED: methylPREDNISolone 125 MG/2 ML VIAL IVP ONE (11:24)
[2019-06-06 11:30] LABS: ABG Base Excess 8 mEq/L (-2 to 3); ABG HCO3 35 mEq/L (21-27); ABG Oxygen Saturation 88 % (95-98); ABG PCO2 56 mmHg (35-45); ABG PO2 56 mmHg (85-104); ABG TCO2 37 mEq/L (20-26)
[2019-06-06] MEDS ORDERED: DilTIAZem 50 MG in 0.9 % Sodium Chloride 40 ML IVC SCH (11:45)
[2019-06-06 11:55] LABS: Basophils % 0.2 %; Eosinophils # 0.1 K/mcL (0.0-0.6); Eosinophils % 0.7 %; Hematocrit 46.5 % (35.3-44.9); Hemoglobin 15.1 g/dL (11.5-15.4); Immature Granulocytes % 0.4 % (0-4); Lymphocytes % 10.4 %; Mean Corpuscular HGB Conc 32.5 g/dL (31.6-35.5); Mean Corpuscular Hemoglobin 31.8 pg (28.0-33.3); Mean Corpuscular Volume 97.9 fL (83.0-100.0); Mean Platelet Volume 10.4 fL (9.4-12.4); Monocytes # 0.5 K/mcL (0.0-1.3); Monocytes % 5.6 %; Neutrophils # 7.9 K/mcL (1.6-8.9); Platelet Count 255 K/mcL (140-400); Red Blood Count 4.75 M/mcL (3.82-4.97); Red Cell Distribution Width 14.2 % (11.5-14.5); Segmented Neutrophils % 82.7 %; White Blood Count 9.6 K/mcL (4.3-11.1)
[2019-06-06] MEDS ORDERED: 0.9 % Sodium Chloride 1,000 ML IVC ONE ×2 (12:08→12:40)
[2019-06-06 12:15] LABS: BUN/Creatinine Ratio 24 (6-26); Blood Urea Nitrogen 22 mg/dL (8-23); Calcium 10.5 mg/dL (8.6-10.3); Carbon Dioxide 33 mEq/L (23-29); Chloride 100 mEq/L (98-107); Glucose 135 mg/dL (70-105); Osmolality,Calculated 297 (280-300); Potassium 4.5 mEq/L (3.5-5.1); Sodium 141 mEq/L (136-145); eGFR For African Americans > 60 (> 60); eGFR For Non-African Americans 60 (> 60)
[2019-06-06 12:16] LABS: Troponin I < 0.03 ng/mL (< 0.04)
[2019-06-06] MEDS ORDERED: Furosemide 40 MG/4 ML VIAL IVP ONE (12:40)
[2019-06-06] MEDS ORDERED: Levalbuterol Neb 1.25 MG/3 ML ONE (15:37)
[2019-06-06] MEDS: Levalbuterol Neb 1.25 MG/3 ML IH SCH ×3 (15:42→23:01)
[2019-06-06] MEDS ORDERED: Levalbuterol 1 PUFF INHALER IH SCH (16:00)
[2019-06-06] MEDS: Furosemide 40 MG/4 ML VIAL IVP SCH (17:57)
[2019-06-06] MEDS: DilTIAZem 50 MG in 0.9 % Sodium Chloride 40 ML IVC SCH (18:10)
[2019-06-06] MEDS ORDERED: Perflutren Lipid Microsphere 1.3 ML in 0.9 % Sodium Chloride 8.7 ML IVP ONE (21:03)
[2019-06-06 21:27] LABS: Adenovirus Not Detected (Not Detect); Bordetella Pertussis Not Detected (Not Detect); Chlamydophila pneumoniae Not Detected (Not Detect); Coronavirus 229E Not Detected (Not Detect); Coronavirus HKU1 Not Detected (Not Detect); Coronavirus NL63 Not Detected (Not Detect); Coronavirus OC43 Not Detected (Not Detect); Human Metapneumovirus Not Detected (Not Detect); Human Rhinovirus/Enterovirus Not Detected (Not Detect); Influenza A Subtype 2009 H1 Not Detected (Not Detect); Influenza B Not Detected (Not Detect); Mycoplasma pneumoniae Not Detected (Not Detect); Parainfluenza Virus 1 Not Detected (Not Detect); Parainfluenza Virus 2 Not Detected (Not Detect); Parainfluenza Virus 3 Not Detected (Not Detect); Parainfluenza Virus 4 Not Detected (Not Detect); Respiratory Syncytial Virus Not Detected (Not Detect)
[2019-06-06] MEDS: Gabapentin 300 MG CAPSULE PO SCH (21:43)
[2019-06-07] MEDS: Nystatin POWDER 30 GM BOTTLE TP SCH ×3 (00:13→20:40)
[2019-06-07] MEDS: DilTIAZem 50 MG in 0.9 % Sodium Chloride 40 ML IVC SCH (01:26)
[2019-06-07] MEDS: Levalbuterol Neb 1.25 MG/3 ML IH SCH ×6 (03:49→23:57)
[2019-06-07 04:29] LABS: BUN/Creatinine Ratio 28 (6-26); Blood Urea Nitrogen 25 mg/dL (8-23); Calcium 9.7 mg/dL (8.6-10.3); Carbon Dioxide 36 mEq/L (23-29); Chloride 101 mEq/L (98-107); Glucose 176 mg/dL (70-105); Magnesium 2.4 mg/dL (1.6-2.6); Osmolality,Calculated 303 (280-300); Potassium 4.2 mEq/L (3.5-5.1); Sodium 142 mEq/L (136-145); eGFR For African Americans > 60 (> 60); eGFR For Non-African Americans > 60 (> 60)
[2019-06-07 04:34] LABS: ABG Base Excess 12 mEq/L (-2 to 3); ABG HCO3 38 mEq/L (21-27); ABG Oxygen Saturation 86 % (95-98); ABG PCO2 59 mmHg (35-45); ABG PH 7.42 pH Units (7.32-7.45); ABG PO2 53 mmHg (85-104); ABG TCO2 40 mEq/L (20-26)
[2019-06-07] MEDS ORDERED: predniSONE 20 MG TABLET PO SCH (09:00)
[2019-06-07] MEDS: Furosemide 40 MG/4 ML VIAL IVP SCH ×2 (10:12→17:48)
[2019-06-07] MEDS: Cholecalciferol (D-3) 1,000 UNIT (25MCG) TABLET PO SCH (10:12)
[2019-06-07] MEDS: Gabapentin 300 MG CAPSULE PO SCH ×2 (10:12→20:40)
[2019-06-07] MEDS: Aspirin Enteric Coated 81 MG Tablet PO SCH (10:12)
[2019-06-07] MEDS ORDERED: Dextrose Gel 15 GM/37.5 ML TUBE PO PRN ×4 (12:33→20:49)
[2019-06-07] MEDS ORDERED: *HR* Dextrose 50 % in Water (Syg) 50 ML SYRINGE IVP PRN ×2 (12:33→20:49)
[2019-06-07] MEDS ORDERED: D5% in Water 1,000 ML IVC PRN ×2 (12:33→20:49)
[2019-06-07] MEDS ORDERED: *HR* Rivaroxaban 15 MG TABLET PO SCH (17:00)
[2019-06-07] MEDS: *HR* Rivaroxaban 10 MG TABLET PO SCH (17:45)
[2019-06-07] MEDS: Insulin LISPRO 300 UNITS/3 ML VIAL SQ SCH ×2 (17:49→21:33)
[2019-06-07 18:27] LABS: ABG Base Excess 12 mEq/L (-2 to 3); ABG HCO3 39 mEq/L (21-27); ABG Oxygen Saturation 94 % (95-98); ABG PCO2 60 mmHg (35-45); ABG PH 7.43 pH Units (7.32-7.45); ABG PO2 71 mmHg (85-104); ABG TCO2 41 mEq/L (20-26)
[2019-06-08 01:03] LABS: Hematocrit 39.8 % (35.3-44.9); Hemoglobin 13.1 g/dL (11.5-15.4); Mean Corpuscular HGB Conc 32.9 g/dL (31.6-35.5); Mean Corpuscular Hemoglobin 31.5 pg (28.0-33.3); Mean Corpuscular Volume 95.7 fL (83.0-100.0); Mean Platelet Volume 10.3 fL (9.4-12.4); Platelet Count 232 K/mcL (140-400); Red Blood Count 4.16 M/mcL (3.82-4.97); Red Cell Distribution Width 14.2 % (11.5-14.5); White Blood Count 11.5 K/mcL (4.3-11.1)
[2019-06-08 01:22] LABS: BUN/Creatinine Ratio 33 (6-26); Blood Urea Nitrogen 33 mg/dL (8-23); Calcium 9.8 mg/dL (8.6-10.3); Carbon Dioxide 36 mEq/L (23-29); Chloride 100 mEq/L (98-107); Glucose 162 mg/dL (70-105); Magnesium 2.5 mg/dL (1.6-2.6); Osmolality,Calculated 305 (280-300); Potassium 4.1 mEq/L (3.5-5.1); Sodium 142 mEq/L (136-145); eGFR For African Americans > 60 (> 60); eGFR For Non-African Americans 54 (> 60)
[2019-06-08] MEDS: Levalbuterol Neb 1.25 MG/3 ML IH SCH ×6 (03:25→23:24)
[2019-06-08] MEDS: Furosemide 40 MG/4 ML VIAL IVP SCH ×2 (08:14→17:00)
[2019-06-08] MEDS: Cholecalciferol (D-3) 1,000 UNIT (25MCG) TABLET PO SCH (08:14)
[2019-06-08] MEDS: Aspirin Enteric Coated 81 MG Tablet PO SCH (08:14)
[2019-06-08] MEDS: Gabapentin 300 MG CAPSULE PO SCH ×2 (08:14→22:03)
[2019-06-08] MEDS: Insulin LISPRO 300 UNITS/3 ML VIAL SQ SCH ×4 (08:15→22:19)
[2019-06-08] MEDS: MethylPREDNISolone 40 MG/ML VIAL IVP SCH ×2 (08:16→17:01)
[2019-06-08] MEDS: Nystatin POWDER 30 GM BOTTLE TP SCH ×2 (08:16→22:20)
[2019-06-08] MEDS: DilTIAZem 50 MG in 0.9 % Sodium Chloride 40 ML IVC SCH ×2 (08:25→17:03)
[2019-06-08 10:55] LABS: VBG HCO3 38 mEq/L (21-27); VBG PCO2 68 mmHg (41-51); VBG PH 7.36 pH Units (7.32-7.42); VBG PO2 222 mmHg (25-50)
[2019-06-08 13:06] LABS: Albumin 3.8 g/dL (3.5-5.7); Albumin/Globulin Ratio 1.3 (1.1-2.2); Bilirubin,Direct 0.2 mg/dL (0.0-0.2); Bilirubin,Indirect 0.4 mg/dL (0.0-1.0); Bilirubin,Total 0.6 mg/dL (0.3-1.0); Globulin 2.9 g/dL (2.4-3.5); Total Protein 6.7 g/dL (6.4-8.9)
[2019-06-08 13:46] LABS: Estimated Average Glucose 123 mg/dl
[2019-06-08] MEDS: *HR* Rivaroxaban 10 MG TABLET PO SCH (16:59)
[2019-06-09] MEDS: Levalbuterol Neb 1.25 MG/3 ML IH SCH ×5 (03:32→19:39)
[2019-06-09 05:25] LABS: Hematocrit 40.4 % (35.3-44.9); Hemoglobin 13.4 g/dL (11.5-15.4); Mean Corpuscular HGB Conc 33.2 g/dL (31.6-35.5); Mean Corpuscular Hemoglobin 31.5 pg (28.0-33.3); Mean Corpuscular Volume 95.1 fL (83.0-100.0); Mean Platelet Volume 10.1 fL (9.4-12.4); Platelet Count 225 K/mcL (140-400); Red Blood Count 4.25 M/mcL (3.82-4.97); Red Cell Distribution Width 14.3 % (11.5-14.5)
[2019-06-09 05:31] LABS: VBG HCO3 39 mEq/L (21-27); VBG PCO2 64 mmHg (41-51); VBG PH 7.39 pH Units (7.32-7.42); VBG PO2 221 mmHg (25-50)
[2019-06-09 05:45] LABS: BUN/Creatinine Ratio 44 (6-26); Blood Urea Nitrogen 36 mg/dL (8-23); Calcium 9.6 mg/dL (8.6-10.3); Carbon Dioxide 36 mEq/L (23-29); Chloride 101 mEq/L (98-107); Glucose 176 mg/dL (70-105); Magnesium 2.4 mg/dL (1.6-2.6); Osmolality,Calculated 311 (280-300); Potassium 3.8 mEq/L (3.5-5.1); Sodium 144 mEq/L (136-145); eGFR For African Americans > 60 (> 60); eGFR For Non-African Americans > 60 (> 60)
[2019-06-09] MEDS: MethylPREDNISolone 40 MG/ML VIAL IVP SCH ×2 (06:18→17:27)
[2019-06-09] MEDS: DilTIAZem 50 MG in 0.9 % Sodium Chloride 40 ML IVC SCH (06:19)
[2019-06-09] MEDS: Cholecalciferol (D-3) 1,000 UNIT (25MCG) TABLET PO SCH (08:07)
[2019-06-09] MEDS: Gabapentin 300 MG CAPSULE PO SCH ×2 (08:07→20:27)
[2019-06-09] MEDS: Nystatin POWDER 30 GM BOTTLE TP SCH ×2 (08:07→20:27)
[2019-06-09] MEDS: Aspirin Enteric Coated 81 MG Tablet PO SCH (08:07)
[2019-06-09] MEDS: Furosemide 40 MG/4 ML VIAL IVP SCH ×2 (08:07→17:30)
[2019-06-09] MEDS: Insulin LISPRO 300 UNITS/3 ML VIAL SQ SCH ×4 (08:07→20:28)
[2019-06-09 09:37] LABS: Bilirubin,Urine Negative (Negative); Blood,Urine Large (Negative); Clarity,Urine Cloudy (Clear); Glucose,Urine (UA) Normal (Normal); Ketones,Urine Negative (Negative); Leukocyte Esterase,Urine Moderate (Negative); Nitrite,Urine Negative (Negative); PH,Urine 6.5 pH Units (5.0-8.0); Protein,Urine 30 mg/dL (Neg-Trace); Specific Gravity,Urine 1.016 (1.010-1.025); Urobilinogen,Urine Normal (Normal)
[2019-06-09 09:40] LABS: Bacteria,Urine Many per hpf (None-Few); Squamous Epithelial Cell,Urine Many per lpf (None-Few)
[2019-06-09 09:44] LABS: Hyaline Casts,Urine None Seen per lpf (None-Few); RBC,Urine TNTC per hpf (0-3); WBC,Urine 30-50 per hpf (0-3)
[2019-06-09 09:47] LABS: Color,Urine Light-Red (Yellow)
[2019-06-09] MEDS: Piperacillin/Tazobactam 3.375 GM in 0.9 % Sodium Chloride Mini Bag 100 ML IVPB SCH ×2 (13:04→20:26)
[2019-06-09] MEDS ORDERED: Furosemide 40 MG/4 ML VIAL IVP SCH (17:00)
[2019-06-09] MEDS: *HR* Rivaroxaban 10 MG TABLET PO SCH (17:31)
[2019-06-09] MEDS: Doxycycline 100 MG CAPSULE PO SCH (20:26)
[2019-06-10] MEDS: Levalbuterol Neb 1.25 MG/3 ML IH SCH ×7 (00:02→23:12)
[2019-06-10 03:22] LABS: Hematocrit 41.7 % (35.3-44.9); Hemoglobin 13.9 g/dL (11.5-15.4); Mean Corpuscular HGB Conc 33.3 g/dL (31.6-35.5); Mean Corpuscular Hemoglobin 31.6 pg (28.0-33.3); Mean Corpuscular Volume 94.8 fL (83.0-100.0); Platelet Count 225 K/mcL (140-400); Red Cell Distribution Width 14.4 % (11.5-14.5); White Blood Count 10.2 K/mcL (4.3-11.1)
[2019-06-10 03:41] LABS: BUN/Creatinine Ratio 42 (6-26); Blood Urea Nitrogen 36 mg/dL (8-23); Calcium 9.2 mg/dL (8.6-10.3); Carbon Dioxide 37 mEq/L (23-29); Chloride 98 mEq/L (98-107); Glucose 191 mg/dL (70-105); Magnesium 2.3 mg/dL (1.6-2.6); Osmolality,Calculated 311 (280-300); Potassium 3.5 mEq/L (3.5-5.1); Sodium 144 mEq/L (136-145); eGFR For African Americans > 60 (> 60); eGFR For Non-African Americans > 60 (> 60)
[2019-06-10] MEDS: MethylPREDNISolone 40 MG/ML VIAL IVP SCH ×2 (05:12→18:09)
[2019-06-10] MEDS: DilTIAZem 50 MG in 0.9 % Sodium Chloride 40 ML IVC SCH ×2 (05:13→19:25)
[2019-06-10] MEDS: Piperacillin/Tazobactam 3.375 GM in 0.9 % Sodium Chloride Mini Bag 100 ML IVPB SCH ×3 (05:13→20:30)
[2019-06-10] MEDS: Aspirin Enteric Coated 81 MG Tablet PO SCH (07:53)
[2019-06-10] MEDS: Doxycycline 100 MG CAPSULE PO SCH ×2 (07:53→20:29)
[2019-06-10] MEDS: Furosemide 40 MG/4 ML VIAL IVP SCH ×2 (07:53→16:18)
[2019-06-10] MEDS: Gabapentin 300 MG CAPSULE PO SCH ×2 (07:53→20:28)
[2019-06-10] MEDS: Cholecalciferol (D-3) 1,000 UNIT (25MCG) TABLET PO SCH (07:53)
[2019-06-10] MEDS: Insulin LISPRO 300 UNITS/3 ML VIAL SQ SCH ×4 (07:54→20:32)
[2019-06-10] MEDS: Nystatin POWDER 30 GM BOTTLE TP SCH ×2 (07:54→20:32)
[2019-06-10 14:56] LABS: INR 1.4; Prothrombin Time 16.3 Seconds (9.4-12.1)
[2019-06-10] MEDS ORDERED: *HR* Heparin 5,000 UNIT/ML VIAL IVP PRN ×2 (17:00)
[2019-06-10] MEDS ORDERED: *HR* Warfarin 5 MG TABLET PO ONE (18:00)
[2019-06-10] MEDS ORDERED: Warfarin perPT PO PRN (18:00)
[2019-06-10] MEDS: Heparin 25,000 UNIT/250 ML D5W 25,000 UNIT/250 ML IV.SOLN IVC SCH (18:09)
[2019-06-10] MEDS: Insulin DETEMIR 100 UNIT/ML X5UNITS SQ SCH (20:29)
[2019-06-11 01:18] LABS: VBG HCO3 37 mEq/L (21-27); VBG PCO2 61 mmHg (41-51); VBG PH 7.39 pH Units (7.32-7.42); VBG PO2 124 mmHg (25-50)
[2019-06-11 01:18] LABS: Hematocrit 42.6 % (35.3-44.9); Mean Corpuscular HGB Conc 32.9 g/dL (31.6-35.5); Mean Corpuscular Hemoglobin 31.6 pg (28.0-33.3); Mean Corpuscular Volume 96.2 fL (83.0-100.0); Mean Platelet Volume 10.1 fL (9.4-12.4); Platelet Count 220 K/mcL (140-400); Red Blood Count 4.43 M/mcL (3.82-4.97); Red Cell Distribution Width 14.3 % (11.5-14.5); White Blood Count 11.3 K/mcL (4.3-11.1)
[2019-06-11 01:19] LABS: INR 1.3; Prothrombin Time 15.2 Seconds (9.4-12.1)
[2019-06-11 01:39] LABS: BUN/Creatinine Ratio 47 (6-26); Blood Urea Nitrogen 40 mg/dL (8-23); Calcium 9.3 mg/dL (8.6-10.3); Carbon Dioxide 35 mEq/L (23-29); Chloride 99 mEq/L (98-107); Glucose 207 mg/dL (70-105); Osmolality,Calculated 310 (280-300); Potassium 3.4 mEq/L (3.5-5.1); Sodium 142 mEq/L (136-145); eGFR For African Americans > 60 (> 60); eGFR For Non-African Americans > 60 (> 60)
[2019-06-11] MEDS: Levalbuterol Neb 1.25 MG/3 ML IH SCH ×6 (03:31→23:36)
[2019-06-11] MEDS: Piperacillin/Tazobactam 3.375 GM in 0.9 % Sodium Chloride Mini Bag 100 ML IVPB SCH ×3 (05:57→21:18)
[2019-06-11] MEDS: MethylPREDNISolone 40 MG/ML VIAL IVP SCH ×2 (05:57→18:02)
[2019-06-11] MEDS ORDERED: Potassium Chloride Elixir 20 MEQ/15 ML UDC PO ONE (07:14)
[2019-06-11] MEDS: Doxycycline 100 MG CAPSULE PO SCH (07:59)
[2019-06-11] MEDS: Aspirin Enteric Coated 81 MG Tablet PO SCH (08:00)
[2019-06-11] MEDS: Cholecalciferol (D-3) 1,000 UNIT (25MCG) TABLET PO SCH (08:00)
[2019-06-11] MEDS: Gabapentin 300 MG CAPSULE PO SCH ×2 (08:00→21:16)
[2019-06-11] MEDS: Furosemide 40 MG/4 ML VIAL IVP SCH ×2 (08:00→16:43)
[2019-06-11] MEDS: Insulin LISPRO 300 UNITS/3 ML VIAL SQ SCH ×4 (08:02→21:15)
[2019-06-11] MEDS: DilTIAZem 50 MG in 0.9 % Sodium Chloride 40 ML IVC SCH (08:10)
[2019-06-11] MEDS ORDERED: amLODIPine 5 MG TABLET PO SCH (09:00)
[2019-06-11] MEDS: Heparin 25,000 UNIT/250 ML D5W 25,000 UNIT/250 ML IV.SOLN IVC SCH (13:02)
[2019-06-11] MEDS: Nystatin POWDER 30 GM BOTTLE TP SCH ×2 (13:29→21:18)
[2019-06-11] MEDS: DilTIAZem CD (24hr) 180 MG CAP.ER.24H PO SCH (13:40)
[2019-06-11] MEDS ORDERED: *HR* Warfarin 5 MG TABLET PO ONE (18:00)
[2019-06-11] MEDS: Insulin DETEMIR 100 UNIT/ML X5UNITS SQ SCH (21:15)
[2019-06-11] MEDS ORDERED: Prochlorperazine 10 MG/2 ML VIAL IVP PRN (23:38)
[2019-06-12 01:00] LABS: Hematocrit 43.6 % (35.3-44.9); Hemoglobin 14.4 g/dL (11.5-15.4); Mean Corpuscular Hemoglobin 31.2 pg (28.0-33.3); Mean Corpuscular Volume 94.6 fL (83.0-100.0); Mean Platelet Volume 10.1 fL (9.4-12.4); Platelet Count 218 K/mcL (140-400); Red Blood Count 4.61 M/mcL (3.82-4.97); Red Cell Distribution Width 14.3 % (11.5-14.5); White Blood Count 10.2 K/mcL (4.3-11.1)
[2019-06-12 01:02] LABS: INR 1.5; Prothrombin Time 17.3 Seconds (9.4-12.1)
[2019-06-12 01:12] LABS: BUN/Creatinine Ratio 44 (6-26); Blood Urea Nitrogen 38 mg/dL (8-23); Carbon Dioxide 36 mEq/L (23-29); Chloride 97 mEq/L (98-107); Glucose 207 mg/dL (70-105); Osmolality,Calculated 309 (280-300); Potassium 3.5 mEq/L (3.5-5.1); Sodium 142 mEq/L (136-145); eGFR For African Americans > 60 (> 60); eGFR For Non-African Americans > 60 (> 60)
[2019-06-12] MEDS: Levalbuterol Neb 1.25 MG/3 ML IH SCH ×6 (03:31→22:56)
[2019-06-12] MEDS ORDERED: Simethicone 80 MG TAB.CHEW PO ONE (03:39)
[2019-06-12] MEDS: MethylPREDNISolone 40 MG/ML VIAL IVP SCH ×2 (05:26→17:43)
[2019-06-12] MEDS: Piperacillin/Tazobactam 3.375 GM in 0.9 % Sodium Chloride Mini Bag 100 ML IVPB SCH ×3 (05:27→20:19)
[2019-06-12 06:32] LABS: VBG HCO3 37 mEq/L (21-27); VBG PCO2 60 mmHg (41-51); VBG PO2 157 mmHg (25-50)
[2019-06-12] MEDS: Insulin LISPRO 300 UNITS/3 ML VIAL SQ SCH ×4 (08:18→20:36)
[2019-06-12] MEDS: Aspirin Enteric Coated 81 MG Tablet PO SCH (08:21)
[2019-06-12] MEDS: DilTIAZem CD (24hr) 180 MG CAP.ER.24H PO SCH (08:21)
[2019-06-12] MEDS: Cholecalciferol (D-3) 1,000 UNIT (25MCG) TABLET PO SCH (08:21)
[2019-06-12] MEDS: Gabapentin 300 MG CAPSULE PO SCH ×2 (08:21→20:23)
[2019-06-12] MEDS: Furosemide 40 MG/4 ML VIAL IVP SCH ×2 (08:21→16:16)
[2019-06-12] MEDS: Nystatin POWDER 30 GM BOTTLE TP SCH ×2 (08:22→20:31)
[2019-06-12] MEDS ORDERED: *HR* Warfarin 5 MG TABLET PO ONE (18:00)
[2019-06-12] MEDS: Heparin 25,000 UNIT/250 ML D5W 25,000 UNIT/250 ML IV.SOLN IVC SCH ×2 (20:24→20:29)
[2019-06-12] MEDS: Insulin DETEMIR 100 UNIT/ML X5UNITS SQ SCH (20:35)
[2019-06-13] MEDS: Levalbuterol Neb 1.25 MG/3 ML IH SCH ×6 (03:44→23:11)
[2019-06-13] MEDS: Piperacillin/Tazobactam 3.375 GM in 0.9 % Sodium Chloride Mini Bag 100 ML IVPB SCH ×2 (05:02→12:10)
[2019-06-13] MEDS: MethylPREDNISolone 40 MG/ML VIAL IVP SCH (05:02)
[2019-06-13 05:22] LABS: Basophils % 0.2 %; Hematocrit 44.3 % (35.3-44.9); Hemoglobin 14.4 g/dL (11.5-15.4); Immature Granulocytes % 1.2 % (0-4); Lymphocytes # 0.5 K/mcL (0.6-4.6); Lymphocytes % 4.2 %; Mean Corpuscular HGB Conc 32.5 g/dL (31.6-35.5); Mean Corpuscular Hemoglobin 30.9 pg (28.0-33.3); Mean Corpuscular Volume 95.1 fL (83.0-100.0); Mean Platelet Volume 10.4 fL (9.4-12.4); Monocytes # 0.4 K/mcL (0.0-1.3); Monocytes % 3.2 %; Neutrophils # 10.2 K/mcL (1.6-8.9); Platelet Count 205 K/mcL (140-400); Red Blood Count 4.66 M/mcL (3.82-4.97); Red Cell Distribution Width 14.3 % (11.5-14.5); Segmented Neutrophils % 91.2 %; White Blood Count 11.2 K/mcL (4.3-11.1)
[2019-06-13 05:26] LABS: Activated Partial Thrombo Time 71.8 Seconds (26.0-36.0)
[2019-06-13 05:27] LABS: INR 3.6; Prothrombin Time 41.4 Seconds (9.4-12.1)
[2019-06-13 05:41] LABS: Alanine Aminotransferase 52 Units/L (7-52); Albumin 3.3 g/dL (3.5-5.7); Albumin/Globulin Ratio 1.4 (1.1-2.2); Alkaline Phosphatase 67 Units/L (34-104); Aspartate Amino Transferase 18 Units/L (13-39); BUN/Creatinine Ratio 46 (6-26); Bilirubin,Direct 0.1 mg/dL (0.0-0.2); Bilirubin,Indirect 0.4 mg/dL (0.0-1.0); Bilirubin,Total 0.5 mg/dL (0.3-1.0); Blood Urea Nitrogen 36 mg/dL (8-23); Carbon Dioxide 35 mEq/L (23-29); Chloride 98 mEq/L (98-107); Globulin 2.3 g/dL (2.4-3.5); Glucose 209 mg/dL (70-105); Magnesium 2.3 mg/dL (1.6-2.6); Osmolality,Calculated 308 (280-300); Potassium 3.3 mEq/L (3.5-5.1); Sodium 142 mEq/L (136-145); Total Protein 5.6 g/dL (6.4-8.9); eGFR For African Americans > 60 (> 60); eGFR For Non-African Americans > 60 (> 60)
[2019-06-13] MEDS: Gabapentin 300 MG CAPSULE PO SCH ×2 (09:06→21:27)
[2019-06-13] MEDS: Aspirin Enteric Coated 81 MG Tablet PO SCH (09:06)
[2019-06-13] MEDS: Cholecalciferol (D-3) 1,000 UNIT (25MCG) TABLET PO SCH (09:06)
[2019-06-13] MEDS: DilTIAZem CD (24hr) 180 MG CAP.ER.24H PO SCH (09:06)
[2019-06-13] MEDS: Nystatin POWDER 30 GM BOTTLE TP SCH ×2 (09:06→21:28)
[2019-06-13] MEDS: Furosemide 40 MG/4 ML VIAL IVP SCH ×2 (09:06→17:25)
[2019-06-13] MEDS: Insulin LISPRO 300 UNITS/3 ML VIAL SQ SCH ×4 (09:13→21:29)
[2019-06-13 09:29] LABS: Prothrombin Time 45.8 Seconds (9.4-12.1)
[2019-06-13 10:19] LABS: Prothrombin Time 45.2 Seconds (9.4-12.1)
[2019-06-13] MEDS ORDERED: Furosemide 40 MG/4 ML VIAL IVP ONE ×2 (12:00→12:23)
[2019-06-13] MEDS: Insulin DETEMIR 100 UNIT/ML X5UNITS SQ SCH (21:28)
[2019-06-14] MEDS: Levalbuterol Neb 1.25 MG/3 ML IH SCH ×6 (03:31→23:16)
[2019-06-14 05:25] LABS: Basophils % 0.2 %; Hematocrit 45.6 % (35.3-44.9); Hemoglobin 14.8 g/dL (11.5-15.4); Lymphocytes # 0.7 K/mcL (0.6-4.6); Lymphocytes % 5.3 %; Mean Corpuscular HGB Conc 32.5 g/dL (31.6-35.5); Mean Corpuscular Volume 95.4 fL (83.0-100.0); Monocytes # 0.8 K/mcL (0.0-1.3); Monocytes % 6.4 %; Neutrophils # 10.9 K/mcL (1.6-8.9); Platelet Count 213 K/mcL (140-400); Red Blood Count 4.78 M/mcL (3.82-4.97); Red Cell Distribution Width 14.5 % (11.5-14.5); Segmented Neutrophils % 87.1 %; White Blood Count 12.5 K/mcL (4.3-11.1)
[2019-06-14 05:27] LABS: INR 3.7; Prothrombin Time 42.4 Seconds (9.4-12.1)
[2019-06-14 05:43] LABS: BUN/Creatinine Ratio 46 (6-26); Blood Urea Nitrogen 36 mg/dL (8-23); Calcium 9.2 mg/dL (8.6-10.3); Carbon Dioxide 36 mEq/L (23-29); Chloride 99 mEq/L (98-107); Glucose 173 mg/dL (70-105); Magnesium 2.4 mg/dL (1.6-2.6); Osmolality,Calculated 306 (280-300); Potassium 3.9 mEq/L (3.5-5.1); Sodium 142 mEq/L (136-145); eGFR For African Americans > 60 (> 60); eGFR For Non-African Americans > 60 (> 60)
[2019-06-14] MEDS: Insulin LISPRO 300 UNITS/3 ML VIAL SQ SCH ×4 (08:15→20:55)
[2019-06-14] MEDS: Gabapentin 300 MG CAPSULE PO SCH ×2 (11:08→20:55)
[2019-06-14] MEDS: Aspirin Enteric Coated 81 MG Tablet PO SCH (11:09)
[2019-06-14] MEDS: predniSONE 20 MG TABLET PO SCH (11:09)
[2019-06-14] MEDS: Nystatin POWDER 30 GM BOTTLE TP SCH ×2 (11:09→20:56)
[2019-06-14] MEDS: Cholecalciferol (D-3) 1,000 UNIT (25MCG) TABLET PO SCH (11:09)
[2019-06-14] MEDS: DilTIAZem CD (24hr) 180 MG CAP.ER.24H PO SCH (11:09)
[2019-06-14] MEDS: Furosemide 40 MG/4 ML VIAL IVP SCH ×3 (11:09→20:54)
[2019-06-14] MEDS: Insulin DETEMIR 100 UNIT/ML X5UNITS SQ SCH (20:55)
[2019-06-15] MEDS: Levalbuterol Neb 1.25 MG/3 ML IH SCH ×6 (03:50→23:15)
[2019-06-15 03:55] LABS: Basophils % 0.3 %; Eosinophils % 0.2 %; Hematocrit 46.1 % (35.3-44.9); Lymphocytes # 0.6 K/mcL (0.6-4.6); Lymphocytes % 5.2 %; Mean Corpuscular HGB Conc 32.5 g/dL (31.6-35.5); Mean Corpuscular Hemoglobin 31.3 pg (28.0-33.3); Monocytes # 0.7 K/mcL (0.0-1.3); Monocytes % 6.1 %; Neutrophils # 9.5 K/mcL (1.6-8.9); Platelet Count 182 K/mcL (140-400); Red Cell Distribution Width 14.2 % (11.5-14.5); Segmented Neutrophils % 87.2 %; White Blood Count 10.8 K/mcL (4.3-11.1)
[2019-06-15 03:59] LABS: INR 2.9; Prothrombin Time 32.8 Seconds (9.4-12.1)
[2019-06-15 04:34] LABS: BUN/Creatinine Ratio 39 (6-26); Blood Urea Nitrogen 30 mg/dL (8-23); Calcium 9.1 mg/dL (8.6-10.3); Carbon Dioxide 38 mEq/L (23-29); Chloride 97 mEq/L (98-107); Glucose 146 mg/dL (70-105); Magnesium 2.4 mg/dL (1.6-2.6); Osmolality,Calculated 305 (280-300); Potassium 3.9 mEq/L (3.5-5.1); Sodium 143 mEq/L (136-145); eGFR For African Americans > 60 (> 60); eGFR For Non-African Americans > 60 (> 60)
[2019-06-15] MEDS: Acetylcysteine 10% 2 ML INHSOL IH SCH ×5 (08:35→23:15)
[2019-06-15] MEDS: Insulin LISPRO 300 UNITS/3 ML VIAL SQ SCH ×4 (09:17→21:21)
[2019-06-15] MEDS: predniSONE 20 MG TABLET PO SCH (09:38)
[2019-06-15] MEDS: DilTIAZem CD (24hr) 180 MG CAP.ER.24H PO SCH (09:38)
[2019-06-15] MEDS: Cholecalciferol (D-3) 1,000 UNIT (25MCG) TABLET PO SCH (09:38)
[2019-06-15] MEDS: Aspirin Enteric Coated 81 MG Tablet PO SCH (09:38)
[2019-06-15] MEDS: Gabapentin 300 MG CAPSULE PO SCH ×2 (09:38→21:18)
[2019-06-15] MEDS: Furosemide 40 MG/4 ML VIAL IVP SCH ×2 (09:38→17:04)
[2019-06-15] MEDS: Nystatin POWDER 30 GM BOTTLE TP SCH ×2 (17:03→21:34)
[2019-06-15] MEDS ORDERED: *HR* Warfarin 2.5 MG TABLET PO ONE (18:00)
[2019-06-15] MEDS: Insulin DETEMIR 100 UNIT/ML X5UNITS SQ SCH (21:20)
[2019-06-16] MEDS: Levalbuterol Neb 1.25 MG/3 ML IH SCH ×6 (03:33→23:27)
[2019-06-16] MEDS: Acetylcysteine 10% 2 ML INHSOL IH SCH ×6 (03:33→23:27)
[2019-06-16 04:36] LABS: Basophils % 0.2 %; Eosinophils # 0.1 K/mcL (0.0-0.6); Eosinophils % 0.5 %; Hematocrit 45.2 % (35.3-44.9); Immature Granulocytes % 1.2 % (0-4); Lymphocytes # 0.7 K/mcL (0.6-4.6); Lymphocytes % 6.5 %; Mean Corpuscular HGB Conc 33.2 g/dL (31.6-35.5); Mean Corpuscular Hemoglobin 31.5 pg (28.0-33.3); Mean Platelet Volume 10.3 fL (9.4-12.4); Monocytes # 0.8 K/mcL (0.0-1.3); Monocytes % 6.9 %; Neutrophils # 9.4 K/mcL (1.6-8.9); Platelet Count 188 K/mcL (140-400); Red Blood Count 4.76 M/mcL (3.82-4.97); Red Cell Distribution Width 14.1 % (11.5-14.5); Segmented Neutrophils % 84.7 %; White Blood Count 11.1 K/mcL (4.3-11.1)
[2019-06-16 04:38] LABS: INR 2.3; Prothrombin Time 25.8 Seconds (9.4-12.1)
[2019-06-16 04:53] LABS: BUN/Creatinine Ratio 46 (6-26); Blood Urea Nitrogen 35 mg/dL (8-23); Calcium 9.2 mg/dL (8.6-10.3); Carbon Dioxide 38 mEq/L (23-29); Chloride 98 mEq/L (98-107); Glucose 147 mg/dL (70-105); Magnesium 2.5 mg/dL (1.6-2.6); Osmolality,Calculated 303 (280-300); Potassium 3.8 mEq/L (3.5-5.1); Sodium 141 mEq/L (136-145); eGFR For African Americans > 60 (> 60); eGFR For Non-African Americans > 60 (> 60)
[2019-06-16] MEDS: Insulin LISPRO 300 UNITS/3 ML VIAL SQ SCH ×4 (07:39→22:17)
[2019-06-16] MEDS: Gabapentin 300 MG CAPSULE PO SCH ×2 (09:15→22:16)
[2019-06-16] MEDS: DilTIAZem CD (24hr) 240 MG CAP.ER.24H PO SCH (09:15)
[2019-06-16] MEDS: Aspirin Enteric Coated 81 MG Tablet PO SCH (09:15)
[2019-06-16] MEDS: predniSONE 20 MG TABLET PO SCH (09:15)
[2019-06-16] MEDS: Cholecalciferol (D-3) 1,000 UNIT (25MCG) TABLET PO SCH (09:15)
[2019-06-16] MEDS: Spironolactone 25 MG TABLET PO SCH (09:15)
[2019-06-16] MEDS: Furosemide 40 MG/4 ML VIAL IVP SCH ×2 (09:15→16:00)
[2019-06-16] MEDS: Nystatin POWDER 30 GM BOTTLE TP SCH ×2 (09:16→22:22)
[2019-06-16] MEDS ORDERED: methylPREDNISolone 125 MG/2 ML VIAL IVP ONE (13:37)
[2019-06-16] MEDS ORDERED: *HR* Warfarin 2.5 MG TABLET PO ONE (18:00)
[2019-06-16] MEDS: Insulin DETEMIR 100 UNIT/ML X5UNITS SQ SCH (22:20)
[2019-06-17] MEDS: Levalbuterol Neb 1.25 MG/3 ML IH SCH ×4 (03:24→16:07)
[2019-06-17] MEDS: Acetylcysteine 10% 2 ML INHSOL IH SCH ×4 (03:24→16:07)
[2019-06-17 04:31] LABS: Basophils % 0.1 %; Hematocrit 45.4 % (35.3-44.9); Hemoglobin 14.6 g/dL (11.5-15.4); Immature Granulocytes % 1.6 % (0-4); Lymphocytes # 0.6 K/mcL (0.6-4.6); Lymphocytes % 5.1 %; Mean Corpuscular HGB Conc 32.2 g/dL (31.6-35.5); Mean Corpuscular Hemoglobin 31.2 pg (28.0-33.3); Mean Platelet Volume 10.5 fL (9.4-12.4); Monocytes # 0.2 K/mcL (0.0-1.3); Monocytes % 1.9 %; Neutrophils # 10.2 K/mcL (1.6-8.9); Platelet Count 181 K/mcL (140-400); Red Blood Count 4.68 M/mcL (3.82-4.97); Red Cell Distribution Width 14.3 % (11.5-14.5); Segmented Neutrophils % 91.3 %; White Blood Count 11.2 K/mcL (4.3-11.1)
[2019-06-17 04:34] LABS: INR 2.7; Prothrombin Time 30.9 Seconds (9.4-12.1)
[2019-06-17 04:50] LABS: BUN/Creatinine Ratio 51 (6-26); Blood Urea Nitrogen 40 mg/dL (8-23); Calcium 9.5 mg/dL (8.6-10.3); Carbon Dioxide 38 mEq/L (23-29); Chloride 97 mEq/L (98-107); Glucose 208 mg/dL (70-105); Magnesium 2.4 mg/dL (1.6-2.6); Osmolality,Calculated 306 (280-300); Potassium 3.9 mEq/L (3.5-5.1); Sodium 140 mEq/L (136-145); eGFR For African Americans > 60 (> 60); eGFR For Non-African Americans > 60 (> 60)
[2019-06-17] MEDS: DilTIAZem CD (24hr) 240 MG CAP.ER.24H PO SCH (08:54)
[2019-06-17] MEDS: Aspirin Enteric Coated 81 MG Tablet PO SCH (08:56)
[2019-06-17] MEDS: Gabapentin 300 MG CAPSULE PO SCH (08:56)
[2019-06-17] MEDS: Cholecalciferol (D-3) 1,000 UNIT (25MCG) TABLET PO SCH (08:56)
[2019-06-17] MEDS: Furosemide 40 MG/4 ML VIAL IVP SCH (08:57)
[2019-06-17] MEDS: Spironolactone 25 MG TABLET PO SCH (08:57)
[2019-06-17] MEDS: Insulin LISPRO 300 UNITS/3 ML VIAL SQ SCH ×2 (09:04→11:58)
[2019-06-17] MEDS ORDERED: DilTIAZem CD (24hr) 180 MG CAP.ER.24H PO SCH (09:30)
[2019-06-17 14:47] VITALS: BP 145/79
[2019-06-17] MEDS ORDERED: *HR* Warfarin 3 MG TABLET PO ONE (18:00)
== END 2019-06-17 18:10 | disposition home health service (06) | DRG 291 ==
LOC: EMEROOARM 11:07 → 2NENU 11:07 → SUATTDRO 13:59 → 2NENU 15:15
PROVIDERS: ADMIT Internal Medicine; ATTEND Pharmacist